=== PATIENT | male | born 1985 | race Caucasian/White ===

== ENCOUNTER 2019-07-01 20:00 | Outpatient (CLI) | payer OTHER, SELFPAY | END 2019-07-01 20:01 | disposition home or self-care (01) | LOC: SLEEP 07-02 09:23 | PROVIDERS: Visit Provider Family Medicine | DX: G47.33 Obstructive sleep apnea (adult) (pediatric) (principal) | CPT/HCPCS: 95810 ==

== ENCOUNTER 2019-08-06 20:00 | Outpatient (CLI) | payer OTHER, SELFPAY | END 2019-08-06 20:01 | disposition home or self-care (01) | LOC: SLEEP 08-07 08:42 | PROVIDERS: Visit Provider Family Medicine | DX: G47.33 Obstructive sleep apnea (adult) (pediatric) (principal) | CPT/HCPCS: 95810; 95811 ==

== ENCOUNTER 2021-12-26 21:08 | Emergency (ER) | payer OTHER, SELFPAY ==
[2021-12-26 21:42] VITALS: BP 132/87; PULSE 84; RESP 18; TEMP 37.1; O2SAT 95; BMI 29.8
[2021-12-26 22:19] LABS: Basophils % 0.5 %; Eosinophils # 0.1 10^3/uL (0.0-0.8); Eosinophils % 2.3 %; Hematocrit 43.9 % (42.0-52.0); Hemoglobin 15.6 g/dL (11.7-16.6); Lymphocytes % 49.1 %; Mean Corpuscular HGB Conc 35.5 g/dL (30.0-36.0); Mean Corpuscular Hemoglobin 30.1 pg (28.0-34.0); Mean Corpuscular Volume 84.6 fl (80-94); Mean Platelet Volume 11.3 fL (7.4-10.4); Monocytes # 0.5 10^3/uL (0.2-0.9); Monocytes % 7.9 %; Neutrophils # 2.45 10^3/uL (1.8-7.7); Nucleated Red Blood Cells % 0 %; Platelet Count 143 10^3/cmm (130-400); Red Blood Count 5.19 10^6/uL (4.1-5.3); Red Cell Distribution Width 11.7 % (12.1-15.1); White Blood Count 6.1 10^3/uL (4.0-10.0)
[2021-12-26 22:21] LABS: Add Urine Microscopic? NO; Charge for UA Resulting for Rev
[2021-12-26 22:28] LABS: Bilirubin Urine Neg (Negative); Blood Urine Neg (Negative); Glucose Urine UA Norm (Normal); Ketones Urine Negative (Negative); Leukocyte Esterase Urine Negative (Negative); Nitrate Urine Negative (Negative); Protein Urine Neg (Negative); Urine Appearance Clear (CLEAR); Urine Color Colorless (Yellow); Urobilinogen Urine Norm (Negative); pH Urine 5 (5-7)
[2021-12-26 22:41] LABS: Alanine Aminotransferase 31 U/L (0-41); Albumin Level 4.6 g/dL (3.5-5.2); Alkaline Phosphatase 72 IU/L (40-130); Anion Gap 16.4 (5-19); Aspartate Amino Transferase 27 U/L (0-40); Blood Urea Nitrogen 13 mg/dL (6-20); Calcium 8.8 mg/dL (8.5-10.5); Carbon Dioxide 24 mmol/L (22-29); Chloride 98 mmol/L (98-107); Globulin 2.4 g/dL (1.3-4.6); Glomerular Filtration Rate 67.8 mL/min (90-130); Glucose 94 mg/dL (65-115); Lipase 43 U/L (13-60); Osmolality Calculated 280 mOsm/kg (285-295); Potassium 3.4 mmol/L (3.5-5.1); Sodium 135 mmol/L (136-145); Total Bilirubin 0.4 mg/dL (0.15-1.2)
--- NOTE | 2021-12-27 00:30 | ED_ITS ---
HPI - Abdominal Pain General: Chief Complaint: Abdominal Pain Stated Complaint: Sever ABD Pain Time Seen by Provider: 12/27/21 00:30 History of Present Illness: Mr. Gonzalez is a 36-year-old gentleman without significant past medical history presents to the emergency department due to abdominal pain. He reports onset of symptoms 1 to 2 months ago without known specific provoking factor. Since that time he has had intermittent episodes though increasing in frequency and intensity of left lower quadrant pinpoint pain with some radiation to the right lower quadrant. This does not seem to be provoked by any certain activity including eating. He does have nausea. He also reports a longstanding history of having to have bowel movements quickly after eating. No history of abdominal trauma or surgeries. Overall course has worsened. Intensity this evening with severe however has since improved to moderate. No other specific changes in health, exacerbating, or alleviating factors identified. Onset (ago): month(s) Pain Consistency: intermittent Location: LLQ Severity: moderate Quality: other Radiation: RLQ Exacerbating factors: nothing Relieving factors: nothing Associated Symptoms: Reports nausea Review of Systems General: Reports: 10 or more systems reviewed and unremarkable except in HPI and below GI: Reports: nausea PFSH ED PFSH: Medical History Actinic keratoses Chronic diarrhea Gout Hyperlipemia No significant past medical history Personal history of traumatic brain injury PTSD (post-traumatic stress disorder) Sleep apnea Surgical History History of left knee surgery No significant past surgical history Social History Smoking and tobacco status: never smoked Physical Exam Const: COMMON NORMALS: alert GENERAL APPEARANCE: cooperative and well developed HENMT: COMMON NORMALS: normocephalic and atraumatic HEAD & SCALP: normocephalic and atraumatic Eye: COMMON NORMALS: conjunctivae normal CONJUNCTIVA: Yes conjunctivae normal SCLERA: sclerae normal Neck/C-Spine: COMMON NORMALS: supple GENERAL: Yes trachea midline Resp: COMMON NORMALS: normal respiratory effort EFFORT & INSPECTION: Yes able to speak in complete sentences Cardio: COMMON NORMALS: regular rate and regular rhythm RATE: regular rate RHYTHM: regular rhythm GI: COMMON NORMALS: Soft to palpation PALPATION: Yes Soft to palpation, Yes Tenderness to palpation present (GI) Details: LLQ, No Guarding due to palpation present (GI), No Rigid due to palpation and No Rebound tenderness present PERCUSSION: normal to percussion Extremity: GENERAL: Yes normal exam except as noted and No edema Neuro: COMMON NORMALS: moves all extremities SENSORIUM/ORIENTATION: Yes alert and No Orientation impaired Psych: COMMON NORMALS: mental status grossly normal and Normal thought process present THOUGHT PROCESS: Normal thought process present Course ED course: - Patient was seen and evaluated by me at bedside - Patient placed on cardiac monitors, IV access obtained - Initial evaluation notable for exam as above - Labs personally interpreted by me -Analgesia given - Labs notable for no leukocytosis, normal hemoglobin. Metabolic panel with mild evidence of dehydration. Negative UA. - Given abdominal exam I feel that imaging is appropriate. Imaging notable for no acute pathology to explain symptoms. I did discuss the indeterminate 7 mm lesion in the lower left kidney requires further evaluation. - Upon serial reexamination after treatment the patient was improved - Based on patient history, evaluation, and testing as interpreted the most likely cause of the patient's condition is abdominal pain of uncertain etiology - The results of ED evaluation were discussed with the patient including prescriptions and/or symptomatic cares (if applicable) including appropriate and responsible use, followup plan, and return precautions. The patient verbalized understanding and felt safe for discharge. - Patient discharged in satisfactory condition. Note: Click bubbles or prepopulated shields in note writing are used for assistance with data collection and billing and are inherently more limited than narrative and other text portions of this note. Please use narrative for additional clinical history and defer to narrative/free test for any case of contradictory information. If information appears in only free text or click bubble it should be considered present or absent as reported. Please contact note commercial loan underwriter for clarifications of clinical information or contradictory information. MDM is a brief summary, contradictory or erroneous seeming information should be clarified and full note should be reviewed. Vital Signs: Vital signs: Vital Signs Temperature 98.7 F 12/26/21 21:42 Pulse Rate 84 12/27/21 03:26 Respiratory Rate 16 12/27/21 03:26 Blood Pressure 139/91 12/27/21 03:26 Pulse Oximetry 97 12/27/21 03:26 Oxygen Delivery Hi thod 12/26/21 21:42 MDM - Abdominal Pain Medical Decision Making 36-year-old gentleman presenting with abdominal pain. Labs without significant abnormality with exception mild dehydration. CT without acute pathology to explain symptoms. Patient does have indeterminant 7 mm renal lesion requiring further evaluation. He was improved after treatment and satisfactory for outpatient management. Medical Records I reviewed the patient's medical records. Lab Data I reviewed the patient's lab results. : 12/26/21 22:04 12/26/21 22:04 Labs/Radiology: Radiology Impressions Abdomen/Pelvis CT 12/27/21 00:41 IMPRESSION: 1. Normal appendix. 2. Indeterminate 7 mm lesion in the lateral lower left kidney. This could represent a complex cyst or solid mass/neoplasm. Further evaluation recommended, see above discussion. 3. Additional probable left renal cysts, details above. 4. No hydronephrosis of either kidney. No visible ureteral calculus. 5. No findings to strongly suggest diverticulitis. 6. No free air or bowel distention. 7. Other findings discussed above. COMMENTS: Consistent with the [employer]'s Incidental Findings Committee white paper (J Am Franny Radiol 2018): Any incidental renal lesion less than 1 cm or classified as too small to characterize, or any incidental cystic renal lesion characterized as simple-appearing, is likely benign. No follow-up imaging is recommended for these lesions per consensus recommendations based on imaging criteria. Laboratory Results WBC 6.1 10^3/uL (4.0-10.0) 12/26/21 22:04 RBC 5.19 10^6/uL (4.1-5.3) 12/26/21 22:04 Hgb 15.6 g/dL (11.7-16.6) 12/26/21 22:04 Hct 43.9 % (42.0-52.0) 12/26/21 22:04 MCV 84.6 fl (80-94) 12/26/21 22:04 MCH 30.1 pg (28.0-34.0) 12/26/21 22:04 MCHC 35.5 g/dL (30.0-36.0) 12/26/21 22:04 RDW 11.7 % (12.1-15.1) L 12/26/21 22:04 Plt Count 143 10^3/cmm (130-400) 12/26/21 22:04 MPV 11.3 fL (7.4-10.4) H 12/26/21 22:04 Neut % (Auto) 40.0 % 12/26/21 22:04 Lymph % (Auto) 49.1 % 12/26/21 22:04 [place] % (Auto) 7.9 % 12/26/21 22:04 Eos % (Auto) 2.3 % 12/26/21 22:04 Baso % (Auto) 0.5 % 12/26/21 22:04 Neut # (Auto) 2.45 10^3/uL (1.8-7.7) 12/26/21 22:04 Lymph # (Auto) 3.0 10^3/uL (0.8-4.8) 12/26/21 22:04 [place] # (Auto) 0.5 10^3/uL (0.2-0.9) 12/26/21 22:04 Eos # (Auto) 0.1 10^3/uL (0.0-0.8) 12/26/21 22:04 Baso # (Auto) 0.0 10^3/uL (0.0-0.1) 12/26/21 22:04 Nucleated RBC % (auto) 0 % 12/26/21 22:04 Nucleated RBCs # 0.0 /100WBC 12/26/21 22:04 Sodium 135 mmol/L (136-145) L 12/26/21 22:04 Potassium 3.4 mmol/L (3.5-5.1) L 12/26/21 22:04 Chloride 98 mmol/L (98-107) 12/26/21 22:04 Carbon Dioxide 24 mmol/L (22-29) 12/26/21 22:04 Anion Gap 16.4 (5-19) 12/26/21 22:04 BUN 13 mg/dL (6-20) 12/26/21 22:04 Creatinine 1.2 mg/dL (0.7-1.2) 12/26/21 22:04 GFR Calculation 67.8 mL/min (90-130) L 12/26/21 22:04 Glucose 94 mg/dL (65-115) 12/26/21 22:04 Calculated Osmolality 280 mOsm/kg (285-295) L 12/26/21 22:04 Calcium 8.8 mg/dL (8.5-10.5) 12/26/21 22:04 Total Bilirubin 0.4 mg/dL (0.15-1.2) 12/26/21 22:04 AST 27 U/L (0-40) 12/26/21 22:04 ALT 31 U/L (0-41) 12/26/21 22:04 Alkaline Phosphatase 72 IU/L (40-130) 12/26/21 22:04 Total Protein 7.0 g/dL (6.6-8.7) 12/26/21 22:04 Albumin 4.6 g/dL (3.5-5.2) 12/26/21 22:04 Globulin 2.4 g/dL (1.3-4.6) 12/26/21 22:04 Lipase 43 U/L (13-60) 12/26/21 22:04 Urine Color Colorless (Yellow) 12/26/21 22:00 Urine Appearance Clear (CLEAR) 12/26/21 22:00 Urine pH 5 (5-7) 12/26/21 22:00 Ur Specific [place] 1.010 (1.005-1.030) 12/26/21 22:00 Urine Protein Neg (Negative) 12/26/21 22:00 Urine Glucose (UA) Norm (Normal) 12/26/21 22:00 Urine Ketones Negative (Negative) 12/26/21 22:00 Urine Blood Neg (Negative) 12/26/21 22:00 Urine Nitrate Negative (Negative) 12/26/21 22:00 Urine Bilirubin Neg (Negative) 12/26/21 22:00 Urine Urobilinogen Norm mg/dL (Negative) 12/26/21 22:00 Ur Leukocyte Esterase Negative (Negative) 12/26/21 22:00 Discharge Plan Discharge Patient Disposition: Home Clinical Impression: Abdominal pain, Complex renal cyst, Renal cyst, Mild dehydration Condition: Stable Prescriptions: New ondansetron 4 mg tablet,disintegrating 4 mg PO Q8H PRN (Reason: nausea and vomiting) Qty: 15 0RF oxycodone 5 mg tablet 5 mg PO Q4H PRN (Reason: pain) Qty: 6 0RF Discharge Orders: Discharge ED (Routine); Ordered 12/27/21 Ordered By: Abel Pinzon Discharge Diet: Usual diet Discharge Activity: Resume usual activity Patient Instructions: Abdominal Pain (ED), Opioid Safety Activity Restrictions/Additional Instructions: Thank you for visiting the emergency department. You were seen and evaluated for abdominal pain. The exact cause of your symptoms is unclear. You are found to have mild dehydration. Additionally, as discussed, you do have renal cysts which require follow-up. Given duration of symptoms I will refer you to GI or general surgery for consideration of endoscopy. Please follow-up with your primary care provider for outpatient ultrasound or MRI. Please return to the emergency department for worsening symptoms or anything else that you are concerned about a feel needs emergency department evaluation. Coding Level of Care Code ED Clubhouse Attendant for [facility] F[facility] Exam Comprehensive
--- NOTE | 2021-12-27 00:41 | CTR_ITS ---
PROCEDURE INFORMATION: Exam: CT Abdomen And Pelvis With Contrast Exam date and time: 12/27/2021 1:56 AM Age: 36 years old Clinical indication: Abdominal pain; Localized; Patient HX: C/O worsening lower abd pain. ; Additional info: Llq pain with radiation to rlq TECHNIQUE: Imaging protocol: Computed tomography of the abdomen and pelvis with contrast. Radiation optimization: All CT scans at this facility use at least one of these dose optimization techniques: automated exposure control; mA and/or kV adjustment per patient size (includes targeted exams where dose is matched to clinical indication); or iterative reconstruction. Contrast material: OMNI 350; Contrast volume: 95 ml; Contrast route: INTRAVENOUS (IV); COMPARISON: No relevant prior studies available. RADIATION DOSE METRICS: Total DLP (mGy-cm): 1180.93 FINDINGS: Lungs: The lung bases are clear. Liver: Unremarkable. Gallbladder and bile ducts: The gallbladder is partially contracted. No visible gallstones by CT. No biliary tree dilation. Pancreas: Unremarkable. Spleen: Unremarkable. Adrenal glands: Unremarkable. Kidneys and ureters: No hydronephrosis of either kidney. No visible ureteral calculus. Several relatively simple appearing left renal cysts, largest measuring up 2.5 cm. Some of these lesions are too small to accurately characterize by CT. Subtle 7 mm lesion complex cyst or lesion involving the lateral lower left kidney, (axial image # 33, series 3). This lesion measures greater than water attenuation, and may show some enhancement. A small solid mass/neoplasm, such as renal cell carcinoma is not excluded. Further evaluation and possible of cystic nature with ultrasound or MRI recommended to exclude a solid mass/neoplasm, if not already performed. The kidneys otherwise enhance homogeneously. No perinephric fluid. Stomach and bowel: No significant bowel distention. There are no CT findings to strongly suggest diverticulitis. Appendix: The appendix is visualized and appears normal. Intraperitoneal space: No free intraperitoneal air, or ascites. Vasculature: No evidence for abdominal aortic aneurysm. Lymph nodes: No retroperitoneal adenopathy. Urinary bladder: No visible calculus in the urinary bladder. The bladder is almost empty, limiting evaluation. Reproductive: Essentially unremarkable for age. Bones/joints: No significant acute finding. Soft tissues: Small left inguinal hernia, containing only fat. CT/CT abdomen pelvis w con* [id number] IMPRESSION: 1. Normal appendix. 2. Indeterminate 7 mm lesion in the lateral lower left kidney. This could represent a complex cyst or solid mass/neoplasm. Further evaluation recommended, see above discussion. 3. Additional probable left renal cysts, details above. 4. No hydronephrosis of either kidney. No visible ureteral calculus. 5. No findings to strongly suggest diverticulitis. 6. No free air or bowel distention. 7. Other findings discussed above. COMMENTS: Consistent with the [employer]'s Incidental Findings Committee white paper (J Am Franny Radiol 2018): Any incidental renal lesion less than 1 cm or classified as too small to characterize, or any incidental cystic renal lesion characterized as simple-appearing, is likely benign. No follow-up imaging is recommended for these lesions per consensus recommendations based on imaging criteria.
[2021-12-27 00:46] VITALS: BP 126/78; PULSE 87; RESP 16; O2SAT 95
[2021-12-27] MEDS: ketorolac 30 mg/mL INJ 15 MG IVP (01:10)
[2021-12-27] MEDS: iohexol 350 mg/mL 100 mL Btl IV (02:05)
[2021-12-27 02:54] VITALS: BP 138/87
[2021-12-27 03:15] VITALS: RESP 16
[2021-12-27] MEDS: oxyCODONE 5 mg IR Tab/Cap PO (03:15)
[2021-12-27 03:26] VITALS: BP 139/91; PULSE 84; RESP 16; O2SAT 97
--- NOTE | 2021-12-27 14:35 | DCPLANNER ---
Addendum entered by Jacklyn Bustillos 01/11/22 10:27: Patient had a follow up appointment scheduled with general surgery - patient did attend appointment. Addendum entered by Jacklyn Bustillos 01/02/22 15:37: Patient has a follow up appointment scheduled for Wednesday, January 05, 2022 at 11:[address] Madrigal. Clinic will call patient with appointment information. Original Note: armored transport service manager had message to schedule a follow up appointment for patient with general surgery. armored transport service manager sent patients information to the front office staff at general surgery. Patients information will be printed and reviewed. Clinic will call patient with appointment information.
== END 2021-12-27 03:18 | disposition home or self-care (01) ==
PROVIDERS: Emergency Provider Emergency Medicine
DX: R10.9 Unspecified abdominal pain (principal); N28.1 Cyst of kidney, acquired; E86.0 Dehydration; E78.5 Hyperlipidemia, unspecified
CPT/HCPCS: 74177; 80053; 81003; 83690; 85025; 96374; 99285; J1885; Q9967

== ENCOUNTER → 2022-01-05 11:23 | Outpatient (BNVA) | payer OTHER, SELFPAY | PROVIDERS: PCP Nurse Practitioner; Visit Provider Surgery | DX: K40.90 Unilateral inguinal hernia, without obstruction or gangrene, not specified as recurrent (principal); N28.89 Other specified disorders of kidney and ureter | CPT/HCPCS: 99203 ==

== ENCOUNTER 2022-01-30 14:46 | Outpatient (CLI) | payer OTHER, SELFPAY ==
--- NOTE | 2022-01-30 15:00 | US_ITS ---
WS: [id number] RENAL ULTRASOUND HISTORY: Possible LEFT renal mass seen on CT. COMPARISON: 12/27/2021 TECHNIQUE: 2-D and color Doppler imaging of the kidney submitted. Right kidney: 10.8 cm x 4.4 cm x 5.2 cm. Normal echogenicity with no hydronephrosis or mass. Left kidney: 9.9 cm x 4.9 cm x 5.4 cm. Normal size kidney. Patient has several cysts and indeterminate lesion within the LEFT kidney. Only t he largest cyst is identified from the mid kidney measuring 1.9 x 2.4 x 2.3 cm. Indeterminate lesion from the inferior pole extending laterally is not evident. This is due to the small size. Aorta: Normal. Urinary Bladder: Normal distention. US/US renal BI* [id number] IMPRESSION: 1. No renal obstruction or solid mass identified. 2. LEFT renal cyst. 3. Solid nodule seen on the recent CT in the lower pole is too small to be vis ualized by ultrasound. Recommend follow-up renal CT mass protocol in 6 months o r MRI kidneys with contrast.
== END 2022-01-30 14:47 | disposition home or self-care (01) ==
LOC: RAD 14:46
PROVIDERS: PCP Nurse Practitioner; Visit Provider Family Medicine
DX: Z01.89 Encounter for other specified special examinations (principal); N28.1 Cyst of kidney, acquired
CPT/HCPCS: 76770

== ENCOUNTER 2022-03-29 05:58 | Day surgery (SDC) | payer OTHER, SELFPAY ==
[2022-03-28 12:04] VITALS: BMI 29.2
[2022-03-29] VITALS (12 sets, daily range): BP systolic 123–163; BP diastolic 80–110; PULSE 78–92; RESP 14–18; TEMP 36.1–36.6; O2SAT 97–99
[2022-03-29] MEDS: sodium chloride 0.9% 1,000 ML 30 ML IV (06:29)
--- NOTE | 2022-03-29 06:58 | P.HP_ITS ---
Providers/Chief Complaint Primary Care Provider: THEE Draper Chief Complaint: unilateral inguinal hernia, w/o obstruction History of Present Illness Peter Gonzalez is a 37 year old male HERE FOR Laparoscopic repair of left inguinal hernia with mesh, possible bilateral Medications/Allergies Home Medications Medication Instructions Recorded Confirmed Last Taken Type No Known Home Medications 03/29/22 03/29/22 Unknown History Allergies Allergy/AdvReac Type Severity Reaction Status Date / Time No Known Allergies Allergy Verified 03/29/22 06:08 PFSH Acute PFSH: Medical History (Updated 02/06/22 @ 07:22 by Prosper Rowan MD) Actinic keratoses Chronic diarrhea Gout Hyperlipemia No significant past medical history Personal history of traumatic brain injury PTSD (post-traumatic stress disorder) Sleep apnea Surgical History History of left knee surgery No significant past surgical history Social History Smoking and tobacco status: never smoked Vitals/I&O/Wt Last Vital Signs Temp 97.8 F 03/29/22 06:13 Pulse 80 03/29/22 06:13 Resp 16 03/29/22 06:13 BP 130/90 03/29/22 06:13 Pulse Ox 97 03/29/22 06:13 O2 Del Method 03/29/22 06:13 Weight last 48 hrs Weight 216 lb A&P Assessment and plan (1) Left inguinal hernia: Plan Laparoscopic repair of left inguinal hernia with mesh, possible bilateral Attestations Medical Necessity Statement*: Home Coding Level of Care Code Acute Burnishing Machine Operator for [facility] Fwd Diagnoses Left inguinal hernia K40.90
[2022-03-29] MEDS: ceFAZolin 2,000 MG in sodium chloride 0.9% (plus) 50 ML 100 MG IV (07:04)
--- NOTE | 2022-03-29 07:57 | PM.OP ---
Operative Report Date of procedure: March 29, 2022 Pre-op diagnosis: Preop Diagnosis Left inguinal hernia Post-op diagnosis: same Procedure done: Laparoscopic repair of left inguinal hernia with mesh Implants: Extra-large left 3D max Bard mesh Specimens removed/disposition: None Surgeon: Dr. Ladarius Madrigal DO Anesthesia: General Estimated blood loss (mL): 5 Complications: None apparent Brief History: This is a very pleasant 37-year-old gentleman with a left inguinal hernia. Repair was indicated. Risks and benefits were explained and documented. Procedure: Patient was wheeled into the operative room and placed on the OR table in a supine position. Abdomen was inspected prepped and draped in usual sterile fashion. Time-out was performed and all present were in agreement. A 15 blade scalpel was used to make 1.2 centimeter incision infraumbilically. Combination of sharp and blunt dissection was performed down to the anterior rectus sheath which was opened sharply. The dissecting balloon was then inserted into the space of Retzius and blown up. We put the camera into the port and identified that we were in the correct space. I then placed 2 5 millimeter trocars suprapubically in the midline. I then used endokitners to bluntly dissect in the space of Retzius out laterally. An indirect inguinal hernia was identified on the left. Blunt dissection was performed to dissect down the hernia sac until the vas deferens dove medially. There was a very large lipoma going into the hernia, which I removed from the space. An extra-large left inguinal mesh was then placed into the space of Retzius. The mesh was unrolled and tacked once medially at the pubic bone. The mesh laid out nicely over the spermatic cord. Minimal dissection was done on the right and no inguinal hernia was identified. I watched the hernia sac remained in place as insufflation was removed. Incisions were closed with 4 O Vicryl in a subcuticular interrupted fashion. Skin glue was applied. Patient tolerated the procedure well.
[2022-03-29] MEDS: ketorolac 30 mg/mL INJ 15 MG IVP (08:24)
[2022-03-29] MEDS: fentaNYL 50 mcg/mL INJ 2mL IVP (08:24)
--- NOTE | 2022-03-29 16:46 | P.ANESASSM_ITS ---
Pre-Anesthetic Assessment Height/Weight: Height 1.83 m Weight 97.976 kg Temp Pulse Resp BP Pulse Ox O2 Del Method O2 Flow Rate 97.8 F 80 16 150/99 97 6 03/29/22 09:10 03/29/22 09:10 03/29/22 09:10 03/29/22 09:10 03/29/22 09:10 03/29/22 09:10 03/29/22 08:29 Preop Diagnosis: Left inguinal hernia Operation Date: 03/29/22 07:00 Proposed Procedures p lap left inguinal hernia repair possible bilateral 19578,K40.90(Left) - Ladarius Madrigal DO Familial anesthetic complications: none Was Beta Debra taken within 24 hours: N/A Was Clonidine taken within 24 hours: N/A Last intake: Intake Last Liquid Date 03/28/22 Last Liquid Time 21:00 Last Solid Date 03/28/22 Last Solid Time 21:00 Social No alcohol and No tobacco Exam alert, oriented x 3, clear to auscultation bilaterally and regular rate & rhythm Airway Submandibular: within normal limits Cervical ROM: within normal limits Mallampati: Class II Dentition: full History/ROS No significant history except as noted Neuropsych PTSD Anesthetic Plan ASA status: 2 Anesthesia: General Medications/Allergies Home Medications Medication Instructions Recorded Confirmed Last Taken Type hydrocodone 7.5 mg-acetaminophen 1 tab PO Q6H PRN pain #20 tabs 03/29/22 Unknown Rx 325 mg tablet Allergies Allergy/AdvReac Type Severity Reaction Status Date / Time No Known Allergies Allergy Verified 03/29/22 06:08 [facility] Anesthesia Medical History (Updated 02/06/22 @ 07:22 by Prosper Rowan MD) Actinic keratoses Chronic diarrhea Gout Hyperlipemia No significant past medical history Personal history of traumatic brain injury PTSD (post-traumatic stress disorder) Sleep apnea Surgical History History of left knee surgery No significant past surgical history Social History Smoking and tobacco status: never smoked Data Anesthesia Cardiac Studies: No Data to Display
--- NOTE | 2022-03-29 16:47 | ANE.PACU2 ---
Inpatient post-anesthesia follow up: Airway intact: Yes Vital signs: Temperature 97.8 F Pulse Rate 80 Respiratory Rate 16 Blood Pressure 150/99 Pulse Oximetry 97 Oxygen Delivery Me thod Room Air Oxygen Flow Rate 6 Fraction of Inspir ed Oxygen Hydration adequate: Yes Nausea and vomiting: No Pain level: 3 Mental status: Baseline
== END 2022-03-29 09:30 | disposition home or self-care (01) ==
PROVIDERS: PCP Nurse Practitioner; Visit Provider Surgery
PROC: (CPT 49650; principal; 2022-03-29 07:00)
DX: K40.90 Unilateral inguinal hernia, without obstruction or gangrene, not specified as recurrent (principal); E78.5 Hyperlipidemia, unspecified; G47.30 Sleep apnea, unspecified
CPT/HCPCS: 49650; 51702; J1100; J1885; J2405; J2704; J2710; J3010; J3490; J7030

== ENCOUNTER → 2022-04-13 12:56 | Outpatient (BNVA) | payer OTHER, SELFPAY | PROVIDERS: PCP Nurse Practitioner; Visit Provider Surgery | DX: Z98.890 Other specified postprocedural states (principal); Z87.19 Personal history of other diseases of the digestive system | CPT/HCPCS: 99024 ==

== ENCOUNTER 2022-07-24 11:33 | Emergency (ER) | payer OTHER, SELFPAY ==
[2022-07-24 11:36] VITALS: BP 147/94; PULSE 96; RESP 20; TEMP 36.4; O2SAT 96; BMI 30.7
--- NOTE | 2022-07-24 11:46 | XRR_ITS ---
PROCEDURE INFORMATION: Exam: XR Left Ankle Exam date and time: 07/24/2022 12:36 PM Age: 37 years old Clinical indication: Pain; Ankle; Left; Additional info: Ankle pain TECHNIQUE: Imaging protocol: Radiologic exam of the Left ankle. Views: 1 or 2 views. COMPARISON: No relevant prior studies available. FINDINGS: Bones/joints: Negative for acute bony abnormality Soft tissues: Normal. XR/XR ankle LT 2V [id number] IMPRESSION: No acute findings.
[2022-07-24 12:55] LABS: Basophils % 0.4 %; Eosinophils % 0.5 %; Hematocrit 40.5 % (42.0-52.0); Hemoglobin 13.9 g/dL (11.7-16.6); Lymphocytes # 1.8 10^3/uL (0.8-4.8); Lymphocytes % 22.4 %; Mean Corpuscular HGB Conc 34.3 g/dL (30.0-36.0); Mean Corpuscular Hemoglobin 30.2 pg (28.0-34.0); Mean Corpuscular Volume 87.9 fl (80-94); Mean Platelet Volume 10.4 fL (7.4-10.4); Monocytes # 0.5 10^3/uL (0.2-0.9); Monocytes % 6.6 %; Neutrophils # 5.55 10^3/uL (1.8-7.7); Neutrophils % 69.2 %; Nucleated Red Blood Cells % 0 %; Platelet Count 169 10^3/cmm (130-400); Red Blood Count 4.61 10^6/uL (4.1-5.3); Red Cell Distribution Width 12.7 % (12.1-15.1)
[2022-07-24] MEDS: HYDROcodone-acetaminophen 5-325 mg Tablet 1 TAB PO (13:05)
--- NOTE | 2022-07-24 13:16 | W.ED.EXTPRO ---
Documented by User: DANIEL Yang 07/24/22 14:11 HPI - Extremity Problem General: Chief complaint: Extremity Injury, Lower Stated complaint: left foot pain Time Seen by Provider: 07/24/22 11:44 History of Present Illness: Patient is in for left ankle pain. He reports that he has been having ankle pain for the past year. He reports that he had an initial period of time when the ankle was swollen and inflamed and painful. He reports it lasted a few days and then went away and then he did not have another episode for approximately 6 months. He reports that he has been to the [place] several times in the past couple of months for this ankle pain. He reports that he has not had any known injury to the ankle. He reports that they told him that it was likely gout. He reports that he has not had any blood work to evaluate for uric acid level. He states that he has taken the medication as prescribed including colchicine and nonsteroidal anti-inflammatories with no benefit. He reports that the ankle is 8 out of 10 pain scale. He reports that it hurts all of the time especially with dorsiflexion and plantarflexion. He does have a history of knee pain and injury from service. He does offer that when he was diagnosed with gout he had been eating a diet high in red meat and beer but since that time he has cut all of those foods out. He offers that he had hernia surgery recently and they discovered a mass on his kidney that he is awaiting for another follow-up CT over. Associated symptoms: Deny chest pain or fever(s) Review of Systems Const: Denies: fever(s), chills or body aches Eyes: Denies: change in vision or blurry vision ENMT: Denies: throat pain Card: Denies: chest pain, palpitations, irregular heart rhythm, lightheadedness or syncope Resp: Denies: dyspnea, productive cough or non-productive cough GI: Denies: abdominal pain, nausea or vomiting : Denies: flank pain, dysuria, urinary frequency, urinary urgency or urinary hesitancy Musc: Reports: joint pain and joint swelling Neuro: Denies: headache(s), numbness in extremities or weakness in extremities PFS ED PFSH: Medical History Actinic keratoses Chronic diarrhea Gout Hyperlipemia No significant past medical history Personal history of traumatic brain injury PTSD (post-traumatic stress disorder) Sleep apnea Surgical History History of left inguinal hernia repair 03/29/22 History of left knee surgery No significant past surgical history Social History Smoking and tobacco status: never smoked Physical Exam Const: COMMON NORMALS: no acute distress, patient oriented x3, healthy appearing, alert and well nourished Resp: COMMON NORMALS: normal respiratory effort and No use of accessory muscles Extremity: NARRATIVE EXTREMITY EXAM: Tenderness to palpation medial and lateral left ankle surrounding the malleolus. It is not point tenderness over the malleolus. Patient with increased pain with dorsiflexion and plantarflexion. There is mild swelling about the lateral malleolus. Pedal pulses intact. Foot is warm. Patient is unable to bear weight. Neuro: COMMON NORMALS: patient oriented x3 SENSORIUM/ORIENTATION: Yes alert Course Vital Signs: Vital signs: Vital Signs Temperature 97.6 F 07/24/22 11:36 Pulse Rate 84 07/24/22 14:16 Respiratory Rate 20 H 07/24/22 14:16 Blood Pressure 147/94 07/24/22 11:36 Pulse Oximetry 97 07/24/22 14:16 Oxygen Delivery Me thod 07/24/22 11:36 MDM - Extremity (Nontraumatic) Medical Decision Making Differentials include gout, arthritis, sprain, neuropathy from previous left knee injury Labs are checked given patient's vague report of a possible kidney mass. Make sure that kidney function is within normal limits and check uric acid. Uric acid within normal limits, creatinine upper limits of normal at 1.0, anion gap is 19. Discussed lab results with patient. X-ray ankle 3 view wet read: No acute osseous deformity X-ray ankle radiologist read: No acute finding Discussed radiology report with patient. Advised patient that at this time he does not have an elevated uric acid level, he does not show any acute osseous deformities on his x-ray. I will treat him conservatively with Ryan wrap, limited weightbearing x3 to 5 days (patient states he has his own crutches), nonsteroidal anti-inflammatory Toradol injection today. Consult to case management to help with referral to orthopedics for further evaluation. advised him to follow-up with primary care provider and orthopedics. Return to the ER as needed for new or worsening symptoms. Patient request hydrocodone, as that is the only thing that has helped him, and I advised him that hydrocodone is not indicated at this time for chronic pain condition. Follow-up with primary care provider for address of pain control for ongoing pain with the ankle Lab Data 07/24/22 12:45 07/24/22 12:45 Radiology Impressions Ankle X-Ray 07/24/22 11:46 IMPRESSION: No acute findings. Laboratory Results WBC 8.0 10^3/uL (4.0-10.0) 07/24/22 12:45 RBC 4.61 10^6/uL (4.1-5.3) 07/24/22 12:45 Hgb 13.9 g/dL (11.7-16.6) 07/24/22 12:45 Hct 40.5 % (42.0-52.0) L 07/24/22 12:45 MCV 87.9 fl (80-94) 07/24/22 12:45 MCH 30.2 pg (28.0-34.0) 07/24/22 12:45 MCHC 34.3 g/dL (30.0-36.0) 07/24/22 12:45 RDW 12.7 % (12.1-15.1) 07/24/22 12:45 Plt Count 169 10^3/cmm (130-400) 07/24/22 12:45 MPV 10.4 fL (7.4-10.4) 07/24/22 12:45 Neut % (Auto) 69.2 % 07/24/22 12:45 Lymph % (Auto) 22.4 % 07/24/22 12:45 [place] % (Auto) 6.6 % 07/24/22 12:45 Eos % (Auto) 0.5 % 07/24/22 12:45 Baso % (Auto) 0.4 % 07/24/22 12:45 Neut # (Auto) 5.55 10^3/uL (1.8-7.7) 07/24/22 12:45 Lymph # (Auto) 1.8 10^3/uL (0.8-4.8) 07/24/22 12:45 [place] # (Auto) 0.5 10^3/uL (0.2-0.9) 07/24/22 12:45 Eos # (Auto) 0.0 10^3/uL (0.0-0.8) 07/24/22 12:45 Baso # (Auto) 0.0 10^3/uL (0.0-0.1) 07/24/22 12:45 Nucleated RBC % (auto) 0 % 07/24/22 12:45 Nucleated RBCs # 0.0 /100WBC 07/24/22 12:45 Sodium 140 mmol/L (136-145) 07/24/22 12:45 Potassium 3.6 mmol/L (3.5-5.1) 07/24/22 12:45 Chloride 100 mmol/L (98-107) 07/24/22 12:45 Carbon Dioxide 24 mmol/L (22-29) 07/24/22 12:45 Anion Gap 19.6 (5-19) H 07/24/22 12:45 BUN 12 mg/dL (6-20) 07/24/22 12:45 Creatinine 1.0 mg/dL (0.7-1.2) 07/24/22 12:45 GFR Calculation 83.2 mL/min (90-130) L 07/24/22 12:45 Glucose 102 mg/dL (65-115) 07/24/22 12:45 Calculated Osmolality 290 mOsm/kg (285-295) 07/24/22 12:45 Uric Acid 6.7 mg/dL (3.4-7.0) 07/24/22 12:45 Calcium 9.4 mg/dL (8.5-10.5) 07/24/22 12:45 Total Bilirubin 0.3 mg/dL (0.15-1.2) 07/24/22 12:45 AST 25 U/L (0-40) 07/24/22 12:45 ALT 39 U/L (0-41) 07/24/22 12:45 Alkaline Phosphatase 75 U/L (40-130) 07/24/22 12:45 Total Protein 7.7 g/dL (6.6-8.7) 07/24/22 12:45 Albumin 4.8 g/dL (3.5-5.2) 07/24/22 12:45 Globulin 2.9 g/dL (1.3-4.6) 07/24/22 12:45 Discharge Plan Discharge Patient Disposition: Home Clinical Impression: Ankle pain Qualifiers: Chronicity: unspecified Laterality: left Qualified Code(s): M25.572 - Pain in left ankle and joints of left foot Condition: Stable Prescriptions: New prednisone 20 mg tablet 40 mg PO DAILY 5 Days Qty: 10 0RF No Action hydrocodone-acetaminophen 7.5-325 mg tablet 1 tab PO Q6H PRN (Reason: pain) Qty: 20 0RF Discharge Orders: Discharge ED (Routine); Ordered 07/24/22 Ordered By: Kristan Pereyra Referrals: Shyann Corrales FNP [Primary Care Provider] - Patient Instructions: Swollen Joint (ED) Activity Restrictions/Additional Instructions: Take steroids as directed with food. Wait 6 to 8 hours before taking any more NSAIDs today as you received a Toradol injection in ER. Make sure that you are staying well-hydrated with water. I recommend conservative treatment including ice, rest, elevation. Ryan wrap the ankle. Use crutches for the next 5 to 7 days to allow the ankle to rest. follow-up with orthopedics (referral was sent today). Follow-up with primary care provider for continued evaluation and monitoring. Return to the ER as needed for new or worsening symptoms Coding Level of Care Code ED Supervisor [facility] System for Chg Fwd Documented by User: Al Morales DO 07/24/22 16:05 HPI - Extremity Problem General: Chief complaint: Extremity Injury, Lower Stated complaint: left foot pain Time Seen by Provider: 07/24/22 11:44 PFSH ED PFSH: Medical History Actinic keratoses Chronic diarrhea Gout Hyperlipemia No significant past medical history Personal history of traumatic brain injury PTSD (post-traumatic stress disorder) Sleep apnea Surgical History History of left inguinal hernia repair 03/29/22 History of left knee surgery No significant past surgical history Social History Smoking and tobacco status: never smoked Course Vital Signs: Vital signs: Vital Signs Temperature 97.6 F 07/24/22 11:36 Pulse Rate 84 07/24/22 14:16 Respiratory Rate 20 H 07/24/22 14:16 Blood Pressure 147/94 07/24/22 11:36 Pulse Oximetry 97 07/24/22 14:16 Oxygen Delivery Me thod 07/24/22 11:36 MDM - Extremity (Nontraumatic) Medical Decision Making Differentials include gout, arthritis, sprain, neuropathy from previous left knee injury Labs are checked given patient's vague report of a possible kidney mass. Make sure that kidney function is within normal limits and check uric acid. Uric acid within normal limits, creatinine upper limits of normal at 1.0, anion gap is 19. Discussed lab results with patient. X-ray ankle 3 view wet read: No acute osseous deformity X-ray ankle radiologist read: No acute finding Discussed radiology report with patient. Advised patient that at this time he does not have an elevated uric acid level, he does not show any acute osseous deformities on his x-ray. I will treat him conservatively with Ryan wrap, limited weightbearing x3 to 5 days (patient states he has his own crutches), nonsteroidal anti-inflammatory Toradol injection today. Consult to case management to help with referral to orthopedics for further evaluation. advised him to follow-up with primary care provider and orthopedics. Return to the ER as needed for new or worsening symptoms. Patient request hydrocodone, as that is the only thing that has helped him, and I advised him that hydrocodone is not indicated at this time for chronic pain condition. Follow-up with primary care provider for address of pain control for ongoing pain with the ankle Chart reviewed and patient discussed with midlevel. Agree with assessment and plan. Lab Data 07/24/22 12:45 07/24/22 12:45 Radiology Impressions Ankle X-Ray 07/24/22 11:46 IMPRESSION: No acute findings. Laboratory Results WBC 8.0 10^3/uL (4.0-10.0) 07/24/22 12:45 RBC 4.61 10^6/uL (4.1-5.3) 07/24/22 12:45 Hgb 13.9 g/dL (11.7-16.6) 07/24/22 12:45 Hct 40.5 % (42.0-52.0) L 07/24/22 12:45 MCV 87.9 fl (80-94) 07/24/22 12:45 MCH 30.2 pg (28.0-34.0) 07/24/22 12:45 MCHC 34.3 g/dL (30.0-36.0) 07/24/22 12:45 RDW 12.7 % (12.1-15.1) 07/24/22 12:45 Plt Count 169 10^3/cmm (130-400) 07/24/22 12:45 MPV 10.4 fL (7.4-10.4) 07/24/22 12:45 Neut % (Auto) 69.2 % 07/24/22 12:45 Lymph % (Auto) 22.4 % 07/24/22 12:45 [place] % (Auto) 6.6 % 07/24/22 12:45 Eos % (Auto) 0.5 % 07/24/22 12:45 Baso % (Auto) 0.4 % 07/24/22 12:45 Neut # (Auto) 5.55 10^3/uL (1.8-7.7) 07/24/22 12:45 Lymph # (Auto) 1.8 10^3/uL (0.8-4.8) 07/24/22 12:45 [place] # (Auto) 0.5 10^3/uL (0.2-0.9) 07/24/22 12:45 Eos # (Auto) 0.0 10^3/uL (0.0-0.8) 07/24/22 12:45 Baso # (Auto) 0.0 10^3/uL (0.0-0.1) 07/24/22 12:45 Nucleated RBC % (auto) 0 % 07/24/22 12:45 Nucleated RBCs # 0.0 /100WBC 07/24/22 12:45 Sodium 140 mmol/L (136-145) 07/24/22 12:45 Potassium 3.6 mmol/L (3.5-5.1) 07/24/22 12:45 Chloride 100 mmol/L (98-107) 07/24/22 12:45 Carbon Dioxide 24 mmol/L (22-29) 07/24/22 12:45 Anion Gap 19.6 (5-19) H 07/24/22 12:45 BUN 12 mg/dL (6-20) 07/24/22 12:45 Creatinine 1.0 mg/dL (0.7-1.2) 07/24/22 12:45 GFR Calculation 83.2 mL/min (90-130) L 07/24/22 12:45 Glucose 102 mg/dL (65-115) 07/24/22 12:45 Calculated Osmolality 290 mOsm/kg (285-295) 07/24/22 12:45 Uric Acid 6.7 mg/dL (3.4-7.0) 07/24/22 12:45 Calcium 9.4 mg/dL (8.5-10.5) 07/24/22 12:45 Total Bilirubin 0.3 mg/dL (0.15-1.2) 07/24/22 12:45 AST 25 U/L (0-40) 07/24/22 12:45 ALT 39 U/L (0-41) 07/24/22 12:45 Alkaline Phosphatase 75 U/L (40-130) 07/24/22 12:45 Total Protein 7.7 g/dL (6.6-8.7) 07/24/22 12:45 Albumin 4.8 g/dL (3.5-5.2) 07/24/22 12:45 Globulin 2.9 g/dL (1.3-4.6) 07/24/22 12:45 Discharge Plan Discharge Patient Disposition: Home Clinical Impression: Ankle pain Qualifiers: Chronicity: unspecified Laterality: left Qualified Code(s): M25.572 - Pain in left ankle and joints of left foot Condition: Stable Prescriptions: New prednisone 20 mg tablet 40 mg PO DAILY 5 Days Qty: 10 0RF No Action hydrocodone-acetaminophen 7.5-325 mg tablet 1 tab PO Q6H PRN (Reason: pain) Qty: 20 0RF Discharge Orders: Discharge ED (Routine); Ordered 07/24/22 Ordered By: Kristan Pereyra Referrals: Shyann Corrales FNP [Primary Care Provider] - Patient Instructions: Swollen Joint (ED) Activity Restrictions/Additional Instructions: Take steroids as directed with food. Wait 6 to 8 hours before taking any more NSAIDs today as you received a Toradol injection in ER. Make sure that you are staying well-hydrated with water. I recommend conservative treatment including ice, rest, elevation. Ryan wrap the ankle. Use crutches for the next 5 to 7 days to allow the ankle to rest. follow-up with orthopedics (referral was sent today). Follow-up with primary care provider for continued evaluation and monitoring. Return to the ER as needed for new or worsening symptoms Coding Level of Care Code ED Supervisor [facility] System for Nicholas Manriquez
[2022-07-24 13:22] LABS: Alanine Aminotransferase 39 U/L (0-41); Albumin Level 4.8 g/dL (3.5-5.2); Alkaline Phosphatase 75 U/L (40-130); Anion Gap 19.6 (5-19); Aspartate Amino Transferase 25 U/L (0-40); Blood Urea Nitrogen 12 mg/dL (6-20); Calcium 9.4 mg/dL (8.5-10.5); Carbon Dioxide 24 mmol/L (22-29); Chloride 100 mmol/L (98-107); Globulin 2.9 g/dL (1.3-4.6); Glomerular Filtration Rate 83.2 mL/min (90-130); Glucose 102 mg/dL (65-115); Osmolality Calculated 290 mOsm/kg (285-295); Potassium 3.6 mmol/L (3.5-5.1); Sodium 140 mmol/L (136-145); Total Bilirubin 0.3 mg/dL (0.15-1.2); Total Protein 7.7 g/dL (6.6-8.7); Uric Acid 6.7 mg/dL (3.4-7.0)
[2022-07-24] MEDS: ketorolac 30 mg/mL INJ IM (14:07)
[2022-07-24 14:16] VITALS: PULSE 84; RESP 20; O2SAT 97
--- NOTE | 2022-07-25 08:39 | DCPLANNER ---
Addendum entered by Jacklyn Bustillos 07/26/22 14:22: Patient had a follow up appointment scheduled with podiatry - patient did attend appointment. Original Note: manager case had message to schedule a follow up appointment for patient with ortho. manager case sent patients information to the front office staff at ortho. Patients information will be printed and reviewed. Clinic will call patient with appointment information.
== END 2022-07-24 14:17 | disposition home or self-care (01) ==
PROVIDERS: Emergency Provider Nurse Practitioner Family; PCP Nurse Practitioner
DX: M25.572 Pain in left ankle and joints of left foot (principal); E78.5 Hyperlipidemia, unspecified
CPT/HCPCS: 36415; 73600; 80053; 84550; 85025; 96372; 99284; J1885

== ENCOUNTER → 2022-07-25 12:19 | Outpatient (BNVA) | payer OTHER, SELFPAY | PROVIDERS: PCP Nurse Practitioner; Referring Provider Nurse Practitioner Family; Visit Provider Podiatrist Foot & Ankle Surgery | DX: M25.579 Pain in unspecified ankle and joints of unspecified foot (principal); M77.52 Other enthesopathy of left foot and ankle; M25.472 Effusion, left ankle; M10.9 Gout, unspecified; F43.10 Post-traumatic stress disorder, unspecified | CPT/HCPCS: 36415; 85651; 86140; 86200; 86225; 86235; 86431; 99204 ==

== ENCOUNTER 2022-09-03 14:07 | Outpatient (CLI) | payer OTHER, SELFPAY ==
--- NOTE | 2022-09-03 14:18 | CTR_ITS ---
PROCEDURE INFORMATION: Exam: CT Abdomen And Pelvis With Contrast Exam date and time: 09/03/2022 3:20 PM Age: 37 years old Clinical indication: Abnormal findings; Abnormal radiologic finding of the abdomen; Radiologic exam and body structure: US renal; Prior surgery; Surgery type: Hernia; Additional info: [address] TECHNIQUE: Imaging protocol: Computed tomography of the abdomen and pelvis with contrast. Axial, coronal and sagittal reformatted images were created and reviewed. Radiation optimization: All CT scans at this facility use at least one of these dose optimization techniques: automated exposure control; mA and/or kV adjustment per patient size (includes targeted exams where dose is matched to clinical indication); or iterative reconstruction. Contrast material: OMNI 350; Contrast volume: 95 ml; Contrast route: INTRAVENOUS (IV); REPORTING DATA: Count of CT and Cardiac NM exams in prior 12 months: This patient has received [address] and 0 known cardiac nuclear medicine studies in the 12 months prior to the current study. COMPARISON: CT abdomen pelvis w con* [id number] 12/27/2021 1:56 AM RADIATION DOSE METRICS: Total DLP (mGy-cm): 617.27 FINDINGS: Liver: Mild hepatomegaly. Mild, diffuse hepatic steatosis. Gallbladder and bile ducts: No radiodense gallstones. No biliary ductal dilatation. Pancreas: Unremarkable. Spleen: Unremarkable. Adrenal glands: Normal. No mass. Kidneys and ureters: Bilateral renal cysts, measuring up to 2.9 cm on the left, similar to prior (no follow-up is indicated based on the imaging appearance). 1 cm partially exophytic isodense left renal lesion, similar to prior. No radiodense calculi. No hydronephrosis. Stomach and bowel: No bowel wall thickening. No obstruction. No pneumatosis. Appendix: Normal. Intraperitoneal space: No free fluid. No organized fluid collection. No free air. Vasculature: Unremarkable. No aneurysm. Lymph nodes: No pathologically enlarged lymph nodes. Urinary bladder: Unremarkable as visualized. Reproductive: Unremarkable. Bones/joints: No acute osseous abnormality. Mild degenerative changes. Soft tissues: Evidence of prior left inguinal herniorrhaphy. CT/CT abdomen pelvis w con* [id number] IMPRESSION: 1. 1 cm partially exophytic isodense left renal lesion, similar to prior. While this may represent a complex cyst, follow-up MRI is recommended to exclude a solid mass. 2. Additional findings, as above.
[2022-09-03] MEDS: iohexol 350 mg/mL 500 mL Btl (per mL) IV (15:26)
== END 2022-09-03 14:08 | disposition home or self-care (01) ==
PROVIDERS: PCP Nurse Practitioner; Visit Provider Family Medicine
DX: N28.9 Disorder of kidney and ureter, unspecified (principal)
CPT/HCPCS: 74177; Q9967

== ENCOUNTER 2022-09-04 06:00 | Outpatient (CLI) | payer OTHER, SELFPAY | END 2022-09-04 06:01 | disposition home or self-care (01) | LOC: SPT 09-05 10:22 | PROVIDERS: PCP Nurse Practitioner; Visit Provider Podiatrist Foot & Ankle Surgery | DX: Z46.89 Encounter for fitting and adjustment of other specified devices (principal); M25.572 Pain in left ankle and joints of left foot; M77.52 Other enthesopathy of left foot and ankle; M10.9 Gout, unspecified; F43.10 Post-traumatic stress disorder, unspecified | CPT/HCPCS: 97760; 99214; L1902 ==

== ENCOUNTER → 2022-09-17 13:01 | Outpatient (BNVA) | payer OTHER, SELFPAY | PROVIDERS: PCP Nurse Practitioner; Visit Provider Podiatrist Foot & Ankle Surgery | DX: M77.52 Other enthesopathy of left foot and ankle (principal); M10.9 Gout, unspecified | CPT/HCPCS: 20550; 36415; 84550; J1100; J3301 ==

== ENCOUNTER → 2022-10-09 13:24 | Outpatient (BNVA) | payer OTHER, SELFPAY | PROVIDERS: PCP Nurse Practitioner; Visit Provider Podiatrist Foot & Ankle Surgery | DX: M25.572 Pain in left ankle and joints of left foot (principal); M77.52 Other enthesopathy of left foot and ankle | CPT/HCPCS: 36415; 86003; 86008; 99213 ==

== ENCOUNTER 2022-10-18 08:15 | Day surgery (SDC) | payer OTHER, SELFPAY ==
[2022-10-17 13:51] VITALS: BMI 29.1
[2022-10-18 08:14] VITALS: BP 141/99; PULSE 78; RESP 16; TEMP 36.5; O2SAT 97
[2022-10-18] MEDS: gabapentin 300 mg Capsule PO (08:39)
[2022-10-18] MEDS: sodium chloride 0.9% 1,000 ML 30 ML IV (08:39)
[2022-10-18] MEDS: acetaminophen 1,000 MG/100 ML PIGGYBACK 400 MG IV (08:39)
--- NOTE | 2022-10-18 09:19 | W.PM.OPSUD ---
Surgery/Procedure H&P Update DATE OF PROCEDURE: October 18, 2022 DATE H&P PERFORMED: 10/09/22 CHANGES TO PREVIOUS DOCUMENTATION: No changes PLANNED PROCEDURE: Operation Date: 10/18/22 09:25 Proposed Procedures p ?Left ankle joint arthroscopy CPT 87852 and Left ankle joint arthrocentesis CPT 18034,M10.072, M89.8X7(Left) - Bakari Mireles DPM s Arthrocentesis(Left) - Bakari Mireles DPM
--- NOTE | 2022-10-18 10:20 | ANES.PREANE2 ---
Pre-Anesthetic Assessment Height/Weight: Height 1.83 m Weight 97.522 kg Temp Pulse Resp BP Pulse Ox O2 Del Method 97.7 F 78 16 141/99 97 Room Air 10/18/22 08:14 10/18/22 08:14 10/18/22 08:14 10/18/22 08:14 10/18/22 08:14 10/18/22 08:14 Operation Date: 10/18/22 09:25 Proposed Procedures p ?Left ankle joint arthroscopy CPT 70930 and Left ankle joint arthrocentesis CPT 66242,M10.072, M89.8X7(Left) - Bakari Mireles DPM s Arthrocentesis(Left) - Bakari Mireles DPM Familial anesthetic complications: none Was Beta Debra taken within 24 hours: N/A Was Clonidine taken within 24 hours: N/A Last intake: Intake Last Liquid Date 10/17/22 Last Liquid Time 23:59 Last Solid Date 10/17/22 Last Solid Time 20:00 Social No alcohol and No tobacco Exam alert, oriented x 3, clear to auscultation bilaterally and regular rate & rhythm Airway Submandibular: within normal limits Cervical ROM: within normal limits Mallampati: Class II Dentition: full Musc/skel Gout Neuropsych PTSD Anesthetic Plan ASA status: 2 Anesthesia: General and Regional (specify below) (left pop blk) Medications/Allergies Home Medications Medication Instructions Recorded Confirmed Last Taken Type ASO brace #1 ea 09/04/22 10/17/22 Unknown Rx allopurinol 200 mg tablet 200 mg PO DAILY 10/17/22 10/17/22 10/17/22 History hydrocodone 5 mg-acetaminophen 325 1 tab PO Q6H PRN pain #24 tabs 10/18/22 Unknown Rx mg tablet Allergies Allergy/AdvReac Type Severity Reaction Status Date / Time No Known Allergies Allergy Verified 10/17/22 13:48 Current Medications Generic Name Dose Route Start Last Admin Trade Name Freq PRN Reason Stop Dose Admin Sodium Chloride 1,000 mls @ 30 mls/hr 10/18/22 08:15 10/18/22 08:39 Sodium Chloride 0.9% IV 10/19/22 08:14 30 mls/hr .Q24H MAILE Administration PFSH Anesthesia Medical History Actinic keratoses Chronic diarrhea Gout Hyperlipemia No significant past medical history Personal history of traumatic brain injury PTSD (post-traumatic stress disorder) Sleep apnea Surgical History History of left inguinal hernia repair 03/29/22 History of left knee surgery No significant past surgical history Social History Smoking and tobacco status: never smoked Data Anesthesia Cardiac Studies: No Data to Display
--- NOTE | 2022-10-18 11:17 | SUR.PREOP ---
10:30 DOCTOR CLIFF AT BEDSIDE TO EXPLAIN TO PATIENT THE NEED TO CANCEL SURGERY DUE TO EQUIPMENT PROBLEMS. SURGERY TO BE SCHEDULED FOR TOMORROW.
== END 2022-10-18 10:15 | disposition home or self-care (01) ==
PROVIDERS: PCP Nurse Practitioner; Visit Provider Podiatrist Foot & Ankle Surgery
DX: M10.072 Idiopathic gout, left ankle and foot (principal); M77.52 Other enthesopathy of left foot and ankle; Z53.8 Procedure and treatment not carried out for other reasons
CPT/HCPCS: J0131; J2704; J2795; J7030

== ENCOUNTER 2022-10-19 11:57 | Day surgery (SDC) | payer OTHER, SELFPAY ==
[2022-10-19] VITALS (11 sets, daily range): BP systolic 123–166; BP diastolic 84–104; PULSE 83–95; RESP 16–18; TEMP 36.1–36.4; O2SAT 90–97
[2022-10-19] MEDS: acetaminophen 1,000 MG/100 ML PIGGYBACK 400 MG IV (12:38)
[2022-10-19] MEDS: gabapentin 300 mg Capsule PO (12:38)
--- NOTE | 2022-10-19 12:40 | W.PM.OPSUD ---
Surgery/Procedure H&P Update DATE OF PROCEDURE: October 19, 2022 DATE H&P PERFORMED: 10/09/22 CHANGES TO PREVIOUS DOCUMENTATION: No changes PLANNED PROCEDURE: Operation Date: 10/19/22 13:35 Proposed Procedures p Left ankle joint arthroscopy CPT 26798 and Left ankle joint arthrocentesis CPT 70226,M10.072, M89.8X7(Left) - Bakari Mireles DPM s Arthrocentesis(Left) - Bakari Mireles DPM
[2022-10-19] MEDS: sodium chloride 0.9% 1,000 ML 30 ML IV (12:41)
[2022-10-19] MEDS: ceFAZolin 2,000 MG in sodium chloride 0.9% (plus) 50 ML 100 MG IV (13:07)
--- NOTE | 2022-10-19 14:28 | ANES.PAUD2 ---
Pre-Anesthetic Update Pre-Anesthetic Assessment: Date of Surgery/Procedure: 10/19/22 Proposed Procedure: Operation Date: 10/19/22 13:35 Proposed Procedures p Left ankle joint arthroscopy CPT 85718 and Left ankle joint arthrocentesis CPT 15681,M10.072, M89.8X7(Left) - Bakari Mireles DPM s Arthrocentesis(Left) - Bakari Mireles DPM Any changes to Pre-Anesthetic Assessment?: No Last Intake: Intake Last Liquid Date 10/18/22 Last Liquid Time 23:55 Last Solid Date 10/18/22 Last Solid Time 23:55 Vitals: Temperature 97 F L 10/19/22 12:08 Temperature Source Temporal Artery S can 10/19/22 12:08 Pulse Rate 95 10/19/22 12:08 Respiratory Rate 16 10/19/22 12:08 Blood Pressure 150/100 10/19/22 12:08 Blood Pressure Jesica n 116 10/19/22 12:08 Pulse Oximetry 95 10/19/22 12:08 Oxygen Delivery Me thod Room Air 10/19/22 12:45 Exam: Pre-Anes Outpt Exam: alert, oriented x 3, clear to auscultation bilaterally and regular rate & rhythm Cardiac Studies: No Data to Display Anesthesia Procedures Nerve Block: Nerve Block 1: Main Anesthesia: general anesthesia Time Out Performed: Yes Consent: requested by attending/covering physician, from patient, risks and benefits reviewed and patient agrees to proceed Nerve block location: popliteal (left) Anesthesia monitors applied: pulse oximetry, EKG, BP cuff and oxygen Nerve block position: supine Anesthetic Used: ropivicaine 0.5% Amount of anesthesia used (mL): 30 Ultrasound used to: recognize landmarks Nerve Stimulator Used?: No Interscalene/Femoral BLK: 4 stimuplex 21 g needle used for position and inplane approach Injection: neg aspiration of heme Patient Tolerated Procedure: well Complications: none
--- NOTE | 2022-10-19 14:57 | ANE.PACU2 ---
Inpatient post-anesthesia follow up: Airway intact: Yes Vital signs: Temperature 97.6 F Pulse Rate 91 Respiratory Rate 17 Blood Pressure 150/102 Pulse Oximetry 92 Oxygen Delivery Me thod Nasal Cannula Oxygen Flow Rate 3 Fraction of Inspir ed Oxygen Hydration adequate: Yes Nausea and vomiting: No Pain level: 1 Mental status: Baseline
[2022-10-19 16:06] LABS: Crystals, Fluid See Path Consult
[2022-10-19 16:38] LABS: RBC Synovial Fluid 155 10^3/uL (0-0); Synovial Fluid Mononuclear # 0.416 10^3/uL; WBC Synovial Fluid 2826 /uL (0-150)
[2022-10-19 17:21] LABS: Color Synovial Fluid RED (PALE YELLOW)
[2022-10-19 17:22] LABS: Appearance Synovial Fluid CLOUDY (CLEAR); PATH Referal YES
--- NOTE | 2022-10-19 17:30 | P.OP_ITS ---
Operative Report Date of procedure: October 19, 2022 Pre-op diagnosis: 1. Left ankle capsulitis 2. Idiopathic gout left ankle Post-op diagnosis: Same Post-op findings: Extensive hemorrhagic synovitis left ankle with capsulitis. No intra-articular bodies or evidence of cartilage defect Procedure done: 1. Left ankle arthroscopy CPT 89891 2. Left ankle arthrocentesis CPT 93197 Specimens removed/disposition: 1. Arthrocentesis fluid sent to pathology for crystal analysis 2. Ankle joint capsule biopsy sent to pathology for surgical specimen Surgeon: Dr. Bakari Mireles, D.P.M. Estimated blood loss: Less than 10 cc Complications: None Findings: See above Procedure: Patient is a 37-year-old male that has a history of chronic left ankle pain that waxes and wanes. The patient has had the aforementioned chief complaint for some time. Conservative treatment measures have been attempted and the patient has opted for surgical intervention at this time. A lengthy discussion regarding the procedure, including risks and complications has been had with the patient and is noted in the recent clinic note. Written and verbal consent have been obtained. All patient questions have been answered to the patient?s satisfaction. No written or verbal guarantees have been given or implied. The patient has been NPO since midnight. The history has been reviewed and the history and physical is current. The signed consent was confirmed and placed in the patient chart. Patient imaging has been reviewed and is consistent with the diagnosis. Under mild sedation, the patient was brought into the operating room and placed on the table in the supine position. IV antibiotics were given by the anesthesia team as preoperative surgical prophylaxis. General sedation was then performed by the anesthesiateam. A pneumatic tourniquet was then placed about the left thigh. A popliteal block was performed by the anesthesia department. The operative extremity was then prepped and draped in the usual fashion. The extremity was then elevated and exsanguinated before the tourniquet was inflated to 325 mmHg. After inflation, the following procedure was then performed. Attention was directed to the anterior ankle where an 18-gauge needle was inserted into the anteromedial portal just medial to the tibialis anterior tendon. Arthrocentesis was performed. 4 cc of fluid was taken off of the ankle and sent to pathology for fluid analysis and crystal analysis. The synovial fluid was noted to be hemorrhagic with debris. A #11 blade was then used to make an anteromedial portal at this area. Mosquito hemostat was used to bluntly dissect down to the level of the ankle joint capsule which was pierced. Trocar cannula was then inserted into the ankle joint. The anterolateral portal was then established using a #11 blade in standard fashion. There was noted to be a significant amount of hemorrhagic synovitis within the left ankle joint. No cartilage defects were appreciated. Ankle joint capsule showed diffuse inflammation. Using an arthroscopic shaver. The hemorrhagic synovitis and inflammation was debrided. After clearing the left ankle joint of synovitis, a grasper was used to biopsy the ankle joint capsule. 3 specimens were taken from the ankle joint capsule and sent to pathology for evaluation. After biopsies were taken the ankle joint was further inspected. Again, no cartilage defects were visualized. The arthroscope and cannula were removed from the foot as well as the shaver. The incision sites were then closed with 4-0 nylon in horizontal mattress fashion before being dressed with Xeroform, 4 x 4 gauze, Kerlix. The t ourniquet was let down and good hyperemic response was noted to all digits of the left foot. The patient was then placed in a cam boot. The patient tolerated the procedure and anesthesia well and without complication. The patient was transported from the operating room to the recovery room with vital signs stable and vascular status intact to all digits of the left foot. The patient was given both written and verbal instructions to remain nonweightbearing to the operative extremity, to keep dressings/splint clean, dry and intact and to take pain medication as directed. The patient will follow-up in the outpatient setting at their scheduled appointment. The patient was discharged with my personal number and was instructed to call if any questions or issues should arise. They were discharged home once anesthesia criteria was met.
[2022-10-19 17:32] LABS: Cyto Order Verification Order Verified
== END 2022-10-19 15:55 | disposition home or self-care (01) ==
PROVIDERS: PCP Nurse Practitioner; Visit Provider Podiatrist Foot & Ankle Surgery
PROC: (CPT 20605; principal; 2022-10-19 13:15)
PROC: (CPT 20605; 2022-10-19 13:15)
DX: M10.072 Idiopathic gout, left ankle and foot (principal); M77.52 Other enthesopathy of left foot and ankle
CPT/HCPCS: 20605; 29898; 80503; 88112; 88305; 89050; J0131; J0690; J1100; J2405; J2704; J3010; J3490; J7030

== ENCOUNTER → 2022-11-01 13:43 | Outpatient (BNVA) | payer OTHER, SELFPAY | PROVIDERS: PCP Nurse Practitioner; Visit Provider Podiatrist Foot & Ankle Surgery | DX: Z98.890 Other specified postprocedural states (principal) | CPT/HCPCS: 99024 ==

== ENCOUNTER → 2023-01-30 10:27 | Outpatient (BNVA) | payer OTHER, SELFPAY | PROVIDERS: PCP Nurse Practitioner; Visit Provider Internal Medicine Rheumatology | DX: Z79.899 Other long term (current) drug therapy (principal); Z11.1 Encounter for screening for respiratory tuberculosis; Z11.59 Encounter for screening for other viral diseases; M45.6 Ankylosing spondylitis lumbar region; M13.10 Monoarthritis, not elsewhere classified, unspecified site; M77.52 Other enthesopathy of left foot and ankle; Z71.85 Encounter for immunization safety counseling | CPT/HCPCS: 36415; 80076; 82565; 83520; 85025; 86480; 86704; 86803; 86812; 87340; 99204 ==

== ENCOUNTER 2023-04-12 15:01 | Outpatient (CLI) | payer OTHER, SELFPAY ==
[2023-04-12 15:34] LABS: Basophils % 0.7 %; Eosinophils # 0.1 10^3/uL (0.0-0.8); Hematocrit 40.8 % (37-53); Lymphocytes # 2.3 10^3/uL (0.8-4.8); Mean Corpuscular HGB Conc 35.5 g/dL (30-55); Mean Corpuscular Hemoglobin 31.9 pg (27-33); Mean Corpuscular Volume 89.7 fl (82-101); Mean Platelet Volume 10.6 fL (7.4-10.4); Monocytes # 0.5 10^3/uL (0.2-0.9); Monocytes % 8.7 %; Neutrophils # 2.71 10^3/uL (1.8-7.7); Neutrophils % 48.2 %; Nucleated Red Blood Cells % 0 %; Platelet Count 174 10^3/cmm (157-399); Red Blood Count 4.55 10^6/uL (3.85-5.65); Red Cell Distribution Width 12.9 % (12.1-15.1); White Blood Count 5.62 10^3/uL (3.29-11.43)
[2023-04-12 15:55] LABS: Alanine Aminotransferase 38 U/L (0-41); Albumin Level 4.8 g/dL (3.5-5.2); Alkaline Phosphatase 60 U/L (40-130); Aspartate Amino Transferase 27 U/L (0-40); Globulin 2.3 g/dL (1.3-4.6); Glomerular Filtration Rate 74.1 mL/min (90-130); Total Bilirubin 0.6 mg/dL (0.15-1.2); Total Protein 7.1 g/dL (6.6-8.7)
== END 2023-04-12 15:02 | disposition home or self-care (01) ==
PROVIDERS: PCP Nurse Practitioner; Visit Provider Internal Medicine Rheumatology
DX: M19.90 Unspecified osteoarthritis, unspecified site (principal); Z79.899 Other long term (current) drug therapy
CPT/HCPCS: 36415; 80076; 82565; 85025; 86140

== ENCOUNTER → 2023-04-18 09:16 | Outpatient (BNVA) | payer OTHER, SELFPAY | PROVIDERS: PCP Nurse Practitioner; Visit Provider Internal Medicine Rheumatology | DX: Z79.899 Other long term (current) drug therapy (principal); M13.10 Monoarthritis, not elsewhere classified, unspecified site; M77.52 Other enthesopathy of left foot and ankle; Z71.85 Encounter for immunization safety counseling | CPT/HCPCS: 99214 ==

== ENCOUNTER 2023-07-27 11:33 | Emergency (ER) | payer OTHER, SELFPAY ==
[2023-07-27 11:59] VITALS: BP 148/87; PULSE 88; RESP 18; TEMP 36.8; O2SAT 97
--- NOTE | 2023-07-27 12:10 | XRR_ITS ---
PROCEDURE INFORMATION: Exam: XR Right Ankle Exam date and time: 07/27/2023 12:23 PM Age: 38 years old Clinical indication: Pain; Ankle; Right TECHNIQUE: Imaging protocol: Radiologic exam of the right ankle. Views: 3 or more views. COMPARISON: No relevant prior studies available. FINDINGS: Bones/joints: Normal. Soft tissues: Normal. XR/XR ankle RT min 3V* [id number] IMPRESSION: No acute findings.
--- NOTE | 2023-07-27 12:41 | PC.PHAR ---
PT IS [facility] BUT ABLE TO VERIFY HOME MEDICATIONS. 07/27/23
--- NOTE | 2023-07-27 13:42 | ED_ITS ---
HPI - Extremity Problem General: Chief complaint: Extremity Problem,Nontraumatic Stated complaint: Right Ankle pain Time Seen by Provider: 07/27/23 11:41 Source: patient Mode of arrival: ambulatory History of Present Illness: 38-year-old male patient complaining of right ankle pain no trauma he has had issues before with significant swelling most of his pain localizes to the lateral portion of the right ankle moderate swelling several years ago it is similar episode had arthroscope done of the left ankle he did not really find anything he had a cortisone shot and it seemed to get better. He is taken several [id number] medications and prednisone with no significant relief Complaint: joint pain Onset (ago): day(s) (3-4) Pain Consistency: constant Location: right (Ankle) Relieving factors: nothing Exacerbating factors: nothing Associated symptoms: Reports arthralgias; Deny chest pain, fever(s), myalgias, rash or short of breath Review of Systems Const: Denies: fever(s) or chills Card: Denies: chest pain Resp: Denies: dyspnea Musc: Denies: neck pain or back pain Skin/Breast: Denies: rash PFSH ED PFSH: Medical History (Updated 07/27/23 @ 13:58 by Al Morales DO) Immunization counseling High risk medication use 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 Actinic keratoses Gout Hyperlipemia Personal history of traumatic brain injury Sleep apnea PTSD (post-traumatic stress disorder) Chronic diarrhea No significant past medical history Surgical History (Updated 01/30/23 @ 13:08 by Chaim Parish MD) History of foot surgery History of left inguinal hernia repair 03/29/22 History of left knee surgery No significant past surgical history Family History (Updated 01/30/23 @ 11:43 by Camila Lucero LPN) Denies family history of Rheumatoid arthritis Diabetes Lupus CAD (coronary artery disease) Chronic kidney disease (CKD) Lung disease Cancer Hypertension Stroke Social History (Updated 01/30/23 @ 11:25 by Camila Lucero LPN) Smoking and tobacco/nicotine status: never used tobacco/nicotine Alcohol intake: current Alcohol intake frequency: holidays/special occasions only Physical Exam Const: GENERAL APPEARANCE: cooperative and comfortable ORIENTATION/CONSCIOUSNESS: Yes awake, Yes oriented to person, Yes oriented to place and Yes oriented to time HENMT: COMMON NORMALS: normocephalic, atraumatic and hearing grossly normal bilaterally HEAD & SCALP: normocephalic and atraumatic Extremity: COMMON NORMALS: normal to inspection, capillary refill normal, no clubbing, cyanosis or edema, no calf tenderness and no pedal edema OTHER: No obvious deformity swelling erythema of the right ankle Neuro: SENSORIUM/ORIENTATION: Yes oriented to person, Yes oriented to place and Yes oriented to time Skin: COMMON NORMALS: no rashes or lesions noted GENERAL SKIN EXAM: no rashes or lesions noted Course Vital Signs: Vital signs: Vital Signs Temperature 98.3 F 07/27/23 14:08 Pulse Rate 88 07/27/23 14:08 Respiratory Rate 18 07/27/23 14:08 Blood Pressure 148/87 07/27/23 14:08 Pulse Oximetry 97 07/27/23 14:08 Oxygen Delivery Me thod Room Air 07/27/23 11:59 MDM - Extremity (Nontraumatic) Medical Decision Making Labs were ordered patient wished to leave he had an appointment and to get to evidently his had to drive him drive to [place] for a specified appointment. Encouraged him to follow-up with podiatry for further evaluation of chronic recurrent ankle pain no acute or emergent findings at this time on the x-ray or history. Patient declined lab work Medical Records I reviewed the patient's medical records. Lab Data I reviewed the patient's lab results. Radiology Impressions Ankle X-Ray 07/27/23 12:10 IMPRESSION: No acute findings. All radiology interpretation(s) finalized by discharge Discharge Plan Discharge Patient Disposition: Home Clinical Impression: Right ankle pain Condition: Stable Prescriptions: New prednisone 20 mg tablet 20 mg PO TID Qty: 15 0RF Rx Instructions: 1 p.o. 3 times daily x3 days, 1 p.o. twice daily x2 days, 1 p.o. daily x2 days No Action (DME) ASO brace See Rx Instructions .Route .MEDSUPPLY Qty: 1 0RF Rx Instructions: As directed methotrexate sodium 2.5 mg tablet See Rx Instructions PO .week Qty: 150 0RF Rx Instructions: Split dose.. take 10 tabs on the same day once a week, take 5 tabs in the AM and 5 tabs in the PM prednisone 20 mg tablet See Rx Instructions PO .COMPLEX PRN (Reason: joint pain flare) Qty: 30 1RF Rx Instructions: take 1 or 2 tab daily for 3-7 days as needed for arthritis flare PO PRN; folic acid 1 mg tablet 1 mg PO DAILY Qty: 90 3RF ibuprofen 800 mg tablet 800 mg PO TID PRN (Reason: Pain, Mild) hydrocodone-acetaminophen 5-325 mg tablet 1 tab PO Q6H PRN (Reason: Pain) Benadryl 25 mg Capsule 50 mg PO TID PRN (Reason: UNKNOWN) Discharge Orders: Discharge ED (Routine); Ordered 07/27/23 Ordered By: Al Morales Referrals: Shyann Corrales FNP [Primary Care Provider] - Discharge Diet: Usual diet Discharge Activity: Increase activity as tolerated Patient Instructions: Opioid Safety, Pain Management Activity Restrictions/Additional Instructions: Thank you for choosing [facility] for your healthcare needs today. Please realize this is an emergency room and that we are providing you with a medical screening exam and this may not be complete and all inclusive of all the testing and or work up that you may need to determine your ailment or severity of your illness. It is very important that you follow up as instructed or that you return to the Emergency Department should you have concerns or if your condition changes or worsens in any way. You are seen today for right ankle pain your x-ray did not show any acute fractures. Given your history a course of prednisone can be helpful and you are given a prescription for that you can take ibuprofen with it as well. I would recommend that you follow-up with podiatry as soon as you are able for further evaluation Coding Level of Care Code ED Bed Manager for Nicholas Manriquez
[2023-07-27 14:08] VITALS: BP 148/87; PULSE 88; RESP 18; TEMP 36.8; O2SAT 97
== END 2023-07-27 14:09 | disposition home or self-care (01) ==
PROVIDERS: Emergency Provider Family Medicine; PCP Nurse Practitioner
DX: M25.571 Pain in right ankle and joints of right foot (principal); E78.5 Hyperlipidemia, unspecified
CPT/HCPCS: 73610; 99283

== ENCOUNTER → 2023-07-29 14:55 | Outpatient (BNVA) | payer OTHER, SELFPAY | PROVIDERS: PCP Nurse Practitioner; Visit Provider Internal Medicine Rheumatology | DX: M25.571 Pain in right ankle and joints of right foot (principal); Z79.899 Other long term (current) drug therapy; M13.10 Monoarthritis, not elsewhere classified, unspecified site; M10.9 Gout, unspecified | CPT/HCPCS: 20605; 36415; 80076; 82565; 85025; 86140; 99214; J1030 ==

== ENCOUNTER 2023-10-30 15:09 | Outpatient (CLI) | payer OTHER, SELFPAY ==
--- NOTE | 2023-10-30 15:15 | USR_ITS ---
PROCEDURE INFORMATION: Exam: US Soft Tissue Head and Neck, Thyroid Exam date and time: 10/30/2023 3:20 PM Age: 38 years old Clinical indication: Other: Enlarged thyroid TECHNIQUE: Imaging protocol: Real-time ultrasound scan of the neck with image documentation. Exam focused on the thyroid. COMPARISON: No relevant prior studies available. FINDINGS: Right thyroid lobe: Right thyroid lobe measures 1.2 cm x 1.3 cm x 3.8 cm. Normal and homogeneous parenchyma to the right thyroid lobe without focal lesions. Left thyroid lobe: Left thyroid lobe measures 1.4 cm x 1.1 cm x 3 cm. Normal and homogeneous parenchyma to the left thyroid lobe without focal lesions. Isthmus: Thyroid isthmus measures 0.2 cm. No nodules. US/US thyroid [id number] IMPRESSION: Normal thyroid by ultrasound without nodules.
== END 2023-10-30 15:10 | disposition home or self-care (01) ==
LOC: RAD 15:09
PROVIDERS: PCP Nurse Practitioner; Visit Provider Nurse Practitioner
DX: E04.9 Nontoxic goiter, unspecified (principal)
CPT/HCPCS: 76536

== ENCOUNTER 2023-11-29 13:16 | Outpatient (CLI) | payer OTHER, SELFPAY ==
[2023-11-29 13:40] LABS: Erythrocyte Sedimentation Rate < 1 mm/hr (0-10)
[2023-11-29 13:42] LABS: Basophils % 0.5 %; Eosinophils # 0.1 10^3/uL (0.0-0.8); Eosinophils % 1.1 %; Hematocrit 44.5 % (37-53); Lymphocytes # 1.6 10^3/uL (0.8-4.8); Lymphocytes % 29.2 %; Mean Corpuscular HGB Conc 35.1 g/dL (30-55); Mean Corpuscular Hemoglobin 32.5 pg (27-33); Mean Corpuscular Volume 92.7 fl (82-101); Mean Platelet Volume 10.4 fL (7.4-10.4); Monocytes # 0.4 10^3/uL (0.2-0.9); Monocytes % 7.5 %; Neutrophils # 3.45 10^3/uL (1.8-7.7); Neutrophils % 61.5 %; Nucleated Red Blood Cells % 0 %; Platelet Count 142 10^3/cmm (157-399); Red Cell Distribution Width 12.8 % (12.1-15.1); White Blood Count 5.61 10^3/uL (3.29-11.43)
[2023-11-29 14:04] LABS: Alanine Aminotransferase 28 U/L (0-41); Albumin Level 4.7 g/dL (3.5-5.2); Alkaline Phosphatase 85 U/L (40-130); Aspartate Amino Transferase 25 U/L (0-40); Globulin 2.7 g/dL (1.3-4.6); Glomerular Filtration Rate 67.1 mL/min (90-130); Total Bilirubin 0.6 mg/dL (0.15-1.2); Total Protein 7.4 g/dL (6.6-8.7)
== END 2023-11-29 13:17 | disposition home or self-care (01) ==
LOC: LAB 13:17
PROVIDERS: PCP Nurse Practitioner; Visit Provider Internal Medicine Rheumatology
DX: Z79.899 Other long term (current) drug therapy (principal); M13.10 Monoarthritis, not elsewhere classified, unspecified site
CPT/HCPCS: 36415; 80076; 82565; 85025; 85651; 86140

== ENCOUNTER → 2023-12-09 12:46 | Outpatient (BNVA) | payer OTHER, SELFPAY | PROVIDERS: PCP Nurse Practitioner; Visit Provider Internal Medicine Rheumatology | DX: M13.10 Monoarthritis, not elsewhere classified, unspecified site (principal); M77.52 Other enthesopathy of left foot and ankle; Z79.899 Other long term (current) drug therapy; Z71.85 Encounter for immunization safety counseling; Z11.1 Encounter for screening for respiratory tuberculosis; Z11.59 Encounter for screening for other viral diseases | CPT/HCPCS: 99214 ==

== ENCOUNTER 2024-03-19 12:45 | Outpatient (CLI) | payer OTHER, SELFPAY ==
[2024-03-19 13:16] LABS: Basophils % 0.6 %; Eosinophils # 0.1 10^3/uL (0.0-0.8); Eosinophils % 1.5 %; Hematocrit 43.1 % (37-53); Lymphocytes # 1.8 10^3/uL (0.8-4.8); Lymphocytes % 34.4 %; Mean Corpuscular HGB Conc 34.6 g/dL (30-55); Mean Corpuscular Hemoglobin 31.9 pg (27-33); Mean Corpuscular Volume 92.3 fl (82-101); Mean Platelet Volume 11.2 fL (7.4-10.4); Monocytes # 0.5 10^3/uL (0.2-0.9); Monocytes % 9.9 %; Neutrophils # 2.78 10^3/uL (1.8-7.7); Neutrophils % 53.2 %; Nucleated Red Blood Cells % 0 %; Platelet Count 150 10^3/cmm (157-399); Red Blood Count 4.67 10^6/uL (3.85-5.65); Red Cell Distribution Width 12.5 % (12.1-15.1); White Blood Count 5.23 10^3/uL (3.29-11.43)
[2024-03-19 13:17] LABS: Erythrocyte Sedimentation Rate < 1 mm/hr (0-10)
[2024-03-19 13:36] LABS: Alanine Aminotransferase 24 U/L (0-41); Albumin Level 4.7 g/dL (3.5-5.2); Alkaline Phosphatase 62 U/L (40-130); Aspartate Amino Transferase 23 U/L (0-40); Globulin 2.6 g/dL (1.3-4.6); Glomerular Filtration Rate 73.8 mL/min (90-130); Total Bilirubin 0.5 mg/dL (0.15-1.2); Total Protein 7.3 g/dL (6.6-8.7)
== END 2024-03-19 12:46 | disposition home or self-care (01) ==
LOC: LAB 12:46
PROVIDERS: PCP Nurse Practitioner; Visit Provider Internal Medicine Rheumatology
DX: Z79.899 Other long term (current) drug therapy (principal)
CPT/HCPCS: 36415; 80076; 82565; 85025; 85651; 86140

== ENCOUNTER 2024-03-27 09:18 | Emergency (ER) | payer OTHER, SELFPAY ==
[2024-03-27 09:34] VITALS: BP 144/93; PULSE 64; RESP 17; TEMP 36.4; O2SAT 100; BMI 28.5
--- NOTE | 2024-03-27 09:44 | ED_ITS ---
HPI - Abdominal Pain 2 General: Chief Complaint: Abdominal Pain Stated Complaint: lower abd pain - [facility] Time Seen by Provider: 03/27/24 09:20 Source: patient Mode of arrival: ambulatory Limitations: no limitations History of Present Illness: Patient is a 39-year-old male presents to ED today with a complaint of lower abdominal pain. He states pain has been present for approximately 2 weeks and has been constant and progressively worsening over that time period. He denies any exacerbating or alleviating factors to his discomfort. It does not seem to be affected by movement, eating, or lifting/straining. He has not noticed any changes to his bowel habits. He is not complaining of dysuria, frequency, urgency, or hematuria. No fevers. He was reportedly seen at the OR and referred to the emergency department for further evaluation. Previous abdominal surgeries include an inguinal hernia repair a few years ago by Dr. Madrigal. He has not had any issues with this. He is not having any groin, scrotal, or testicular discomforts. MD elicited complaint: abdominal pain Pertinent past history: none Onset (ago): week(s) Pain Consistency: constant Location: RLQ and LLQ Radiation: none Migration to: no migration Exacerbating factors: nothing Relieving factors: nothing Associated Symptoms: Reports no associated symptoms; Denies change in bowel habits, chills, constipation, diarrhea, dysuria, fever(s), hematochezia, melena, nausea and vomiting Related Data Home Medications Medication Instructions Recorded Confirmed ibuprofen 800 mg tablet 800 mg PO TID PRN Pain, Mild 07/27/23 03/27/24 Previous Rx's Medication Instructions Recorded ASO brace #1 ea 09/04/22 folic acid 1 mg tablet 1 mg PO DAILY #90 tabs 12/09/23 methotrexate sodium 2.5 mg tablet 12.5 mg (5 x 2.5 mg) PO .week 12/09/23 Rheumatoid Arthritis #75 tabs prednisone 20 mg tablet See Rx Instructions PO .COMPLEX 12/09/23 PRN joint pain flare #30 tabs sulfasalazine 500 mg tablet 1 g (2 x 500 mg) PO BID #360 tabs 12/09/23 Allergies Allergy/AdvReac Type Severity Reaction Status Date / Time No Known Allergies Allergy Verified 03/27/24 09:42 Review of Systems 2 Const: Denies: fever(s), chills, body aches, fatigue or malaise Card: Denies: chest pain Resp: Denies: dyspnea GI: Reports: abdominal pain; Denies: nausea, vomiting, diarrhea, constipation, change in bowel habits, hematochezia or melena : Denies: flank pain, difficulty urinating, dysuria, urinary frequency, urinary urgency or urinary hesitancy Musc: Denies: neck pain, back pain, extremity pain, extremity swelling, joint pain or joint swelling Skin/Breast: Denies: rash Neuro: Denies: headache(s) or dizziness PFSH ED 2 PFSH: Medical History Immunization counseling High risk medication use 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 Actinic keratoses Gout Hyperlipemia Personal history of traumatic brain injury Sleep apnea PTSD (post-traumatic stress disorder) Chronic diarrhea No significant past medical history Surgical History History of foot surgery History of left inguinal hernia repair 03/29/22 History of left knee surgery No significant past surgical history Family History Denies family history of Rheumatoid arthritis Diabetes Lupus CAD (coronary artery disease) Chronic kidney disease (CKD) Lung disease Cancer Hypertension Stroke Social History Smoking and tobacco/nicotine status: never used tobacco/nicotine Alcohol intake: current Alcohol intake frequency: holidays/special occasions only Physical Exam 2 Const: COMMON NORMALS: no acute distress, average body habitus, patient oriented x3, no limitations, healthy appearing, alert and well nourished Resp: COMMON NORMALS: normal respiratory effort Cardio: COMMON NORMALS: regular rate RATE: regular rate GI: COMMON NORMALS: Soft to palpation INSPECTION: Yes normal to inspection AUSCULTATION: Yes normoactive bowel sounds PALPATION: Yes Soft to palpation, Yes Tenderness to palpation present (GI) Details: LLQ and RLQ, No Guarding due to palpation present (GI) and No Rigid due to palpation : COMMON NORMALS: Yes no CVA tenderness BLADDER/KIDNEY EXAM: Yes no CVA tenderness Back/Pelvis: COMMON NORMALS: no CVA tenderness Neuro: COMMON NORMALS: patient oriented x3 and gait normal S ENSORIUM/ORIENTATION: Yes alert Skin: COMMON NORMALS: no rashes or lesions noted GENERAL SKIN EXAM: no rashes or lesions noted Course 2 Vital Signs: Vital signs: Vital Signs Temperature 97.5 F L 03/27/24 09:34 Pulse Rate 64 03/27/24 09:34 Respiratory Rate 17 03/27/24 09:34 Blood Pressure 144/93 03/27/24 09:34 Pulse Oximetry 100 03/27/24 09:34 Oxygen Delivery Me thod Room Air 03/27/24 09:34 MDM - Abdominal Pain Medical Decision Making Patient clinically appears in no acute distress. His vital signs are stable. His blood work here overall is unremarkable. UA is clear. CT showing no emergent or surgical pathology. Patient will be allowed discharge with [facility]. Return to ED precautions given. Medical Records I reviewed the patient's medical records. Lab Data I reviewed the patient's lab results. 03/27/24 09:53 03/27/24 09:53 Labs/Radiology: Radiology Impressions Abdomen/Pelvis CT 03/27/24 09:52 IMPRESSION: 1. Normal appendix. 2. No renal obstruction. 3. Bilateral renal cysts. There are additional too small to characterize renal hypodensities. 4. Negative gallbladder. 5. No GI tract obstruction. Laboratory Results WBC 5.21 10^3/uL (3.29-11.43) 03/27/24 09:53 RBC 4.87 10^6/uL (3.85-5.65) 03/27/24 09:53 Hgb 15.30 g/dL (11.27-16.99) 03/27/24 09:53 Hct 45.7 % (37-53) 03/27/24 09:53 MCV 93.8 fl (82-101) 03/27/24 09:53 MCH 31.4 pg (27-33) 03/27/24 09:53 MCHC 33.5 g/dL (30-55) 03/27/24 09:53 RDW 12.5 % (12.1-15.1) 03/27/24 09:53 Plt Count 154 10^3/cmm (157-399) L 03/27/24 09:53 MPV 10.9 fL (7.4-10.4) H 03/27/24 09:53 Neut % (Auto) 54.5 % 03/27/24 09:53 Lymph % (Auto) 32.8 % 03/27/24 09:53 [place] % (Auto) 10.0 % 03/27/24 09:53 Eos % (Auto) 1.5 % 03/27/24 09:53 Baso % (Auto) 0.6 % 03/27/24 09:53 Neut # (Auto) 2.84 10^3/uL (1.8-7.7) 03/27/24 09:53 Lymph # (Auto) 1.7 10^3/uL (0.8-4.8) 03/27/24 09:53 [place] # (Auto) 0.5 10^3/uL (0.2-0.9) 03/27/24 09:53 Eos # (Auto) 0.1 10^3/uL (0.0-0.8) 03/27/24 09:53 Baso # (Auto) 0.0 10^3/uL (0.0-0.1) 03/27/24 09:53 Nucleated RBC % (auto) 0 % 03/27/24 09:53 Nucleated RBCs # 0.0 /100WBC 03/27/24 09:53 Sodium 136 mmol/L (136-145) 03/27/24 09:53 Potassium 4.1 mmol/L (3.5-5.1) 03/27/24 09:53 Chloride 99 mmol/L (98-107) 03/27/24 09:53 Carbon Dioxide 28 mmol/L (22-29) 03/27/24 09:53 Anion Gap 13.1 (5-19) 03/27/24 09:53 BUN 17 mg/dL (6-20) 03/27/24 09:53 Creatinine 1.2 mg/dL (0.7-1.2) 03/27/24 09:53 GFR Calculation 66.7 mL/min (90-130) L 03/27/24 09:53 Glucose 96 mg/dL (65-115) 03/27/24 09:53 Calculated Osmolality 283 mOsm/kg (285-295) L 03/27/24 09:53 Calcium 9.1 mg/dL (8.5-10.5) 03/27/24 09:53 Total Bilirubin 0.7 mg/dL (0.15-1.2) 03/27/24 09:53 AST 23 U/L (0-40) 03/27/24 09:53 ALT 26 U/L (0-41) 03/27/24 09:53 Alkaline Phosphatase 59 U/L (40-130) 03/27/24 09:53 Total Protein 7.3 g/dL (6.6-8.7) 03/27/24 09:53 Albumin 4.7 g/dL (3.5-5.2) 03/27/24 09:53 Globulin 2.6 g/dL (1.3-4.6) 03/27/24 09:53 Lipase 41 U/L (13-60) 03/27/24 09:53 Urine Color Yellow (Yellow) 03/27/24 10:37 Urine Appearance Clear (CLEAR) 03/27/24 10:37 Urine pH 5.0 (5-7) 03/27/24 10:37 Ur Specific [place] 1.023 (1.005-1.030) 03/27/24 10:37 Urine Protein Negative (Negative) 03/27/24 10:37 Urine Glucose (UA) Negative (Normal) 03/27/24 10:37 Urine Ketones Negative (Negative) 03/27/24 10:37 Urine Blood Negative (Negative) 03/27/24 10:37 Urine Nitrate Negative (Negative) 03/27/24 10:37 Urine Bilirubin Negative (Negative) 03/27/24 10:37 Urine Urobilinogen 0.2 mg/dL (Negative) 03/27/24 10:37 Ur Leukocyte Esterase Negative (Negative) 03/27/24 10:37 Urine RBC 0-2 /hpf (0-2) 03/27/24 10:37 Urine WBC 0-5 /hpf (0-5) 03/27/24 10:37 Ur Squamous Epith Cells 0-5 /hpf (0-5) 03/27/24 10:37 Amorphous Sediment Not Reportable 03/27/24 10:37 Urine Bacteria None seen /hpf (NONE) 03/27/24 10:37 Hyaline Casts 1.21 /lpf 03/27/24 10:37 All radiology interpretation(s) finalized by discharge Discharge Plan Discharge Patient Disposition: Home Clinical Impression: Abdominal pain, lower Condition: Stable Prescriptions: No Action (DME) ASO brace See Rx Instructions .Route .MEDSUPPLY Qty: 1 0RF Rx Instructions: As directed folic acid 1 mg tablet 1 mg PO DAILY Qty: 90 3RF methotrexate sodium 2.5 mg tablet 12.5 mg PO .week Qty: 75 1RF Rx Instructions: take 5 tabs once a week prednisone 20 mg tablet See Rx Instructions PO .COMPLEX PRN (Reason: joint pain flare) Qty: 30 1RF Rx Instructions: take 1 or 2 tab daily for 3-7 days as needed for arthritis flare PO PRN; sulfasalazine 500 mg tablet 1 g PO BID Qty: 360 1RF Rx Instructions: give with food ibuprofen 800 mg tablet 800 mg PO TID PRN (Reason: Pain, Mild) Discharge Orders: Discharge ED (Routine); Ordered 03/27/24 Ordered By: Marya Lopez Referrals: Shyann Corrales FNP [Primary Care Provider] - Patient Instructions: Abdominal Pain (ED) Activity Restrictions/Additional Instructions: As we discussed, your blood work here in the emergency department as well as your CT imaging was unremarkable and did not yield an etiology to your lower abdominal pain. From the emergency department, it is our goal to effectively rule out any life-threatening or emergent condition. This does not rule out all etiologies that could be present to explain your discomforts. I would like you to follow-up with your primary care provider through the OR next week for further evaluation. As we discussed, please return to the emergency department for worsening or severe abdominal pain, bloody bowel movements, repetitive episodes of vomiting or diarrhea, fevers, generally feeling worse or unwell, or any other concerns you may have. I hope you begin to feel better soon. Coding Level of Care Code ED Clinical Documentation Spec for Nicholas Manriquez
--- NOTE | 2024-03-27 09:52 | CT_ITS ---
WS: [id number] CT ABDOMEN AND PELVIS WITH CONTRAST HISTORY: lower abdominal pain TECHNIQUE: Imaging performed of the abdomen and pelvis with IV contrast. Single phase imaging of the abdomen. Coronal and sagittal reformats are submitted. All CT scans at [facility] use at dipti st one of these dose optimization techniques: automated exposure control; mA and/or kV adjustment per patient size (includes targeted exams where dose is matched to clinical indication); or iterative re construction. IV CONTRAST: Omnipaque 350; 100 mL IV. Oral contrast: No DLP: 699.38 mGy.cm COMPARISON: 09/03/2022 Lower thorax: Lung bases are clear. Heart is normal size. No hiatal hernia. Liver/biliary system: Normal size with no intrahepatic dilatation. Gallbladder: Normal. No gallstones or wall thickening. No pericholecystic fluid. Pancreas: Normal size pancreas and pancreatic duct. No adjacent inflammation. Spleen: Normal size spleen. No mass or infarct. Adrenal glands: Normal. Right kidney: Too small to characterize cortical hypodensities. No change since the prior study. No o bstruction. Left kidney: Normal size kidney with numerous low-attenuation masses. The largest from the mid kidney measures 2.8 x 2.3 cm. Additional cortical hypodensities were present on the prior study. Some of th dwayne are too small to characterize.. Aorta: Normal. Lymphadenopathy: None. Free fluid: None. GI tract: Normal stomach. No small bowel obstruction. Normal appendix. Diffuse moderate constipation. No diverticulitis. Abdominal wall: Fat containing umbilical hernia. Pelvis: No free fluid or adenopathy within the pelvis. Bones: Unremarkable. CT/CT abdomen pelvis w con* [id number] IMPRESSION: 1. Normal appendix. 2. No renal obstruction. 3. Bilateral renal cysts. There are additional too small to characterize renal hypodensities. 4. Negative gallbladder. 5. No GI tract obstruction.
[2024-03-27 10:03] LABS: Basophils % 0.6 %; Eosinophils # 0.1 10^3/uL (0.0-0.8); Eosinophils % 1.5 %; Hematocrit 45.7 % (37-53); Lymphocytes # 1.7 10^3/uL (0.8-4.8); Lymphocytes % 32.8 %; Mean Corpuscular HGB Conc 33.5 g/dL (30-55); Mean Corpuscular Hemoglobin 31.4 pg (27-33); Mean Corpuscular Volume 93.8 fl (82-101); Mean Platelet Volume 10.9 fL (7.4-10.4); Monocytes # 0.5 10^3/uL (0.2-0.9); Neutrophils # 2.84 10^3/uL (1.8-7.7); Neutrophils % 54.5 %; Nucleated Red Blood Cells % 0 %; Platelet Count 154 10^3/cmm (157-399); Red Blood Count 4.87 10^6/uL (3.85-5.65); Red Cell Distribution Width 12.5 % (12.1-15.1); White Blood Count 5.21 10^3/uL (3.29-11.43)
[2024-03-27] MEDS: iohexol 350 mg/mL 500 mL Btl (per mL) IV (10:09)
[2024-03-27 10:25] LABS: Alanine Aminotransferase 26 U/L (0-41); Albumin Level 4.7 g/dL (3.5-5.2); Alkaline Phosphatase 59 U/L (40-130); Anion Gap 13.1 (5-19); Aspartate Amino Transferase 23 U/L (0-40); Blood Urea Nitrogen 17 mg/dL (6-20); Calcium 9.1 mg/dL (8.5-10.5); Carbon Dioxide 28 mmol/L (22-29); Chloride 99 mmol/L (98-107); Creatinine Clr Calc Pharmacy 97.0081; Globulin 2.6 g/dL (1.3-4.6); Glomerular Filtration Rate 66.7 mL/min (90-130); Glucose 96 mg/dL (65-115); Lipase 41 U/L (13-60); Osmolality Calculated 283 mOsm/kg (285-295); Potassium 4.1 mmol/L (3.5-5.1); Sodium 136 mmol/L (136-145); Total Bilirubin 0.7 mg/dL (0.15-1.2); Total Protein 7.3 g/dL (6.6-8.7)
[2024-03-27 10:50] LABS: Bilirubin Urine Negative (Negative); Blood Urine Negative (Negative); Glucose Urine UA Negative (Normal); Ketones Urine Negative (Negative); Leukocyte Esterase Urine Negative (Negative); Nitrate Urine Negative (Negative); Protein Urine Negative (Negative); Specific Gravity, Urine 1.023 (1.005-1.030); Urine Appearance Clear (CLEAR); Urine Color Yellow (Yellow); Urobilinogen Urine 0.2 mg/dL (Negative)
[2024-03-27 10:54] LABS: Add Urine Microscopic? YES; Bacteria Urine None Seen /hpf; Hyaline Casts Urine 1.21 /lpf; RBC Urine 0-2 /hpf (0-2); Squamous Epithelial Cell Urine 0-5 /hpf (0-5); WBC Urine 0-5 /hpf (0-5)
[2024-03-27 11:24] VITALS: BP 139/89; PULSE 65; O2SAT 100
== END 2024-03-27 11:26 | disposition home or self-care (01) ==
PROVIDERS: Emergency Provider Physician Assistant; PCP Nurse Practitioner
DX: R10.30 Lower abdominal pain, unspecified (principal); E78.5 Hyperlipidemia, unspecified
CPT/HCPCS: 36415; 74177; 80053; 81001; 83690; 85025; 99285

== ENCOUNTER → 2024-04-13 14:02 | Outpatient (BNVA) | payer OTHER, SELFPAY | PROVIDERS: PCP Nurse Practitioner; Visit Provider Internal Medicine Rheumatology | DX: Z79.899 Other long term (current) drug therapy (principal); M13.10 Monoarthritis, not elsewhere classified, unspecified site; M77.52 Other enthesopathy of left foot and ankle; Z71.85 Encounter for immunization safety counseling; M13.171 Monoarthritis, not elsewhere classified, right ankle and foot; M13.172 Monoarthritis, not elsewhere classified, left ankle and foot | CPT/HCPCS: 99214 ==

== ENCOUNTER → 2024-04-14 10:34 | Outpatient (BNVA) | payer OTHER, SELFPAY | PROVIDERS: PCP Nurse Practitioner; Visit Provider Surgery | DX: R10.30 Lower abdominal pain, unspecified (principal) | CPT/HCPCS: 99203; 99214 ==

== ENCOUNTER 2024-04-23 07:54 | Day surgery (SDC) | payer OTHER, SELFPAY ==
[2024-04-23 08:03] VITALS: BP 152/91; PULSE 87; RESP 18; TEMP 36.1; O2SAT 95
[2024-04-23 08:10] VITALS: BMI 28.5
--- NOTE | 2024-04-23 08:13 | W.PM.OPSUD ---
Surgery/Procedure H&P Update DATE OF PROCEDURE: April 23, 2024 DATE H&P PERFORMED: 04/14/24 H&P UPDATE INFORMATION: I have reviewed H&P completed within last 30 days, I have examined patient prior to procedure, No changes to prior documentation and H&P is in [facility] EMR on date indicated PLANNED PROCEDURE: Operation Date: 04/23/24 09:00 Proposed Procedures p Colonoscopy - 05998,R10.9 G0105(Not Applicable) - Bakari Mcdonald MD
[2024-04-23] MEDS: sodium chloride 0.9% 1,000 ML 30 ML IV (08:20)
--- NOTE | 2024-04-23 08:22 | ANES.PREANE2 ---
Pre-Anesthetic Assessment Height/Weight: Height 6 ft Weight 210 lb Temp Pulse Resp BP Pulse Ox O2 Del Method 97.0 F L 87 18 152/91 95 Room Air 04/23/24 08:03 04/23/24 08:03 04/23/24 08:03 04/23/24 08:03 04/23/24 08:03 04/23/24 08:03 Preop Diagnosis: Screening colonoscopy Operation Date: 04/23/24 09:00 Proposed Procedures p Colonoscopy - 90322,R10.9 [id number](Not Applicable) - Bakari Mcdonald MD Was Beta Debra taken within 24 hours: N/A Was Clonidine taken within 24 hours: N/A Last intake: Intake Last Liquid Date 04/22/24 Last Liquid Time 20:00 Last Solid Date 04/21/24 Last Solid Time 21:30 Social No alcohol and No tobacco Exam alert, oriented x 3, clear to auscultation bilaterally and regular rate & rhythm Airway Submandibular: within normal limits Cervical ROM: within normal limits Mallampati: Class II Dentition: full Anesthetic Plan ASA status: 2 Anesthesia: MAC Other: No prior issues with anesthesia Completed bowel prep Denies any cardiac or pulmonary issues Patient has 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, on methotrexate and sulfasalazine METs greater than 4 Plan for MAC anesthetic Medications/Allergies Home Medications Medication Instructions Recorded Confirmed Last Taken Type ASO brace #1 ea 09/04/22 04/23/24 Unknown Rx ibuprofen 800 mg tablet 800 mg PO TID PRN Pain, Mild 07/27/23 04/23/24 07/27/23 History folic acid 1 mg tablet 1 mg PO DAILY #90 tabs 04/14/24 04/23/24 04/21/24 Rx prednisone 20 mg tablet See Rx Instructions PO .COMPLEX 04/14/24 04/23/24 Unknown Rx PRN joint pain flare #30 tabs sulfasalazine 500 mg tablet 1 g (2 x 500 mg) PO BID #360 tabs 04/14/24 04/23/24 04/20/24 Rx methotrexate sodium 2.5 mg tablet 5 mg (2 x 2.5 mg) PO .Q7days #75 04/15/24 04/23/24 04/16/24 Rx tabs Allergies Allergy/AdvReac Type Severity Reaction Status Date / Time No Known Allergies Allergy Verified 04/23/24 08:08 Current Medications Generic Name Dose Route Start Last Admin Trade Name Elvia PRN Reason Stop Dose Admin Sodium Chloride 1,000 mls @ 30 mls/hr 04/23/24 08:15 04/23/24 08:20 Sodium Chloride 0.9% IV 30 mls/hr .Q24H MAILE Administration PFSH Anesthesia Medical History Immunization counseling High risk medication use 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 Actinic keratoses Gout Hyperlipemia Personal history of traumatic brain injury Sleep apnea PTSD (post-traumatic stress disorder) Chronic diarrhea No significant past medical history Surgical History History of foot surgery History of left inguinal hernia repair 03/29/22 History of left knee surgery No significant past surgical history Family History Denies family history of Rheumatoid arthritis Diabetes Lupus CAD (coronary artery disease) Chronic kidney disease (CKD) Lung disease Cancer Hypertension Stroke Social History Smoking and tobacco/nicotine status: never used tobacco/nicotine Alcohol intake: current Alcohol intake frequency: few times a month Data Anesthesia Cardiac Studies: No Data to Display
[2024-04-23 09:09] VITALS: BP 118/74; PULSE 85; RESP 12; TEMP 36.2; O2SAT 96
[2024-04-23 09:25] VITALS: BP 118/78; PULSE 72; RESP 18; O2SAT 98
--- NOTE | 2024-04-23 09:35 | ANE.PACU2 ---
Inpatient post-anesthesia follow up: Airway intact: Yes Vital signs: Temperature 97.1 F Pulse Rate 72 Respiratory Rate 18 Blood Pressure 118/78 Pulse Oximetry 98 Oxygen Delivery Me thod Room Air Oxygen Flow Rate Fraction of Inspir ed Oxygen Hydration adequate: Yes Nausea and vomiting: No Pain level: 1 Mental status: Baseline
== END 2024-04-23 09:35 | disposition home or self-care (01) ==
PROVIDERS: PCP Nurse Practitioner; Visit Provider Surgery
PROC: 0DJD8ZZ Inspection of Lower Intestinal Tract, Via Natural or Artificial Opening Endoscopic (ICD-10-PCS; CPT 45378; principal; 2024-04-23 09:00)
DX: R10.9 Unspecified abdominal pain (principal); G89.29 Other chronic pain; K63.89 Other specified diseases of intestine; E78.5 Hyperlipidemia, unspecified; G47.30 Sleep apnea, unspecified
CPT/HCPCS: 45380; 88305; J2704; J7030

== ENCOUNTER 2024-08-14 12:14 | Outpatient (CLI) | payer OTHER, SELFPAY ==
[2024-08-14 12:42] LABS: Basophils % 0.9 %; Eosinophils # 0.1 10^3/uL (0.0-0.8); Eosinophils % 1.5 %; Hematocrit 41.9 % (37-53); Lymphocytes # 1.9 10^3/uL (0.8-4.8); Lymphocytes % 41.1 %; Mean Corpuscular HGB Conc 34.6 g/dL (30-55); Mean Corpuscular Hemoglobin 31.5 pg (27-33); Mean Corpuscular Volume 91.1 fl (82-101); Mean Platelet Volume 10.8 fL (7.4-10.4); Monocytes # 0.5 10^3/uL (0.2-0.9); Monocytes % 10.5 %; Neutrophils # 2.13 10^3/uL (1.8-7.7); Neutrophils % 45.6 %; Nucleated Red Blood Cells % 0 %; Platelet Count 148 10^3/cmm (157-399); Red Cell Distribution Width 12.7 % (12.1-15.1); White Blood Count 4.67 10^3/uL (3.29-11.43)
[2024-08-14 12:45] LABS: Erythrocyte Sedimentation Rate < 1 mm/hr (0-10)
[2024-08-14 12:58] LABS: Alanine Aminotransferase 38 U/L (0-41); Albumin Level 4.7 g/dL (3.5-5.2); Alkaline Phosphatase 59 U/L (40-130); Aspartate Amino Transferase 31 U/L (0-40); Globulin 2.4 g/dL (1.3-4.6); Glomerular Filtration Rate 73.8 mL/min (90-130); Total Bilirubin 0.6 mg/dL (0.15-1.2); Total Protein 7.1 g/dL (6.6-8.7)
== END 2024-08-14 12:15 | disposition home or self-care (01) ==
LOC: LAB 12:15
PROVIDERS: PCP Nurse Practitioner; Visit Provider Internal Medicine Rheumatology
DX: Z79.899 Other long term (current) drug therapy (principal)
CPT/HCPCS: 36415; 80076; 82565; 85025; 85651; 86140

== ENCOUNTER → 2024-08-17 13:28 | Outpatient (BNVA) | payer OTHER, SELFPAY | PROVIDERS: PCP Nurse Practitioner; Visit Provider Internal Medicine Rheumatology | DX: M77.52 Other enthesopathy of left foot and ankle (principal); Z79.899 Other long term (current) drug therapy; Z71.85 Encounter for immunization safety counseling; M06.041 Rheumatoid arthritis without rheumatoid factor, right hand; M06.042 Rheumatoid arthritis without rheumatoid factor, left hand | CPT/HCPCS: 99214 ==

== ENCOUNTER 2024-12-06 16:36 | Emergency (ER) | payer OTHER, SELFPAY ==
--- OUTSIDE RECORDS SUMMARY | 2024-03-27 03:00 | XMS_ITS | Encounter Summary ---
Author Name [facility] Address [address] [place] [address] Care Team Providers Care Care Program Director Name Role Phone RAJWINDER OLIVER Primary Care Provider Unavail able Selected Encounter This section includes the information on record at [place] for the Encounter. Date/Time Encounter Type Encounter Description Reason Provider Source Mar 27, 2024 08:00 AM OFF/OP EST OCTOBER X REQ PHY/QHP PRIMARY CARE/MEDICINE ICD-10-CM R10.30 Lower abdominal pain, unspecified CUSTRED,GOPI J IHE Encounter Template Text not used by [place] Assessments - Encounter Diagnoses This section includes the primary and secondary diagnoses documented for the Encounter. Date/Time Primary/Secondary Diagnosis Diagnosis Name Provider Source Mar 27, 2024 03:51 PM PRIMARY Lower abdominal pain, unspecified CUSTRED,GOPI J [facility] Plan of Treatment: Future Appointments (+ 6 months) and Future Tests (+/- 45 days) The Plan of Treatment section includes future care activities for the patient from all [facility] treatment[facility]ilities. This section includes future appointments and future orders which are active, pending or scheduled. Future Appointments This section includes appointments that were scheduled to occur 6 months from the date of the Encounter, up to a maximum of 20 appointments. The data comes from all [place] treatment facilities. Appointment Date/Time Appointment Type Appointme nt Facility Name Apr 02, 2024 10:00 AM [facility]ICINE [facility] Apr 09, 2024 01:30 PM [facility] [facility] Apr 14, 2024 10:40 AM [facility] [place] [facility] Aug 17, 2024 01:30 PM [facility] [place] [facility] Aug 25, 2024 02:30 PM AMBULATORY - MEDICINE [facility] Vital Signs: All taken on the encounter date This section contains inpatient and outpatient Vital Signs collected on the date of the Encounter. Date/Time Temperature Pulse Blood Pressure Respiratory Rate SP02 Pain Height Weight Body Mass Index Source Mar 27, 2024 03:43 PM 97.6 72 143/98 [facility] Social History: Smoking Status (Most current) and Tobacco Use (All prior to encounter date) This section includes the most current, and the historical, smoking and tobacco- related health factors from the [place] facility where the Encounter took place. Current Smoking Status This section includes the most current smoking, or tobacco-related health factor, from the [place] facility where the Encounter took place. Date/Time Current Smoking Status Comment Facil ity October 16, 2023 08:30 AM VA-TOBACCO NEVER USED [facility] Tobacco Use History This section includes a history of the smoking, or tobacco-related health factors, that were collected on or before the date of the Encounter. The data comes from the [place] facility where the Encounter took place. Date/Time Smoking Status/Tobacco Use Comment F acility Aug 02, 2022 09:00 AM VA-TOBACCO NEVER USED [facility] [place] [facility] Aug 14, 2021 11:00 AM VA-TOBACCO NEVER USED [facility] Jul 05, 2020 09:00 AM VA-TOBACCO FORMER USER [facility] Jul 05, 2020 09:00 AM VA-TOBACCO QUIT < 1 YEAR [facility] Dec 16, 2018 02:50 PM VA-TOBACCO FORMER USER [facility] Dec 16, 2018 02:50 PM VA-TOBACCO QUIT 5 TO < 15 YRS [facility] Feb 03, 2018 01:52 PM VA-TOBACCO FORMER USER [facility] Feb 03, 2018 01:52 PM VA-TOBACCO QUIT < 1 YEAR [facility] Apr 24, 2013 08:38 AM TOBACCO MEDS OFFERED BUT DECLINE D [facility] Apr 24, 2013 08:38 AM TOBACCO OFFERED PT MEDS (PROVIDE R) [facility] Apr 24, 2013 08:38 AM TOBACCO OFFERED STOP SMOKING CLI SAGAR [facility] Jul 05, 2010 02:05 PM LIFETIME NON-USER OF TOBACCO [facility] Jul 06, 2009 11:32 AM CURRENT TOBACCO USER [facility] Jul 06, 2009 11:32 AM TOBACCO OFFERED STOP SMOKING CLI [facility]AGAR [facility] Encounter Notes: All associated encounter notes This section contains the clinical notes associated to the Encounter. Date/Time Encounter Note(s) Provider Source Mar 27, 2024 03:42 PM NURSING PROGRESS N OTE: LOCAL TITLE: NURSING NOTE PB STANDARD TITLE: NURSING PROGRESS NOTE DATE OF NOTE: MAR 27, 2024@15:42 ENTRY DATE: MAR 27, 2024@15:43 AUTHOR: GOPI GONZALEZ EXP COSIGNER: URGENCY: STATUS: COMPLETED Blood Pressure: 143/98 Pulse: 72 Temperature: 97.6 F (36.4 C) Pulse Oximetry: 96% Active Outpatient Medications: Active Outpatient Medications (including Supplies): Active Outpatient Medications Status 1) FOLIC ACID 1MG TAB TAKE ONE TABLET BY MOUTH ONCE A ACTIVE DAY 2) IBUPROFEN 800MG TAB TAKE ONE TABLET BY MOUTH THREE ACTIVE TIMES A DAY NEEDED FOR PAIN TAKE WITH FOOD. 3) MELATONIN 5MG CAP/TAB TAKE TWO CAP/TAB BY MOUTH AT ACTIVE BEDTIME FOR SLEEP 4) METHOTREXATE NA 2.5MG TAB TAKE FIVE TABLETS BY MOUTH ACTIVE EVERY WEEK FOR RHEUMATOID ARTHRITIS. 5) PRAZOSIN HCL 5MG CAP TAKE ONE CAPSULE BY MOUTH AT ACTIVE BEDTIME FOR NIGHTMARES MAY CAUSE DIZZINESS OR DROWSINESS. 6) PREDNISONE 20MG TAB TAKE 1-2 TABLETS BY MOUTH ONCE A ACTIVE DAY NEEDED FOR ARTHRITIS/JOINT PAIN FLARE FOR 3-7 DAYS. TAKE WITH FOOD OR MILK. 7) SULFASALAZINE 500MG TAB TAKE TWO TABLETS BY MOUTH ACTIVE TWICE A DAY . TAKE WITH FOOD. CC: Dacula presents to clinic for lower abdominal pain. Subjective: [place] reports pain to lower abdomen on and off for last week. States the pain seems to be getting worse. No diarrhea, black or tarry stools, and no reports of hard constipated stools. Denies excessive flatus. O/A: ambulates into clinic gait steady with no guarding noted. Abdomen assessed and soft with no distention. Tenderness lower abdomen with palpation. Bowel sounds audible throughout and normal. Plan/ Intervention: Due to nonspecific lower abdominal pain which increases with palpation, advised to report to ER for evaluation of lower abdominal pain. 72 hour self reporting form provided with instructions. Dacula prefers to report to ER via private vehicle. Report called to ER charge nurse with understanding. RTC: As scheduled and as needed. /stephanie/ GOPI CHRISTIANSON, ALYSSIA [place] CBROLAND Signed: 03/27/2024 15:50 Receipt Acknowledged By: 03/27/2024 18:06 /stephanie/ THEE Draper-STEFANIE Fenwick, GOPI BLAKELY [place] TONY LOMBARDO
--- OUTSIDE RECORDS SUMMARY | 2024-04-02 05:00 | XMS_ITS | Encounter Summary ---
Author Name [facility] [place] [facility] [place] Address [address] [place] [address] Care Team Providers Care Cut Off Operator Scorer Name Role Phone RAJWINDER OLIVER Primary Care Provider Unavail able Selected Encounter This section includes the information on record at [place] for the Encounter. Date/Time Encounter Type Encounter Description Reason Provider Source Apr 02, 2024 10:00 AM OFFICE O/P EST LOW 20 MIN PRIMARY CARE/MEDICINE ICD-10-CM R10.30 Lower abdominal pain, unspecified OLIVER,CATHER INE R IHE Encounter Template Text not used by [place] Assessments - Encounter Diagnoses This section includes the primary and secondary diagnoses documented for the Encounter. Date/Time Primary/Secondary Diagnosis Diagnosis Name Provider Source Apr 02, 2024 11:22 AM PRIMARY Lower abdominal pain, unspecified GUERO OLIVER NE R [facility] Apr 02, 2024 11:22 AM SECONDARY Irritable bowel syndrome, unspecified ELVA OLIVERERI NE R [facility] Plan of Treatment: Future Appointments (+ 6 months) and Future Tests (+/- 45 days) The Plan of Treatment section includes future care activities for the patient from all [place] treatmentfacilities. This section includes future appointments and future orders which are active, pending or scheduled. Future Appointments This section includes appointments that were scheduled to occur 6 months from the date of the Encounter, up to a maximum of 20 appointments. The data comes from all [place] treatment facilities. Appointment Date/Time Appointment Type Appointme nt Facility Name Apr 09, 2024 01:30 PM [facility] [place] [facility] [place] [facility] Apr 14, 2024 10:40 AM [facility] [place] [facility] Aug 17, 2024 01:30 PM [facility] [place] [facility] Aug 25, 2024 02:30 PM AMBULATORY - MEDICINE [facility] [place] [facility] Vital Signs: All taken on the encounter date This section contains inpatient and outpatient Vital Signs collected on the date of the Encounter. Date/Time Temperature Pulse Blood Pressure Respiratory Rate SP02 Pain Height Weight Body Mass Index Source Apr 02, 2024 10:54 AM 97.8 84 134/88 18 97 212 29 [facility] [place] [facility] Social History: Smoking Status (Most current) and Tobacco Use (All prior to encounter date) This section includes the most current, and the historical, smoking and tobacco- related health factors from the [place] facility where the Encounter took place. Current Smoking Status This section includes the most current smoking, or tobacco-related health factor, from the [place] facility where the Encounter took place. Date/Time Current Smoking Status Comment Facil ity October 16, 2023 08:30 AM VA-TOBACCO NEVER USED [facility] Tobacco Use History This section includes a history of the smoking, or tobacco-related health factors, that were collected on or before the date of the Encounter. The data comes from the [place] facility where the Encounter took place. Date/Time Smoking Status/Tobacco Use Comment F acility Aug 02, 2022 09:00 AM VA-TOBACCO NEVER USED [facility] Aug 14, 2021 11:00 AM VA-TOBACCO NEVER USED [facility] Jul 05, 2020 09:00 AM VA-TOBACCO FORMER USER [facility] Jul 05, 2020 09:00 AM VA-TOBACCO QUIT < 1 YEAR [facility] Dec 16, 2018 02:50 PM VA-TOBACCO FORMER USER [facility] Dec 16, 2018 02:50 PM VA-TOBACCO QUIT 5 TO < 15 YRS [facility] Feb 03, 2018 01:52 PM VA-TOBACCO FORMER USER [facility] Feb 03, 2018 01:52 PM VA-TOBACCO QUIT < 1 YEAR [facility] Apr 24, 2013 08:38 AM TOBACCO MEDS OFFERED BUT [facility]CLINE [facility] Apr 24, 2013 08:38 AM TOBACCO OFFERED PT MEDS (PROVIDE R) [facility] Apr 24, 2013 08:38 AM TOBACCO OFFERED STOP SMOKING CLI [facility] Jul 05, 2010 02:05 PM LIFETIME NON-USER OF TOBACCO [facility] Jul 06, 2009 11:32 AM CURRENT TOBACCO USER [facility] Jul 06, 2009 11:32 AM TOBACCO OFFERED STOP SMOKING CLI SAGAR [facility] Encounter Notes: All associated encounter notes This section contains the clinical notes associated to the Encounter. Date/Time Encounter Note(s) Provider Source Aug 19, 2024 01:21 PM TELEPHONE ENCOUNTE R NOTE: LOCAL TITLE: TELEPHONE NOTE STANDARD TITLE: TELEPHONE ENCOUNTER NOTE DATE OF NOTE: AUG 19, 2024@13:21 ENTRY DATE: AUG 19, 2024@13:21:51 AUTHOR: JAIDA MARQUEZ COSIGNER: URGENCY: STATUS: COMPLETED [place] contacted clinic requesting to have annual appt moved to a sooner date. I advised that I will alert a outpatient clerk to contact him with an appt date and time. /stephanie/ Jaida Marquez RN [facility], [facility] Signed: 08/19/2024 13:23 Receipt Acknowledged By: 08/20/2024 14:49 /stephanie/ ALVARO FULLER [facility] JAIDA MARQUEZ [facility] Apr 02, 2024 11:08 AM PRIMARY CARE PROGR ESS NOTE: LOCAL TITLE: PRIMARY CARE CLINIC PROGRESS NOTE PB STANDARD TITLE: PRIMARY CARE PROGRESS NOTE DATE OF NOTE: APR 02, 2024@11:08 ENTRY DATE: APR 02, 2024@11:08:16 AUTHOR: RAJWINDER OLIVERIGNER: URGENCY: STATUS: COMPLETED PROVIDER ASSESSMENT DATE & TIME:Mar@11:08 CHIEF COMPLAINT: ER follow up for abdominal pain. HISTORY OF PRESENT ILLNESS: is being seen for ER follow up after he was seen for abdominal pain. [place] states that he continues to have some lower abdominal pain off and on. He states that the CT scan did not show any acute findings but that it was advised he have a colonoscopy. 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 denies any other concerns. Active problems/med list side puller: 1) Arthritis of knee 2) Chronic back pain 3) Traumatic brain injury with loss of consciousness 4) HLD - Hyperlipidemia 5) Chronic post-traumatic stress disorder following combat 6) Legal problem 7) Insomnia 8) Nightmares associated with chronic post-traumatic stress disorder 9) Sleep Apnea ([facility] [id number]) 10) Actinic keratosis 11) Migraine without aura 12) Gout ([facility] [id number]) 13) Capsulitis 14) Simple renal cyst 15) Inflammatory arthritis Active Outpatient Medications (including Supplies): Active Outpatient [...] TWICE A DAY . TAKE WITH FOOD. REVIEW OF SYSTEMS: GI: No nausea, vomiting, diarrhea, constipation, melena, or hematochezia. abdominal pain and ibs symptoms. : No dysuria, hematuria, urinary frequency, weak stream, or post-void dribbling. MUSCULOSKELETAL:No muscle or joint pain. SKIN: No rash, lesions, or infection PSYCH: No Depression or Anxiety. Not suicidal. PHYSICAL ASSESSMENT: VITAL SIGNS Pulse: 84 (04/02/2024 10:54) Blood Pressure: 134/88 (04/02/2024 10:54) Respiratory Rate: 18 (04/02/2024 10:54) Temperature: 97.8 F [36.6 C] (04/02/2024 10:54) Weight: 212 lb [96.16 kg] (04/02/2024 10:54) Height: 72 in [182.9 cm] (10/16/2023 08:47) Pain: 0 (10/16/2023 08:47) CARDIAC: Regular rate and rhythm without murmur. No edema. RESPIRATORY: CTA, BEBS GI: Abdomen soft,with ABS, no HSM, no guarding or rebound. MUSCULOSKELETAL:No muscle or joint tenderness. FROM. SKIN: Norene without rash or lesions. NEUROLOGICAL: The is alert and oriented without distress. Affect appropriate. IMPRESSION: Irritable Bowel Syndrome-current Abdominal Pain-current PLAN: Will order colonoscopy. Increase water intake. RTC or ER if abdominal pain increases or returns. \ Patient is advised this primary care clinic has open access and he can make a same day appointment anytime a problem/concern arises. Patient further advised he can be seen on a walk-in basis as needed. Patient is provided clinic contact information. Medications reviewed and reconciled. Discussed diet and exercise as relevant to patient conditions. Treatment plan as noted above and the After Visit Summary was reviewed with [place]; opportunity provided to report concerns and ask question regarding aspects of care or treatment or services; concurrence reached and verbalized understanding. Please refer to addendum or follow up lab letter for plan of care/changes related to lab/test results not available at conclusion of appointment, if any. Discussed with patient that in the event of community imaging / testing being ordered in the future, once the imaging / testing has been completed, please notify PACT of within 1 week by a VA PACT member; this is due to intermittent lapses in notification of imaging completion within CPRS. All questions answered; agrees to plan of care. Follow up as listed above, annually, and as needed. Keep all completion at outside facility if not called with results appointments. Medications Reconciled. Time spent 30 minutes. /stpehanie/ THEE [facility], [facility] Signed: 04/02/2024 11:21 RAJWINDER OLIVER [facility] Apr 02, 2024 10:43 AM PRIMARY CARE ALEXANDER KAMARA NOTE: LOCAL TITLE: PRIMARY CARE NURSING PROGRESS NOTE (TEXT) NURSING P STANDARD TITLE: PRIMARY CARE NURSING NOTE DATE OF NOTE: APR 02, 2024@10:43 ENTRY DATE: APR 02, 2024@10:44:04 AUTHOR: JAIDA MARQUEZ COSIGNER: URGENCY: STATUS: COMPLETED Established Patient RICARDA LEGGETT IS A 39 YEAR OLD MALE BEING SEEN IN CLINIC APR 02, 2024. == == REASON FOR VISIT: ER follow up abdomen pain x2 weeks Are you receiving care any where other than the [facility]? No HEALTH AND SURGICAL HISTORY: Does patient report using home oxygen? No CURRENT ACTIVE MEDICATIONS FOR REVIEW: Allergies/ADRs (Tool #5) FACILITY ALLERGY/ADR -------- No Remote Allergy/ADR Data available for this patient [facility] No Known Allergies Med. Reconciliation (Tool #1) INCLUDED IN THIS LIST: Alphabetical list of active outpatient prescriptions dispensed from this VA (local) and dispensed from another VA or DoD facility (remote) as well as inpatient orders (local pending and active), local clinic medications, locally documented non-VA medications, and local prescriptions that have or been discontinued in the past 90 days. Non-VA Meds Last Documented On: Data not found NOTE The display of VA prescriptions dispensed from another VA or DoD facility (remote) is limited to active outpatient prescription entries matched to National Drug File at the originating site and may not include some items such as investigational drugs, compounds, etc. NOT INCLUDED IN THIS LIST: Medications self-entered by the patient into personal health records (i.e. [employer]) are NOT included in this list. Non-VA medications documented outside this [place], remote inpatient orders (regardless of status) and remote clinic medications are NOT included in this list. The patient and provider must always discuss medications the patient is taking, regardless of where the medication was dispensed or obtained. OUTPT FOLIC ACID 1MG TAB (Status = Active) TAKE ONE TABLET BY MOUTH ONCE A DAY Rx# [id number] Last Released: 01/04/24 Qty/Days Supply: 100/90 Rx Expiration Date: 12/09/24 Refills Remainin OUTPT IBUPROFEN 800MG TAB (Status = Active) TAKE ONE TABLET BY MOUTH THREE TIMES A DAY NEEDED FOR PAIN TAKE WITH FOOD. Rx# [id number] Last Released: 10/22/23 Qty/Days Supply: 270/90 Rx Expiration Date: 10/16/24 Refills Remainin Indication: FOR PAIN OUTPT MELATONIN 5MG CAP/TAB (Status = Active) TAKE TWO CAP/TAB BY MOUTH AT BEDTIME FOR SLEEP Rx# [id number] Last Released: 10/22/23 Qty/Days Supply: 180/90 Rx Expiration Date: 10/16/24 Refills Remainin Indication: FOR SLEEP OUTPT METHOTREXATE NA 2.5MG TAB (Status = Active) TAKE FIVE TABLETS BY MOUTH EVERY WEEK FOR RHEUMATOID ARTHRITIS. Rx# [id number] Last Released: 12/11/23 Qty/Days Supply: 75/90 Rx Expiration Date: 12/09/24 Refills Remainin OUTPT PRAZOSIN HCL 5MG CAP (Status = Active) TAKE ONE CAPSULE BY MOUTH AT BEDTIME FOR NIGHTMARES MAY CAUSE DIZZINESS OR DROWSINESS. Rx# [id number] Last Released: 10/22/23 Qty/Days Supply: 90/90 Rx Expiration Date: 10/16/24 Refills Remainin Indication: FOR NIGHTMARES OUTPT PREDNISONE 20MG TAB (Status = Active) TAKE 1-2 TABLETS BY MOUTH ONCE A DAY NEEDED FOR ARTHRITIS/JOINT PAIN FLARE FOR 3-7 DAYS. TAKE WITH FOOD OR MILK. Rx# [id number] Last Released: 12/11/23 Qty/Days Supply: 30 Rx Expiration Date: 12/09/24 Refills Remainin OUTPT SULFASALAZINE 500MG TAB (Status = Active) TAKE TWO TABLETS BY MOUTH TWICE A DAY . TAKE WITH FOOD. Rx# [id number] Last Released: 12/11/23 Qty/Days Supply: / Rx Expiration Date: 12/09/24 Refills Remainin SUPPLIES PHARMACY TERMS AND POSSIBLE PATIENT ACTIONS INPT = [place] inpatient order IV = [place] intravenous medication OUTPT = [place] outpatient prescription PHARMACY POSSIBLE PATIENT TERMS EXPLANATION ACTIONS -------- ----- ACTIVE A prescription that can be If you have refills, filled at the local [place] pharmacy. you may request a refill of this prescription from your [place] pharmacy. CLINIC A medication you received during If you have questions a visit to a [place] clinic or about this medication emergency department. contact your [place] healthcare team. DISCONTINUED A prescription your provider has Contact your VA stopped. It is no longer healthcare team if you available to be sent to you or need more of this picked up at the VA pharmacy medication. window. A prescription which is too old Contact your VA to fill. This does not refer to healthcare team if you the expiration date of the need more of this medication in the container. medication. NON-VA A medication that came from If this medication someplace other than a VA information is pharmacy. This may be a incorrect or out of prescription from either the VA date, please tell your or non VA providers that was VA healthcare team. filled outside the VA. Or, it may be an pcxa-uwi-efvidxr (OTC), herbal, dietary supplements or sample medication. ON HOLD An active prescription that will Contact your VA not be filled until pharmacy pharmacy when you need resolves the issue. more of this medication. PARKED An active prescription that will Contact your VA not be filled until the patient pharmacy when you need requests it. this medication. PENDING This prescription order has been If you have been sent to the pharmacy for review instructed to start and is not ready yet. this medication now, contact your VA pharmacy. SUSPENDED An active prescription that is Contact your VA not scheduled to be filled yet. pharmacy if you need You should receive it before this medication now. you run out. Patient reports taking medications as ordered. IS PATIENT TAKING ANY OVER THE COUNTER MEDICATIONS, SUCH VITAMINS OR HERBAL SUPPLEMENTS, INCLUDING ANY MEDICATIONS PRESCRIBED BY ANOTHER PHYSICIAN? No ALLERGIES/ADVERSE REACTIONS: Patient has answered NKA Does patient have any new allergies to report since last visit? NO VITALS: TEMPERATURE: 97.6 F [36.4 C] (03/27/2024 15:43) BP: 143/98 (03/27/2024 15:43) RESP: 18 (10/16/2023 08:47) PULSE: 72 (03/27/2024 15:43) HT: 72 in [182.9 cm] (10/16/2023 08:47) WT: 222.6 lb [100.97 kg] (10/16/2023 08:47) BMI: 30.3 PAIN ASSESSMENT: (Most Recent Pain Score in Vitals Package: 0 (10/16/2023 08:47) ) The patient indicated that they and their close contacts have not traveled outside of the [place] in the past 21 days. The patient reports the following symptoms: No symptoms present The patient is not immunocompromised. The patient does not report having a history of Multi Drug Resistant Organism (MDRO) within the last five years. The patient does not report having been exposed to measles, chickenpox, or zoster in last 30 days. Patient reports no pain at this visit. Pain Score = 0. STRESS: Thank you for your service. Now let us serve you. At the [facility], we strive to provide you with exceptional health care that improves your health and well-being. Are you feeling sad, empty, or depressed? No Do you need to talk about things in your life that worry you or cause you stress? No Do you need to talk about personal problems, family problems, alcohol use, drug use, or mental or emotional illness? No SUICIDE SCREENING: The patient was asked, Over the past two weeks, how often have you been bothered by thoughts that you would be better off or of hurting yourself in some way? Not At All SPIRITUAL ASSESSMENT: Are there gnosticist practices or spiritual concerns you want the eligibility supervisor, your physician, and other health care team members to immediately know about? No Patient advised to call the clinic for any concerns, questions, or symptoms. Patient and/or caregiver verbalized understanding of plan of care. /stephanie/ ALYSSIA Champion, JGageP [facility] Signed: 04/02/2024 10:49 JAIDA MARQUEZ
--- OUTSIDE RECORDS SUMMARY | 2024-04-09 08:30 | XMS_ITS | Encounter Summary ---
Author Name [facility] [place] Address [address] [place] [address] Care Team Providers Care Lofter Name Role Phone RAJWINDER OLIVER Primary Care Provider Unavail able Selected Encounter This section includes the information on record at [place] for the Encounter. Date/Time Encounter Type Encounter Description Reason Provider Source Apr 09, 2024 01:30 PM OFF/OP EST OCTOBER X REQ PHY/QHP PRIMARY CARE/MEDICINE ICD-10-CM M25.572 Pain in left ankle and joints of left foot EDEN LYNN Elia Encounter Template Text not used by [place] Assessments - Encounter Diagnoses This section includes the primary and secondary diagnoses documented for the Encounter. Date/Time Primary/Secondary Diagnosis Diagnosis Name Provider Source Apr 09, 2024 03:50 PM PRIMARY Pain in left ankle and joints of left foot KURT LYNNI J [facility] Plan of Treatment: Future Appointments (+ [...] 20 appointments. The data comes from all [place] treatment facilities. Appointment Date/Time Appointment Type Appointme nt Facility Name Apr 14, 2024 10:40 AM AMBULATORY - [place] [facility] Aug 17, 2024 01:30 PM AMBUL[facility]ORY - [place] [facility] Aug 25, 2024 02:30 PM [facility]ORY [place]ICINE [facility] [place] [facility] Vital Signs: All taken on the encounter date This section contains inpatient and outpatient Vital Signs collected on the date of the Encounter. Date/Time Temperature Pulse Blood Pressure Respiratory Rate SP02 Pain Height Weight Body Mass Index Source Apr 09, 2024 03:01 PM 97.6 80 132/78 [facility] [place] [facility] Social History: Smoking Status (Most current) and Tobacco Use (All prior to encounter date) This section includes the most current, and the historical, smoking and tobacco- related health factors from the [place] facility where the Encounter took place. Current Smoking Status This section includes the most current smoking, or tobacco-related health factor, from the [place] facility where the Encounter took place. Date/Time Current Smoking Status Comment Facil ity October 16, 2023 08:30 AM VA-TOBACCO NEVER USED [facility] Tobacco Use History This section includes a history of the smoking, or tobacco-related health factors, that were collected on or before the date of the Encounter. The data comes from the [place] facility where the Encounter took place. Date/Time [...] 01:52 PM VA-TOBACCO QUIT < 1 YEAR [facility] [place] [facility] Apr 24, 2013 08:38 AM TOBACCO MEDS OFFERED BUT DECLINE D [facility] [place] [facility] Apr 24, 2013 08:38 AM TOBACCO OFFERED PT MEDS (PROVIDE R) [facility] Apr 24, 2013 08:38 AM TOBACCO OFFERED STOP SMOKING CLI S[facility]AR [facility] Jul 05, 2010 02:05 PM LIFETIME NON-USER OF TOBACCO [facility] Jul 06, 2009 11:32 AM CURRENT TOBACCO USER [facility] Jul 06, 2009 11:32 AM TOBACCO OFFERED STOP SMOKING CLI [facility] Encounter Notes: All associated encounter notes This section contains the clinical notes associated to the Encounter. Date/Time Encounter Note(s) Provider Source Jun 12, 2024 02:15 PM NURSING PROGRESS N OTE: LOCAL TITLE: NURSING NOTE PB STANDARD TITLE: NURSING PROGRESS NOTE DATE OF NOTE: JUN 12, 2024@14:15 ENTRY DATE: JUN 12, 2024@14:15:35 AUTHOR: JAIDA MARQUEZ EXP COSIGNER: URGENCY: STATUS: COMPLETED Colonoscopy GAP Reminder - L,N,P,PH: Recommendations are needed in the clinical reminder system following the patient's most recent colorectal cancer screening/surveillance test (Colonoscopy, Sigmoidoscopy or CT Colonography) Prior/outside colonoscopy results: O[facility] advised no abnormalites found. Follow up in 10 years Date: April 23, 2024 Colonoscopy reminder set 10 years from JUN 12, 2024. /stephanie/ Jaida Marquez RN [facility], [facility] Signed: 06/12/2024 14:21 JAIDA MARQUEZ [facility] Apr 09, 2024 03:00 PM NURSING PROGRESS N OTE: LOCAL TITLE: NURSING NOTE PB STANDARD TITLE: NURSING PROGRESS NOTE DATE OF NOTE: APR 09, 2024@15:00 ENTRY DATE: APR 09, 2024@15:00:42 AUTHOR: EDEN LYNN EXP COSIGNER: URGENCY: STATUS: COMPLETED Blood Pressure: 132/78 Pulse: 80 Temperature: 97.6 F (36.4 C) Pulse Oximetry: 98% Active Outpatient Medications: Active Outpatient Medications (including [...] A DAY . TAKE WITH FOOD. CC: [place] reports to clinic for complaints of left ankle pain. Subjective: [place] states he is having significant pain to left ankle. Reports history of arthritis in ankle states last time he had pain like this Dr. Garcia his wine steward/stewardess did a cortisone injection that improved pain. O/A: Left ankle tenderness and pain reported. No redness, swelling, or heat noted over joint. Limited range of motion due to pain with difficulty walking noted. Plan/ Intervention: Discussed with CHICHI Oliver. New prescription for medrol dose pack. Take as instructed. Immediate need form and prescription hand delivered to . Other conservative measures discussed such as elevation, rest, topical pain medications, ice/heat and support with wrap. RTC: As scheduled and as needed. Per A Directive 1605.06, wristband documentation: Patient wristband was removed and destroyed by (staff name) Eden Lynn RN and placed in the designated A.P [employer] bin. /stephanie/ EDEN CHRISTIANSON RN [facility] Signed: 04/09/2024 15:49 Receipt Acknowledged By: 04/09/2024 18:37 /stephanie/ VERNA [facility], ROLAND LYNN,EDEN Almonte [facility] ALEKS
--- OUTSIDE RECORDS SUMMARY | 2024-08-25 09:30 | XMS_ITS | Encounter Summary ---
Author Name [facility] [place] [facility] [place] [facility] [place] [place] Address [address] [place] [address] Care Team Providers Care Decal Maker Name Role Phone RAJWINDER OLIVER Primary Care Provider Unavail able Selected Encounter This section includes the information on record at [place] for the Encounter. Date/Time Encounter Type Encounter Description Reason Provider Source Aug 25, 2024 02:30 PM Outpatient Encounter PRIMARY CARE/MEDICINE ICD-10-CM Z00.00 Encntr for general adult medical exam w/o abnormal findings CHRISTIANO OLIVER E Encounter Template Text not used by [place] Assessments - Encounter Diagnoses This section includes the primary and secondary diagnoses documented for the Encounter. Date/Time Primary/Secondary Diagnosis Diagnosis Name Provider Source Aug 25, 2024 06:05 PM PRIMARY Encntr for general adult medical exam w/o abnormal findings CHRISTIANO OLIVER R [facility] Aug 25, 2024 06:05 PM SECONDARY Hyperlipidemia, unspecified CHRISTIANO OLIVER R [facility] Aug 25, 2024 06:05 PM SECONDARY Other secondary thrombocytopenia CHRISTIANO OLIVER R [facility] Aug 25, 2024 06:05 PM SECONDARY Sleep apnea, unspecified CHRISTIANO OLIVER R [facility] Aug 25, 2024 06:05 PM SECONDARY Unspecified osteoarthritis, unspecified site CHRISTIANO OLIVER [facility] Plan of Treatment: Future Appointments (+ 6 months) and Future Tests (+/- 45 days) The Plan of Treatment section includes future care activities for the patient from [facility] [place] [facility] This section includes future appointments and future orders which are active, pending or scheduled. Future Appointments This section includes appointments that were scheduled to occur 6 months from the date of the Encounter, up to a maximum of 20 appointments. The data comes from all [place] treatment facilities. Appointment Date/Time Appointment Type Appointme nt Facility Name October 22, 2024 10:30 AM AMBULATORY - MEDICINE [facility] October 27, 2024 02:30 PM AMBULATORY MEDICINE [facility] October 28, 2024 02:30 PM AMBULATORY MEDICINE [facility] Nov 27, 2024 12:45 PM AMBULATORY MEDICINE [facility] Nov 27, 2024 01:00 PM AMBULATORY MEDICINE [facility] Active, Pending, and Scheduled Orders This section includes a listing of several types of active, pending, and scheduled orders, including clinic medications orders, diagnostic test orders, procedure orders and consult orders; where the start date of the order is 45 days before the date of the Encounter or 45 days after the date of theEncounter. The data comes from all [facility]. Test Date/Time Test Type Test Details Facility Name Oct 06, 2024 12:00 AM Laboratory - Chemistry Order CBC BLOOD SP [facility] Lab Results: +/- 30 days of the encounter This section includes the Chemistry and Hematology Lab Results on record with [place] for the patient. Radiology Reports and Pathology Reports are provided separately, in subsequent sections. Lab Results This section contains the Chemistry/Hematology Results that were resulted 30 days before or 30 daysafter the date of the Encounter. Date/Time Source Result Type Result - Unit Interpretation Reference Range Specimen Type Comment Aug 25, 2024 03:44 PM [facility] KAPPA/LAMBDA LIGHT CHAINS, TOTAL (PB) SERUM S pecimen Type: SERUM Comment: This assay provides a measurement of the total kappa and total lambda light chains, ie., the amount of free (unattached) light chain in circulation and the amount of light chain linked to heavy chain in intact immunoglobulin molecules. Assays for serum free light chain only, kappa and lambda with ratio, may be more useful in evaluating and managing light chain gammo- pathies including those associated with myeloma, lymphoproliferative disorders, and amyloidosis. Test Performed by [facility] [place], [address] [place], [place] Jay Golden M.D., Ph.D., Director of Laboratories , CLIA [id number] Ordering Provider: RAJWINDER OLIVER Report Released Date/Time: Aug 25, 2024 03:35 PM Reporting Lab: [place] [facility] [address] [facility] [address] Performing Lab: [facility] [place] [id number] [facility] KAPPA/LAMBDA RATIO 2.35 1.29-2.55 KAPPA CHAINS (PB) 237 mg/dL 176-443 LAMBDA CHAINS (PB) 101 mg/dL 91-240 Aug 25, 2024 03:44 PM [facility] PROTEIN ELECTROPHORESIS BLOOD SERUM Specimen Type: SERUM Comment: No M Philipp detected. Reference Range: None Detected Normal Serum Protein Electrophoresis Pattern. No abnormal protein bands (M-protein) detected. Test Performed by [employer], [address] [place] [address] Jay Golden M.D., Ph.D., Director of Laboratories , CLIA [id number] Ordering Provider: RAJWINDER OLIVER Report Released Date/Time: Aug 25, 2024 03:35 PM Reporting Lab: [place] [facility] [address] [facility] [address] Performing Lab: [facility] [address] [facility] ALPHA-1 GLOBULIN(SO-PB-STL) 0.3 g/dL 0.2 -0.3 ALPHA-2 GLOBULIN(SO-PB-STL) 0.6 g/dL 0.5 -0.9 BETA 1 GLOBULIN(SO-PB-STL) 0.5 g/dL 0.4- 0.6 GAMMA GLOBULIN (SO-PB-STL) 0.8 g/dL 0.8- 1.7 TOTAL PROTEIN (SO-PB-STL) 7.3 g/dL 6.1-8 .1 ALBUMIN(ELECTROPHORESIS 4.8 g/dL 3.8-4.8 BETA 2 GLOBULIN (SO-PB) 0.4 g/dL 0.2-0.5 INTERPRETATION (STL-PB) SEE NOTE ABNORMAL PROTEIN BAND 1 (SO-PB-STL) SEE NOTE Aug 25, 2024 03:44 PM [facility] IRON/TIBC PROFILE SERUM Specimen Type: SERUM No comment entered. Ordering Provider: RAJWINDER OLIVER Report Released Date/Time: Aug 25, 2024 03:35 PM Reporting Lab: [place] [facility] [address] [place] [address] Performing Lab: [place] [facility] [address] [place] [address] TIBC 303 ug/dL TRANSFERRIN 242 mg/dL 163-344 IRON SATURATION 35 20-50 IRON 107 ug/dL 65-175 Aug 25, 2024 03:44 PM [facility] FERRITIN SERUM Specimen Typ e: SERUM No comment entered. Ordering Provider: RAJWINDER OLIVER Report Released Date/Time: Aug 25, 2024 03:35 PM Reporting Lab: [place] [facility] [address] [place] [address] Performing Lab: [place] [facility] [address] [place] [address] FERRITIN 559 ng/mL H 22-275 Aug 24, 2024 08:24 AM [facility] TESTOSTERONE, TOTAL (PB-MA) SERUM Specimen Ty pe: SERUM No comment entered. Ordering Provider: RAJWINDER OLIVER Report Released Date/Time: Aug 19, 2024 01:18 PM Reporting Lab: [place] [facility] [address] [place] [address] Performing Lab: [place] [facility] [address] [place] [address] TESTOSTERONE, TOTAL (PB-MA) 347 ng/dL 22 1.0-871.0 Aug 24, 2024 08:24 AM [facility] TSH (MA-PB) SERUM Specimen Typ e: SERUM No comment entered. Ordering Provider: RAJWINDER OLIVER Report Released Date/Time: Aug 19, 2024 01:18 PM Reporting Lab: [place] [facility] [address] [place] [address] Performing Lab: [place] [facility] [address] [place] [phone] TSH 3.227 u[IU]/mL 0.47-5 Aug 24, 2024 08:24 AM [facility] VITAMIN D, 25-HYDROXY SERUM Specimen Type: SE RUM No comment entered. Ordering Provider: RAJWINDER OLIVER Report Released Date/Time: Aug 19, 2024 01:18 PM Reporting Lab: [place] [facility] [address] [place] [address] Performing Lab: [place] [facility] [address] [place] [address] VITAMIN D, 25-HYDROXY 34.3 ng/mL 30-96 Aug 24, 2024 08:24 AM [facility] PROST. SPECIFIC AG.(PB-STL) SERUM Specimen Ty pe: SERUM No comment entered. Ordering Provider: RAJWINDER OLIVER Report Released Date/Time: Aug 19, 2024 01:18 PM Reporting Lab: [place] [facility] [address] [place] [address] Performing Lab: [place] [facility] [address] [place] [address] PROST. SPECIFIC AG.(PB-STL) 0.51 ng/mL 0 -4 Aug 24, 2024 08:24 AM [facility] URINALYSIS (STL-PB) URINE Specimen Type: URIN E No comment entered. Ordering Provider: RAJWINDER OLIVER Report Released Date/Time: Aug 19, 2024 01:18 PM Reporting Lab: [place] [facility] [address] [place] [address] Performing Lab: [place] [facility] [address] [place] [phone] URINE COLOR Yellow Yellow U.BILIRUBIN NEGATIVE mg/dL Negative U.PH 5.5 5.0-8.0 APPEARANCE CLEAR Clear U.NITRITE NEGATIVE mg/dL Negative URN.GLUCOSE NORMAL mg/dL Negative URN.PROTEIN NEGATIVE mg/dL URN.UROBILINOGEN NORMAL mg/dL Normal URN.BLOOD NEGATIVE mg/dL Negative-Trace URN.KETONES NEGATIVE mg/dL Negative-Trac e URN.LEUK.EST. NEGATIVE Negative-Trace URN.SPECIFIC GRAVITY 1.022 1.005-1.029 Aug 24, 2024 08:24 AM [facility] CBC BLOOD Specimen Type: BLOOD No comment entered. Ordering Provider: RAJWINDER OLIVER Report Released Date/Time: Aug 19, 2024 01:18 PM Reporting Lab: [facility] [address] [facility] [address] Performing Lab: [facility] [address] [facility] [address] WBC 5.4 10*3/uL 3.6-11.2 RBC 4.58 10*6/uL 4.10-5.70 HGB 14.6 g/dL 13.1-16.8 HCT 42.0 38.2-48.4 MCV 91.7 fL 80.0-100.0 MCH 31.9 pg 27.0-34.0 MCHC 34.8 g/dL 33.0-36.0 PLT 133 10*3/uL L 150-400 MPV 11.5 fL H 7.5-11.2 RDW 13.0 11.8-15.1 LYMPHOCYTES, AUTO % 31.2 MONOCYTES, AUTO % 11.9 NEUTROPHILS, AUTO % 54.8 EOSINOPHILS, AUTO % 0.7 BASOPHILS, AUTO % 0.7 LYMPHOCYTES, ABSOLUTE 1.68 10*3/uL 0.77- 4.50 MONOCYTES, ABSOLUTE 0.64 10*3/uL 0.19-0. 8 NEUTROPHILS, ABSOLUTE 2.95 10*3/uL 2.10- 8.00 EOSINOPHILS, ABSOLUTE 0.04 10*3/uL 0.00- 0.60 BASOPHILS, ABSOLUTE 0.04 10*3/uL 0.00-0. 20 IMMATURE PLT FRACTION 7.9 H 1.0-7.0 IMMATURE GRANS, AUTO % 0.7 IMMATURE GRANS, AUTO ABS 0.04 10*3/uL 0. 00-0.05 Aug 24, 2024 08:24 AM [facility] COMPREHENSIVE METABOLIC PANEL PLASMA Specimen Type: PLASMA Comment: LDL calculation invalid when Triglyceride exceeds 250 mg/dl Ordering Provider: RAJWINDER OLIVER Report Released Date/Time: Aug 19, 2024 01:18 PM Reporting Lab: [place] [facility] [address] [place] [address] Performing Lab: [place] [facility] [address] [place] [address] CREATININE 1.23 mg/dL 0.7-1.3 UREA NITROGEN 14 mg/dL 9-25 GLUCOSE 93 mg/dL 72-99 SODIUM 140 meq/L 136-145 POTASSIUM 4.0 meq/L 3.5-5 CHLORIDE 107 meq/L 98-107 CARBON DIOXIDE 22 meq/L 22-31 CALCIUM 9.4 mg/dL 8.4-10.4 PROTEIN 7.5 g/dL 6-8.6 ALBUMIN 4.9 g/dL 3.4-5 TOTAL BILIRUBIN 0.8 mg/dL 0.2-1.2 ALKALINE PHOSPHATASE 56 U/L 40-150 AST/SGOT 31 U/L 5-34 ALT/SGPT 49 U/L H 8-40 EGFR (CKD-EPI 2020) 76 Aug 24, 2024 08:24 AM [facility] CHOLESTEROL PANEL (PB) PLASMA Specimen Type: P LASMA Comment: LDL calculation invalid when Triglyceride exceeds 250 mg/dl Ordering Provider: RAJWINDER OLIVER Report Released Date/Time: Aug 19, 2024 01:18 PM Reporting Lab: [place] [facility] [address] [place] [address] Performing Lab: [place] [facility] [address] [place] [address] CHOLESTEROL 226 mg/dL H 0-200 TRIGLYCERIDE 390 mg/dL H 0-150 CALCULATED LDL comment mg/dL HDL(New) 46.0 mg/dL H >40 HDL % OF TOTAL CHOLESTEROL (PB) 20.4 >25 DIRECT LDL(MA) 130.3 mg/dL H 0-99.9 Aug 24, 2024 08:24 AM [facility] HGA1C BLOOD Specimen Type: BLOOD No comment entered. Ordering Provider: RAJWINDER OLIVER Report Released Date/Time: Aug 19, 2024 01:18 PM Reporting Lab: [place] [facility] [address] [place] [address] Performing Lab: [place] [facility] [address] [place] [address] HGA1C 5.2 4.0-6.0 Vital Signs: All taken on the encounter date This section contains inpatient and outpatient Vital Signs collected on the date of the Encounter. Date/Time Temperature Pulse Blood Pressure Respiratory Rate SP02 Pain Height Weight Body Mass Index Source Aug 25, 2024 02:52 PM 92 134/87 97 [facility] Aug 25, 2024 02:47 PM 95 151/96 16 96 222.5 30 [facility] Social History: Smoking Status (Most current) and Tobacco Use (All prior to encounter date) This section includes the most current, and the historical, smoking and tobacco- related health factors from the [place] facility where the Encounter took place. Current Smoking Status This section includes the most current smoking, or tobacco-related health factor, from the [place] facility where the Encounter took place. Date/Time Current Smoking Status Comment Facil ity October 16, 2023 08:30 AM VA-TOBACCO NEVER USED [facility] Tobacco Use History This section includes a history of the smoking, or tobacco-related health factors, that were collected on or before the date of the Encounter. The data comes from the [place] facility where the Encounter took place. Date/Time Smoking Status/Tobacco Use Comment F acility Aug 02, 2022 09:00 AM VA-TOBACCO NEVER USED [facility] Aug 14, 2021 11:00 AM VA-TOBACCO NEVER USED [facility] Jul 05, 2020 09:00 AM VA-TOBACCO FORMER USER [facility] Jul 05, 2020 09:00 AM VA-TOBACCO QUIT < 1 YEAR [facility] Dec 16, 2018 02:50 PM VA-TOBACCO FORMER USER [facility] Dec 16, 2018 02:50 PM VA-TOBACCO QUIT 5 TO < 15 YRS [facility] Feb 03, 2018 01:52 PM VA-TOBACCO FORMER USER [facility] Feb 03, 2018 01:52 PM VA-TOBACCO QUIT < 1 YEAR [facility] Apr 24, 2013 08:38 AM TOBACCO MEDS OFFERED BUT DECLINE D [facility] Apr 24, 2013 08:38 AM TOBACCO OFFERED PT MEDS (PROVIDE R) [facility] Apr 24, 2013 08:38 AM TOBACCO OFFERED STOP SMOKING CLI [facility] Jul 05, 2010 02:05 PM LIFETIME NON-USER OF TOBACCO [facility] Jul 06, 2009 11:32 AM CURRENT TOBACCO USER [facility] Jul 06, 2009 11:32 AM TOBACCO OFFERED STOP SMOKING CLI [facility] Encounter Notes: All associated encounter notes This section contains the clinical notes associated to the Encounter. Date/Time Encounter Note(s) Provider Source October 19, 2024 11:00 AM NURSING PROGRESS N OTE: LOCAL TITLE: NURSING NOTE PB STANDARD TITLE: NURSING PROGRESS NOTE DATE OF NOTE: OCTOBER 19, 2024@11:00 ENTRY DATE: OCTOBER 19, 2024@11:00:35 AUTHOR: JAIDA MARQUEZIGNER: URGENCY: STATUS: COMPLETED contacted clinic and advised that he noticed that his elbow had swelling approx. 4-5 days ago. [place] stated no trauma, no pain, just round and swelled on at the back of elbow. [place] advised that he put siding on his house a couple weeks ago and has been doing yard work. I advised that he can come in for a nurse Walkin to verify that he is experiencing Bursitis and resting the joint will help reduce swelling. advised to monitor for signs of infection. [place] advised that the fluid should reabsorb with rest; if it does not or shows signs of infection to report to the clinic for further evaluation. [place] voiced understanding. /stephanie/ Jaida Marquez RN [facility] Signed: 10/19/2024 11:07 Receipt Acknowledged By: 10/19/2024 16:42 /stephanie/ Rajwinder Oliver [facility], JAIDA [facility] Aug 25, 2024 03:03 PM PRIMARY CARE PROGR ESS NOTE: LOCAL TITLE: PRIMARY CARE CLINIC PROGRESS NOTE PB STANDARD TITLE: PRIMARY CARE PROGRESS NOTE DATE OF NOTE: AUG 25, 2024@15:03 ENTRY DATE: AUG 25, 2024@15:04:02 AUTHOR: RAJWINDER OLIVERIGNER: URGENCY: STATUS: COMPLETED PROVIDER ASSESSMENT DATE & TIME:Aug@15:04 CHIEF COMPLAINT: Annual physical and lab review. HISTORY OF PRESENT ILLNESS: [place] is being seen for his annual physical and lab review. denies any hospitalizations in the last year. He is over all healthy other than his RA. Veterans labs are reviewed and he has one liver enzyme that is slightly elevated and some thrombocytopenia. He states he has some fatigue. 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 This is most likely secondary to his autoimmune disorder but we will check some additional labs. Other than his hands turning a purple color when checked for capillary refill in the palms, he has no symptoms other than that. His triglycerides are elevated and he is encouraged to take fish oil over the counter. 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: 1) Arthritis of knee 2) Chronic back pain 3) Traumatic brain injury with loss of consciousness 4) HLD - Hyperlipidemia 5) Chronic post-traumatic stress disorder following combat 6) Legal problem 7) Insomnia 8) Nightmares associated with chronic post-traumatic stress disorder 9) Sleep Apnea ([facility] [id number]) 10) Actinic keratosis 11) Migraine without aura 12) Gout ([facility] [id number]) 13) Capsulitis 14) Simple renal cyst 15) Inflammatory arthritis Active Outpatient Medications (including Supplies): Active Outpatient Medications Status 1) FOLIC ACID 1MG TAB TAKE ONE TABLET BY MOUTH ONCE A DAY ACTIVE 2) IBUPROFEN 800MG TAB TAKE ONE TABLET BY MOUTH TWICE DAILY ACTIVE NEEDED TAKE WITH FOOD. 3) MELATONIN 5MG CAP/TAB TAKE TWO CAP/TAB BY MOUTH AT BEDTIME ACTIVE Indication: FOR SLEEP 4) METHOTREXATE NA 2.5MG TAB TAKE FIVE TABLETS BY MOUTH EVERY ACTIVE WEEK 5) PRAZOSIN HCL 5MG CAP TAKE ONE CAPSULE BY MOUTH AT BEDTIME ACTIVE MAY CAUSE DIZZINESS OR DROWSINESS. Indication: FOR NIGHTMARES 6) PREDNISONE 20MG TAB TAKE 1 OR 2 TABS TABLET(S) BY MOUTH ACTIVE EVERY DAY NEEDED FOR UP TO 7 DAYS. TAKE WITH FOOD. Indication: FOR JOINT PAIN FLARE 7) SULFASALAZINE 500MG TAB TAKE TWO TABLETS BY MOUTH TWICE A ACTIVE DAY TAKE WITH FOOD. REVIEW OF SYSTEMS: HEENT: No Headache. No blurry vision, vision loss, eye pain, red eyes, or foreign body. No runnynose, congestion, or nose bleed. No hearing loss,ringing in the ears, or vertigo. No sore throat or dental pain. RESPIRATORY: No cough, SOA, wheezing, or sputum production. CARDIOVASCULAR: No chest pain, palpitations, tachycardia, PND, or orthopnea. GI: No abdominal pain, nausea, vomiting, diarrhea, constipation, melena, or hematochezia. : No dysuria, hematuria, urinary frequency, weak stream, or post-void dribbling. MUSCULOSKELETAL:chronic joint pain. SKIN: No rash, lesions, or infection PSYCH: No Depression or Anxiety. Not suicidal. positive fatigue. PHYSICAL ASSESSMENT: VITAL SIGNS Pulse: 92 (08/25/2024 14:52) Blood Pressure: 134/87 (08/25/2024 14:52) Respiratory Rate: 16 (08/25/2024 14:47) Temperature: 97.6 F [36.4 C] (04/09/2024 15:01) Weight: 222.5 lb [100.92 kg] (08/25/2024 14:47) Height: 72 in [182.9 cm] (10/16/2023 08:47) Pain: 0 (10/16/2023 08:47) HEENT:PERRL, EOMI, Fundi benign, TM's clear, Pharynx not red and without exudate, tonsils normal size. NECK: Supple, no lymhadenopathy, thyroid normal. CARDIAC: Regular rate and rhythm without murmur. No edema. RESPIRATORY: CTA, BEBS GI: Abdomen soft,with ABS, no HSM, no guarding or rebound. MUSCULOSKELETAL:Chronic joint pain with no acute change. FROM. SKIN: [place] without rash or lesions. NEUROLOGICAL: The is alert and oriented without distress. Affect appropriate. IMPRESSION: Encounter for General Adult Medical Exam Thrombocytopendia-current Hyperlipidemia-current Rheumatoid Arthritis-chronic Sleep Apnea-chronic Insomnia-chronic PLAN: Increase water intake. Continue current medications. Will draw additional labs today regarding thrombocytopenia. Discussed differential diagnosis. Discussed diet and exercise. Start fish oil over the counter. RTC in one year or sooner if needed. Recheck cbc in 6 weeks. Patient is advised this primary care clinic [...] the After Visit Summary was reviewed with [place]; opportunity provided to report concerns and ask [...] appointments. Medications Reconciled. Time spent 30 minutes. /stephanie/ [facility] Signed: 08/25/2024 18:04 RAJWINDER OLIVER [facility] Aug 25, 2024 02:34 PM PRIMARY CARE NURSI ASAD NOTE: LOCAL TITLE: PRIMARY CARE NURSING PROGRESS NOTE (TEXT) NURSING P STANDARD TITLE: PRIMARY CARE NURSING NOTE DATE OF NOTE: AUG 25, 2024@14:34 ENTRY DATE: AUG 25, 2024@14:34:48 AUTHOR: JANICE GARNICA EXP COSIGNER: URGENCY: STATUS: COMPLETED Established Patient RICARDA LEGGETT IS A 39 YEAR OLD MALE BEING SEEN IN CLINIC AUG 25, 2024. == == REASON FOR VISIT: Here today for annual appointment. Are you receiving care any [facility] other than [facility]? No HEALTH AND SURGICAL HISTORY: Does patient report using home oxygen? No CURRENT ACTIVE MEDICATIONS FOR REVIEW: Allergies/ADRs (Tool #5) FACILITY ALLERGY/ADR -------- No Remote Allergy/ADR Data available for this patient [facility] No Known Allergies Med. Reconciliation (Tool #1) INCLUDED IN THIS LIST: Alphabetical list of active outpatient prescriptions dispensed from this [place] (local) and dispensed from another [place] or [facility] facility (remote) as well as inpatient orders (local pending and active), local clinic medications, locally documented non-VA medications, and local prescriptions that have or been discontinued in the past 90 days. Non-VA Meds Last Documented On: Data not found NOTE The display of VA prescriptions dispensed from another [place] or [facility] facility (remote) is limited to active outpatient prescription entries matched to National Drug File at the originating site and may not include some items such as investigational drugs, compounds, etc. NOT INCLUDED IN THIS LIST: Medications self-entered by the patient into personal health records (i.e. [employer]) are NOT included in this list. Non-VA medications documented outside this [place], remote inpatient orders (regardless of status) and remote clinic medications are NOT included in this list. The patient and provider must always discuss medications the patient is taking, regardless of where the medication was dispensed or obtained. OUTPT FOLIC ACID 1MG TAB (Status = Discontinued) TAKE ONE TABLET BY MOUTH ONCE A DAY Rx# [id number] Last Released: 04/22/24 Qty/Days Supply: 100/90 Rx Expiration Date: 04/15/25 Refills Remainin OUTPT FOLIC ACID 1MG TAB (Status = Active) TAKE ONE TABLET BY MOUTH ONCE A DAY Rx# [id number] Last Released: 08/21/24 Qty/Days Supply: 100/90 Rx Expiration Date: 08/18/25 Refills Remainin OUTPT IBUPROFEN 800MG TAB (Status = Discontinued) TAKE ONE TABLET BY MOUTH THREE TIMES A DAY NEEDED FOR PAIN TAKE WITH FOOD. Rx# [id number] Last Released: 10/22/23 Qty/Days Supply: 270/90 Rx Expiration Date: 10/16/24 Refills Remainin Indication: FOR PAIN OUTPT IBUPROFEN 800MG TAB (Status = Active) TAKE ONE TABLET BY MOUTH TWICE DAILY NEEDED TAKE WITH FOOD. Rx# [id number] Last Released: 08/21/24 Qty/Days Supply: 60/30 Rx Expiration Date: 09/16/24 Refills Remainin OUTPT MELATONIN 5MG CAP/TAB (Status = Active) TAKE TWO CAP/TAB BY MOUTH AT BEDTIME FOR SLEEP Rx# [id number] Last Released: 10/22/23 Qty/Days Supply: 180/90 Rx Expiration Date: 10/16/24 Refills Remainin Indication: FOR SLEEP OUTPT METHOTREXATE NA 2.5MG TAB (Status = Discontinued) TAKE FIVE TABLETS BY MOUTH EVERY WEEK Rx# [id number] Last Released: 04/20/24 Qty/Days Supply: 65/90 Rx Expiration Date: 04/16/25 Refills Remainin OUTPT METHOTREXATE NA 2.5MG TAB (Status = Active) TAKE FIVE TABLETS BY MOUTH EVERY WEEK Rx# [id number] Last Released: 08/20/24 Qty/Days Supply: 60/84 Rx Expiration Date: 08/18/25 Refills Remainin OUTPT PRAZOSIN HCL 5MG CAP (Status = Active) TAKE ONE CAPSULE BY MOUTH AT BEDTIME FOR NIGHTMARES MAY CAUSE DIZZINESS OR DROWSINESS. Rx# [id number] Last Released: 10/22/23 Qty/Days Supply: 90/90 Rx Expiration Date: 10/16/24 Refills Remainin Indication: FOR NIGHTMARES OUTPT PREDNISONE 20MG TAB (Status = Active) TAKE 1 OR 2 TABS TABLET(S) BY MOUTH EVERY DAY NEEDED FOR JOINT PAIN FLARE FOR UP TO 7 DAYS. TAKE WITH FOOD. Rx# [id number] Last Released: 04/22/24 Qty/Days Supply: Rx Expiration Date: 04/15/25 Refills Remainin Indication: FOR JOINT PAIN FLARE OUTPT SULFASALAZINE 500MG TAB (Status = Discontinued) TAKE TWO TABLETS BY MOUTH TWICE A DAY FOR ARTHRITIS WITH FOOD Rx# [id number] Last Released: 04/21/24 Qty/Days Supply: Rx Expiration Date: 04/15/25 Refills Remainin Indication: FOR ARTHRITIS OUTPT SULFASALAZINE 500MG TAB (Status = Active) TAKE TWO TABLETS BY MOUTH TWICE A DAY TAKE WITH FOOD. Rx# [id number] Last Released: 08/19/24 Qty/Days Supply: Rx Expiration Date: 08/18/25 Refills Remainin SUPPLIES PHARMACY TERMS AND POSSIBLE PATIENT ACTIONS INPT = [place] inpatient order IV = [place] intravenous medication OUTPT = [place] outpatient prescription PHARMACY POSSIBLE PATIENT TERMS EXPLANATION ACTIONS -------- ----- ACTIVE A prescription that can be If you have refills, filled at the local [place] pharmacy. you may request a refill of this prescription from your [place] pharmacy. CLINIC A medication you received during If you have questions a visit to a [place] clinic or about this medication emergency department. contact your [place] healthcare team. DISCONTINUED A prescription your provider has Contact your [place] stopped. It is no longer healthcare team if you available to be sent to you or need more of this picked up at the [place] pharmacy medication. window. A prescription which is [...] the [facility]. Or, it may be an guhz-uqf-wywmgkj (OTC), herbal, dietary supplements or sample medication. [...] before this medication now. you run out. Medication list reviewed with Patient Patient/Caregiver reports taking medications as ordered. IS PATIENT TAKING ANY OVER THE COUNTER MEDICATIONS, SUCH VITAMINS OR HERBAL SUPPLEMENTS, INCLUDING ANY MEDICATIONS PRESCRIBED BY ANOTHER PHYSICIAN? No Does patient have any new allergies to report since last visit? NO VITALS: TEMPERATURE: 97.6 F [36.4 C] (04/09/2024 15:01) BP: 132/78 (04/09/2024 15:01) RESP: 18 (04/02/2024 10:54) PULSE: 80 (04/09/2024 15:01) HT: 72 in [182.9 cm] (10/16/2023 08:47) WT: 212 lb [96.16 kg] (04/02/2024 10:54) BMI: 28.8 PAIN ASSESSMENT: (Most Recent Pain Score in [...] Now let us serve you. At the [facility], we strive to provide you with exceptional [...] Not At All SPIRITUAL ASSESSMENT: Are there holiness practices or spiritual concerns you want the seeing eye dog trainer, your physician, and other health care team members to immediately know about? No Patient advised to call the clinic for any concerns, questions, or symptoms. Patient and/or caregiver verbalized understanding of plan of care. COVID-19 Immunization - L,N,P,PH,U: Refused Moderna Monovalent COVID-19 vaccine Immunization: COVID-19 (MODERNA), MRNA, LNP-S, PF, 50 MCG/0.5 ML (AGES 12+ YEARS) Refusal Reason: PATIENT DECISION Patient refuses all immunization(s) in the COVID-19 group Date Documented: 08/25/24 14:44 Advanced Directive Screen/Manager Diabetes: ADVANCE DIRECTIVE SCREENING: I asked if the patient has an advance directive, and determined that: Patient has an Advance Directive. Patient does not wish to make any changes to the Advance Directive at this time. ADVANCE DIRECTIVE NOTIFICATION I provided the patient with written notification about advance directives. Level of understanding: Influenza Immunization - L,N,P,PH,U: Deferral / Refusal The patient declines to receive the recommended dose of seasonal influenza vaccine. Immunization: INFLUENZA, UNSPECIFIED FORMULATION Refusal Reason: PATIENT DECISION Patient refuses all immunization(s) in the FLU group Date Documented: 08/25/24 14:45 Td/Tdap Immunization - L,N,P,PH,U: The patient declines to receive the recommended dose of Td/Tdap vaccine. Immunization: TD(ADULT) UNSPECIFIED FORMULATION Refusal Reason: PATIENT DECISION Patient refuses all immunization(s) in the Td group Date Documented: 08/25/24 14:45 Pneumococcal Conjugate Vaccine (PCV15/PCV20/PCV21) - L,N,P,PH,U: Refuses PCV vaccine Immunization: PNEUMOCOCCAL CONJUGATE, UNSPECIFIED FORMULATION Refusal Reason: PATIENT DECISION Patient refuses all immunization(s) in the PneumoPCV group Date Documented: 08/25/24 14:46 Pain Assessment: - PAIN ASSESSMENT: .. Patient reports no pain at this visit. Pain Score = 0. Patient's self identified pain goal: 0 Herpes Zoster (Shingles) Vaccine - L,N,P,PH,U: The patient declines to receive the recommended dose of zoster (shingles) vaccine. Immunization: ZOSTER RECOMBINANT Refusal Reason: PATIENT DECISION Patient refuses all immunization(s) in the ZOSTER group Date Documented: 08/25/24 14:46 [facility] MAP: PERSONAL HEALTH PLAN INVENTORY & MAP 's Response: family /es/ JANICE GARNICA LPN Signed: 08/25/2024 14:46 JANICE GARNICA [facility]
--- OUTSIDE RECORDS SUMMARY | 2024-10-27 09:30 | XMS_ITS | Encounter Summary ---
Author Name [facility] [place] [facility] [place] Address [address] [place] [address] Care Team Providers Care Beater Head Name Role Phone RAJWINDER OLIVER Primary Care Provider Unavail able Selected Encounter This section includes the information on record at [place] for the Encounter. Date/Time Encounter Type Encounter Description Reason Provider Source October 27, 2024 02:30 PM OFF/OP EST OCTOBER X REQ PHY/QHP PRIMARY CARE/MEDICINE ICD-10-CM M54.50 Low back pain, unspecified CUSTRED,EDEN J IHE Encounter Template Text not used by [place] Assessments - Encounter Diagnoses This section includes the primary and secondary diagnoses documented for the Encounter. Date/Time Primary/Secondary Diagnosis Diagnosis Name Provider Source October 27, 2024 03:28 PM PRIMARY Low back pain, unspecified CUSTRED,EDEN J [facility] Plan of Treatment: Future Appointments (+ 6 [...] 20 appointments. The data comes from all [place] treatment facilities. Appointment Date/Time Appointment Type Appointme nt Facility Name October 28, 2024 02:30 PM AMBULATORY - MEDICINE [facility] [place] [facility] Nov 27, 2024 12:45 PM AMBULATORY - MEDICINE [facility] Nov 27, 2024 01:00 PM [facility]IC[place] [facility] Active, Pending, and Scheduled Orders This section includes a listing of several types of active, pending, and scheduled orders, including clinic medications orders, diagnostic test orders, procedure orders and consult orders; where the start date of the order is 45 days before the date of the Encounter or 45 days after the date of theEncounter. The data comes from all [place] treatment facilities. Test Date/Time Test Type Test Details Facility Name Oct 06, 2024 12:00 AM Laboratory - Chemistry Order CBC BLOOD SP [facility] Vital Signs: All taken on the encounter date This section contains inpatient and outpatient Vital Signs collected on the date of the Encounter. Date/Time Temperature Pulse Blood Pressure Respiratory Rate SP02 Pain Height Weight Body Mass Index Source October 27, 2024 03:16 PM 98 90 138/81 [facility] Social History: Smoking Status (Most current) and Tobacco Use (All prior to encounter date) This section includes the most current, and the historical, smoking and tobacco- related health factors from the [place] facility where the Encounter took place. Current Smoking Status This section includes the most current smoking, or tobacco-related health factor, from the [place] facility where the Encounter took place. Date/Time Current Smoking Status Comment Facil ity October 16, 2023 08:30 AM VA-TOBACCO NEVER USED [facility] Tobacco Use History This section includes a history of the smoking, or tobacco-related health factors, that were collected on or before the date of the Encounter. The data comes from the [place] facility where the Encounter took place. Date/Time Smoking Status/Tobacco Use Comment F acility Aug 02, 2022 09:00 AM VA-TOBACCO NEVER USED [facility] [place] [facility] Aug 14, 2021 11:00 AM VA-TOBACCO NEVER USED [facility] [place] [facility] Jul 05, 2020 09:00 AM VA-TOBACCO FORMER USER [facility] [place] [facility] Jul 05, 2020 09:00 AM VA-TOBACCO QUIT < 1 YEAR [facility] Dec 16, 2018 02:50 PM VA-TOBACCO FORMER USER [facility] Dec 16, 2018 02:50 PM VA-TOBACCO QUIT 5 TO < 15 YRS [facility] Feb 03, 2018 01:52 PM VA-TOBACCO FORMER USER [facility] Feb 03, 2018 01:52 PM VA-TOBACCO QUIT < 1 YEAR [facility] Apr 24, 2013 08:38 AM TOBACCO MEDS OFFERED BUT DECLINE D [facility] Apr 24, 2013 08:38 AM TOBACCO OFFERED PT MEDS (PROVIDE R) [facility] Apr 24, 2013 08:38 AM TOBACCO OFFERED STOP SMOKING CLI [facility] Jul 05, 2010 02:05 PM LIFETIME NON-USER OF TOBACCO [facility] Jul 06, 2009 11:32 AM CURRENT TOBACCO USER [facility] Jul 06, 2009 11:32 AM TOBACCO OFFERED STOP SMOKING CLI [facility] Radiology Reports: +/- 30 days of the encounter Radiology Reports For cases when an order for radiology services may have been completed prior to the date of the Encounter, the report list includes the Radiology Reports that were completed up to 30 days before dateof the Encounter. For cases when an order for radiology services may have been completed after the date of the Encounter, the report list also includes the Radiology Reports that were completed up to30 days after date of the Encounter. The data comes from all [place] treatment facilities. Date/Time Radiology Report Provider Source October 27, 2024 02:56 PM SPINE THORACIC 2 V IEWS: RICARDA LEGGETT ROSELYN [id number] -1985 M Exm Date: OCTOBER 27, 2024@14:56 Req Phys: RAJWINDER OLIVER Pat Loc: [facility] (Req'g Img Loc: [facility] Service: [place] [address] (Case [id number] COMPLETE) SPINE THORACIC 2 VIEWS (RAD Detailed) CPT:92179 Reason for Study: mid back pain Clinical History: Report Status: Verified Date Reported: OCTOBER 28, 2024 Date Verified: OCTOBER 28, 2024 Web Producer E-Sig: Report: AP, lateral and swimmer's views of the thoracic spine reveal mild degenerative skeletal changes with minimal disc disease at multiple levels. There is no appreciable acute osseous or adjacent soft tissue abnormality. Impression: No acute process Primary Interpreting Staff: CONRAD BOYKIN, RADIOLOGIST (Web Producer, no e-sig) /CONRAD Chávez [facility] Encounter Notes: All associated encounter notes This section contains the clinical notes associated to the Encounter. Date/Time Encounter Note(s) Provider Source October 27, 2024 03:15 PM NURSING PROGRESS N OTE: LOCAL TITLE: NURSING NOTE PB STANDARD TITLE: NURSING PROGRESS NOTE DATE OF NOTE: OCTOBER 27, 2024@15:15 ENTRY DATE: OCTOBER 27, 2024@15:15:58 AUTHOR: EDEN LYNN EXP COSIGNER: URGENCY: STATUS: COMPLETED Blood Pressure: 138/81 Pulse: 90 Temperature: 98 F (36.7 C) Pulse Oximetry: 96% Active Outpatient Medications: Active Outpatient Medications (including Supplies): Active Outpatient Medications Status 1) FOLIC ACID 1MG TAB TAKE ONE TABLET BY MOUTH ONCE A DAY ACTIVE 2) METHOTREXATE NA 2.5MG TAB TAKE FIVE TABLETS BY MOUTH EVERY ACTIVE WEEK 3) PREDNISONE 20MG TAB TAKE 1 OR 2 TABS TABLET(S) BY MOUTH ACTIVE EVERY DAY NEEDED FOR UP TO 7 DAYS. TAKE WITH FOOD. Indication: FOR JOINT PAIN FLARE 4) SULFASALAZINE 500MG TAB TAKE TWO TABLETS BY MOUTH TWICE A ACTIVE DAY TAKE WITH FOOD. NKDA CC: Oriska presents to clinic with right sided mid back pain. Subjective: Oriska states he has been having pain and stiffness to back for last few days. Reports he had done a wood project but did not do any heavy lifting. Denies trauma or known cause of pain. O/A: is alert and oriented. Respirations easy and non-labored. Mid back pain reported with noted muscle tension to right of spine just below where ribs end. No redness, swelling, or palpated warmth to area. Range of motion decreased due to pain. Plan/ Intervention: Discussed with PACT CHICHI Oliver. X-ray to thoracic spine with results pending. New prescription for Medrol dose pack and immediate need form hand delivered to to present to pharmacy. Toradol injection left dorsogluteal in clinic. Educated to apply heat or ice PRN, rest, may use OTC topical pain relieving cream of choice, and may use Tylenol as needed. Reports understanding. RTC: As scheduled or as needed. Per [facility] Directive 1605.06, wristband documentation: Patient wristband was removed and destroyed by (staff name) Eden Lynn RN and placed in the designated [email or web address] bin. /stephanie/ EDEN CHRISTIANSON RN [facility] CBR[facility] Signed: 10/27/2024 15:27 Receipt Acknowledged By: 10/28/2024 21:00 /stephanie/ SHAORN Draper [place] [facility] TONY LOM[place]O
--- OUTSIDE RECORDS SUMMARY | 2024-10-28 09:30 | XMS_ITS | Encounter Summary ---
Author Name [facility] [place] [facility] [place] Address [address] [place] [address] Care Team Providers Care Supervisor Weaving Name Role Phone RAJWINDER OLIVER Primary Care Provider Unavail able Selected Encounter This section includes the information on record at [place] for the Encounter. Date/Time Encounter Type Encounter Description Reason Provider Source October 28, 2024 02:30 PM OFF/OP EST OCTOBER X REQ PHY/QHP PRIMARY CARE/MEDICINE ICD-10-CM M54.50 Low back pain, unspecified CUSTRED,GOPI J IHE Encounter Template Text not used by [place] Assessments - Encounter Diagnoses This section includes the primary and secondary diagnoses documented for the Encounter. Date/Time Primary/Secondary Diagnosis Diagnosis Name Provider Source October 28, 2024 03:56 PM PRIMARY Low back pain, unspecified CUSTRED,GOPI J [facility] Plan of Treatment: Future Appointments [...] 20 appointments. The data comes from all [place] treatment facilities. Appointment Date/Time Appointment Type Appointme nt Facility Name Nov 27, 2024 12:45 PM AMBULATORY - MEDICINE [facility] [place] [facility] Nov 27, 2024 01:00 PM AMBULATORY - MEDICINE [facility] [place] [facility] Active, Pending, and Scheduled Orders This section includes a listing of several types of active, pending, and scheduled orders, including clinic medications orders, diagnostic test orders, procedure orders and consult orders; where the start date of the order is 45 days before the date of the Encounter or 45 days after the date of theEncounter. The data comes from all [place] treatment facilities. Test Date/Time Test Type Test Details Facility Name Oct 06, 2024 12:00 AM Laboratory - Chemistry Order CBC BLOOD SP [facility] Vital Signs: All taken on the encounter date This section contains inpatient and outpatient Vital Signs collected on the date of the Encounter. Date/Time Temperature Pulse Blood Pressure Respiratory Rate SP02 Pain Height Weight Body Mass Index Source October 28, 2024 03:37 PM 97.7 78 137/88 [facility] Social History: Smoking Status (Most current) and Tobacco Use (All prior to encounter date) This section includes the most current, and the historical, smoking and tobacco- related health factors from the [facility] facility where the Encounter took place. Current Smoking Status This section includes the most current smoking, or tobacco-related health factor, from the [facility] facility where the Encounter took place. Date/Time Current Smoking Status Comment Facil ity October 16, 2023 08:30 AM VA-TOBACCO NEVER USED [facility] Tobacco Use History This section includes a history of the smoking, or tobacco-related health factors, that were collected on or before the date of the Encounter. The data comes from the [place] facility where the Encounter took place. Date/Time [...] VA-TOBACCO QUIT 5 TO < 15 YRS [facility] Feb 03, 2018 01:52 PM VA-TOBACCO FORMER USER [facility] Feb 03, 2018 01:52 PM VA-TOBACCO QUIT < 1 YEAR [facility] Apr 24, 2013 08:38 AM TOBACCO MEDS OFFERED BUT DECLINE D [facility] Apr 24, 2013 08:38 AM TOBACCO OFFERED PT MEDS (PROVIDE R) [facility] Apr 24, 2013 08:38 AM TOBACCO OFFERED STOP SMOKING CLI [facility] Jul 05, 2010 02:05 PM LIFETIME NON-USER OF TOBACCO [facility] Jul 06, 2009 11:32 AM CURRENT TOBACCO USER [facility] Jul 06, 2009 11:32 AM TOBACCO OFFERED STOP SMOKING CLI [facility] Radiology Reports: +/- 30 days of the [...] the Encounter. The data comes from all [place] treatment facilities. Date/Time Radiology Report Provider Source Nov 27, 2024 01:04 PM ELBOW,RIGHT,2 VIEW S: RICARDA LEGGETT [id number] -1985 M Exm Date: NOV 27, 2024@13:04 Req Phys: LISA REARDON E III Pat Loc: [facility] (Req'g Img Loc: [facility] Service: [place] [address] (Case [id number] COMPLETE) ELBOW,RIGHT,2 VIEWS (RAD Detailed) CPT:73814 Reason for Study: Pain x 2 months Clinical History: Report Status: Verified Date Reported: NOV 27, 2024 Date Verified: NOV 27, 2024 Security Investigator E-Sig: Report: 2 views of the right elbow reveal no acute osseous or adjacent soft tissue abnormality. Impression: No acute process Primary Interpreting Staff: CONRAD BOYKIN, RADIOLOGIST (Security Investigator, no e-sig) /rld LUCRETIA,CONRAD L [facility] October 27, 2024 02:56 PM SPINE THORACIC 2 V IEWS: RICARDA LEGGETT [id number] -1985 M Exm Date: OCTOBER 27, 2024@14:56 Req Phys: OLIVERRAJWINDER R Pat Loc: [facility] (Req'g Img Loc: [facility] Service: [place] [address] (Case [id number] COMPLETE) SPINE THORACIC 2 VIEWS (RAD Detailed) CPT:80430 Reason for Study: mid back pain Clinical History: Report Status: Verified Date Reported: OCTOBER 28, 2024 Date Verified: OCTOBER 28, 2024 Security Investigator E-Sig: Report: AP, lateral and swimmer's views of the thoracic spine reveal mild degenerative skeletal changes with minimal disc disease at multiple levels. There is no appreciable acute osseous or adjacent soft tissue abnormality. Impression: No acute process Primary Interpreting Staff: CONRAD BOYKIN, RADIOLOGIST (Security Investigator, no e-sig) /CONRAD Chávez [facility] Encounter Notes: All associated encounter notes This section contains the clinical notes associated to the Encounter. Date/Time Encounter Note(s) Provider Source October 28, 2024 03:36 PM NURSING PROGRESS N OTE: LOCAL TITLE: NURSING NOTE STANDARD TITLE: NURSING PROGRESS NOTE DATE OF NOTE: OCTOBER 28, 2024@15:36 ENTRY DATE: OCTOBER 28, 2024@15:36:44 AUTHOR: GOPI GONZALEZ EXP COSIGNER: URGENCY: STATUS: COMPLETED Blood Pressure: 137/88 Pulse: 78 Temperature: 97.7 F (36.5 C) Pulse Oximetry: 98% Active Outpatient Medications: [...] TWICE A ACTIVE DAY TAKE WITH FOOD. CC: returns to clinic with back pain. Subjective: Mcbee returns to clinic stating yesterdays intervention had improved his pain tremendously but over past few hours pain has returned at level it was before. Denies any new symptoms. Pain is thoracic area just below ribs. Right greater than left side pain. O/A: Mcbee alert and oriented. Back assessment done no redness, swelling, or warmth. Muscle tension not noted today. Range of motion continues to be decreased due to pain. No numbness or radiating pain. Plan/ Intervention: Discussed with CHICHI Oliver. has requested repeat torodol injection. Torodol ordered and given. Mcbee educated on conservative treatment ice/heat, topical pain relievers, and OTC tylenol. has started medrol dose pack, continue as ordered. Take prescribed ibuprofen PRN pain. New prescription today for Flexeril PRN. immediate need form and new RX hand delivered to . encouraged to also follow up with rheumatology provider as pain may be related to his rheumatoid condition. states understanding of all instructions. RTC: As scheduled and as needed. Discussed x-ray with with understanding. SPINE THORACIC 2 VIEWS Exm Date: OCTOBER 27, 2024@14:56 Req Phys: RAJWINDER OLIVER Loc: [facility] (Req'g Img Loc: [facility] Service: [place] [address] (Case [id number] COMPLETE) SPINE THORACIC 2 VIEWS (RAD Detailed) CPT:76426 Reason for Study: mid back pain Clinical History: Report Status: Verified Date Reported: OCTOBER 28, 2024 Date Verified: OCTOBER 28, 2024 Security Investigator E-Sig: Report: AP, lateral and swimmer's views of the thoracic spine reveal mild degenerative skeletal changes with minimal disc disease at multiple levels. There is no appreciable acute osseous or adjacent soft tissue abnormality. Impression: No acute process Primary Interpreting Staff: CONRAD BOYKIN, RADIOLOGIST (Security Investigator, no e-sig) /rld Select an imaging exam... /es/ GOPI CHRISTIANSON, RN [facility] Signed: 10/28/2024 15:55 Receipt Acknowledged By: 10/28/2024 21:00 /stephanie/ THEE [facility],GOPI [employer] [facility]
--- OUTSIDE RECORDS SUMMARY | 2024-11-27 08:00 | XMS_ITS | Encounter Summary ---
Author Name [facility] Address [address] [place] [address] Care Team Providers Care Sterile Technician Name Role Phone RAJWINDER OLIVER Primary Care Provider Unavail able Selected Encounter This section includes the information on record at NH for the Encounter. Date/Time Encounter Type Encounter Description Reason Provider Source Nov 27, 2024 01:00 PM OFF/OP EST OCTOBER X REQ PHY/QHP PRIMARY CARE/MEDICINE ICD-10-CM M25.521 Pain in right elbow CINDY MARQUEZ Elia Encounter Template Text not used by [place] Assessments - Encounter Diagnoses This section includes the primary and secondary diagnoses documented for the Encounter. Date/Time Primary/Secondary Diagnosis Diagnosis Name Provider Source Nov 27, 2024 01:17 PM PRIMARY Pain in right elbow CINDY MARQUEZ [facility] Vital Signs: All taken on the encounter date This section contains inpatient and outpatient Vital Signs collected on the date of the Encounter. Date/Time Temperature Pulse Blood Pressure Respiratory Rate SP02 Pain Height Weight Body Mass Index Source Nov 27, 2024 12:56 PM 98.4 F 89 /min 136/86 mm[Hg] 18 /min 98 % 220.4 lb 30 [facility] Social History: Smoking Status (Most current) and Tobacco Use (All prior to encounter date) This section includes the most current, and the historical, smoking and tobacco- related health factors from the [place] facility where the Encounter took place. Current Smoking Status This section includes the most current smoking, or tobacco-related health factor, from the NH facility where the Encounter took place. Date/Time Current Smoking Status Comment Facil ity October 16, 2023 08:30 AM VA-TOBACCO NEVER USED [facility] Tobacco Use History This section includes a history of the smoking, or tobacco-related health factors, that were collected on or before the date of the Encounter. The data comes from the [place] facility where the Encounter took place. Date/Time Smoking Status/Tobacco Use Comment F acility Aug 02, 2022 09:00 AM VA-TOBACCO NEVER USED [facility] Aug 14, 2021 11:00 AM VA-TOBACCO NEVER USED [facility] Jul 05, 2020 09:00 AM VA-TOBACCO FORMER USER [facility] Jul 05, 2020 09:00 AM VA-TOBACCO QUIT < 1 YEAR [facility] Dec 16, 2018 02:50 PM VA-TOBACCO FORMER USER [facility] Dec 16, 2018 02:50 PM VA-TOBACCO QUIT 5 TO < 15 YRS [facility] Feb 03, 2018 01:52 PM VA-TOBACCO FORMER USER [facility] Feb 03, 2018 01:52 PM VA-TOBACCO QUIT < 1 YEAR [facility] Apr 24, 2013 08:38 AM TOBACCO MEDS OFFERED BUT DECLINE D [facility] Apr 24, 2013 08:38 AM TOBACCO OFFERED PT MEDS (PROVIDE R) [facility] Apr 24, 2013 08:38 AM TOBACCO OFFERED STOP SMOKING CLI SAGAR [facility] Jul 05, 2010 02:05 PM LIFETIME NON-USER OF TOBACCO [facility] Jul 06, 2009 11:32 AM CURRENT TO[facility]ACCO USER [facility] Jul 06, 2009 11:32 AM TOBACCO OFFERED STOP SMOKING CLI SAGAR [facility] Radiology Reports: +/- 30 days of the [...] the Encounter. The data comes from all [place] treatment facilities. Date/Time Radiology Report Provider Source Nov 27, 2024 01:04 PM ELBOW,RIGHT,2 VIEW S: PETER GONZALEZ [id number] -[id number] M Exm Date: NOV 27, 2024@13:04 Req Phys: LISA DARBY III Pat Loc: PB-CHRISTA PACT ANTONELLA LINDSEY (Req'g Img Loc: PB-XRAY WANTAGH Service: [place] [address] (Case [id number] COMPLETE) ELBOW,RIGHT,2 VIEWS (RAD Detailed) CPT:40558 Reason for Study: Pain x 2 months Clinical History: Report Status: Verified Date Reported: NOV 27, 2024 Date Verified: NOV 27, 2024 Silver Cleaner E-Sig: Report: 2 views of the right elbow reveal no acute osseous or adjacent soft tissue abnormality. Impression: No acute process Primary Interpreting Staff: CONRAD BOYKIN RADIOLOGIST (Silver Cleaner, no e-sig) /CONRAD Ch[facility]vez [facility] Encounter Notes: All associated encounter notes This section contains the clinical notes associated to the Encounter. Date/Time Encounter Note(s) Provider Source Nov 27, 2024 01:45 PM PHYSICIAN LETTERS: LOCAL TITLE: TEST RESULT GENERAL LETTER ST STANDARD TITLE: PHYSICIAN LETTERS DATE OF NOTE: NOV 27, 2024@13:45 ENTRY DATE: NOV 27, 2024@13:45:09 AUTHOR: LISA DARBY III EXP COSIGNER: URGENCY: STATUS: COMPLETED [facility] [address] [place] [address] NOV 27, 2024 PETER GONZALEZ [id number] [address] Dear Peter Gonzalez, I would like to update you on your recent test results. OTHER TEST RESULTS RADIOLOGY (NON-INVASIVE TEST RESULTS): Report: 2 views of the right elbow reveal no acute osseous or adjacent soft tissue abnormality. Impression: No acute process FUTURE APPOINTMENTS: 08/25/2025 14:30 SHANNON BERMAN NP [facility] Sincerely, MD KRISTIAN RUBIO III [facility] PETER GONZALEZ HOMER E III [facility] Nov 27, 2024 12:58 PM NURSING PROGRESS N OTE: LOCAL TITLE: NURSING NOTE PB STANDARD TITLE: NURSING PROGRESS NOTE DATE OF NOTE: NOV 27, 2024@12:58 ENTRY DATE: NOV 27, 2024@12:58:30 AUTHOR: JAIDA MARQUEZ COSIGNER: URGENCY: STATUS: COMPLETED This is a 39 year old MALE with known Allergies as noted: Patient has answered NKA C/C: Right elbow pain S: advised that he has noticed for 2 months pain in his right elbow that comes and goes. This week the pain in the outer right side of right elbow has gotten worse if he is going to picker something. [place] stated that he is on methotrexate and prednisone for arthritis pain but it is not helping current pain. stated that he has not injured the arm in anyway. On the following Active Medications: Active Outpatient Medications (including Supplies): Active Outpatient Medications Status === 1) FOLIC ACID 1MG TAB TAKE ONE [...] TWICE A ACTIVE DAY TAKE WITH FOOD. O: ambulated into the clinic without assistance. Steady gait. Alert and oriented x4. Unlabored breathing. Right lateral portion of elbow red, warm, and swollen. A/P: Escalated to Provider Dr. Darby for further evaluation and treatment. RTC: as needed /stephanie/ ALYSSIA [facility], P [facility] Signed: 11/27/2024 13:17 JAIDA MARQUEZ [facility]
--- OUTSIDE RECORDS SUMMARY | 2024-12-06 11:42 | XMS_ITS | Continuity of Care Document ---
Author Name [facility] Organization [facility] Care Team Providers Care Manager Behavioral Name Role Phone [facility] Unavailable Unavailable Problems Combined list of problems from Department of Defense and Veterans Affairs facilities. It does not include entries that were removed or entered in error. Problem Status Onset Date Problem Type Date of Resolution Comments Source Actinic keratosis Active Condition [place] [facility] Arthritis of knee Active Condition [place] 2022 Entered By: CLAU MARES Comment: right followed by rheumatology [place] [facility] Capsulitis Active Condition October 10 Entered By: CLAU MARES Comment: left ankle [place] [facility] Chronic back pain Active Condition [facility] Chronic post-traumatic stress disorder following combat Active Condition [place] [facility] Gout (SCT 19945339) Active Condition [place] [facility] HLD - Hyperlipidemia Active Condition [place] [facility] Inflammatory arthritis Active Condition Sep 11, 2023 Entered By: CLAU MARES Comment: Left ankle [place] [facility] Insomnia Active Condition [facility] Legal problem Active Condition [place] [facility] Migraine without aura Active Condition [place] [facility] Nightmares associated with chronic post-traumatic stress disorder Active Condition [place] [facility] Secondary autoimmune thrombocytopenia Active Condition [facility] Simple renal cyst Active Condition [place] [facility] Sleep Apnea (SCT 07614272) Active Condition [place] [facility] Traumatic brain injury with loss of consciousness Active Condition [place] [facility] Acute upper respiratory infections of unspecified site (ICD-9-CM 465.9) Inactive Condition 05/20/2016 [facility] Laboratory Examination Ordered as part of a Routine General Medical Examination Inactive Condition 05/20/2016 [facility] Laboratory test result abnormal Inactive Condition 05/20/2016 [place] [facility] Other Unspecified Counseling (ICD-9-CM V65.40) Inactive Condition 05/20/2016 [facility] Routine General Medical Examination at a Health Care Facility * (ICD-9-CM V70.0) Inactive Condition 05/20/2016 [place] [facility] Screening for Diabetes Mellitus (ICD-9-CM V77.1) Inactive Condition 05/20/2016 [facility] Screening for Lipoid disorders (ICD-9-CM V77.91) Inactive Condition 05/20/2016 [facility] Screening for Thyroid Disorders (ICD-9-CM V77.0) Inactive Condition 05/20/2016 [facility] Tobacco user (SNOMED CT [id number]) Inactive Condition 07/05/2020 [facility] VACCIN FOR INFLUENZA Inactive Condition 05/20/2016 [facility] Diagnosis: ICD-10-CM M25.521 Pain in right elbow Active Diagnosis [facility] Diagnosis: ICD-10-CM M77.11 Lateral epicondylitis, right elbow Active Diagnosis [facility] Diagnosis: ICD-10-CM M54.50 Low back pain, unspecified Active Diagnosis [facility] Diagnosis: ICD-10-CM Z00.00 Encntr for general adult medical exam w/o abnormal findings Active Diagnosis [facility] Diagnosis: ICD-10-CM M25.572 Pain in left ankle and joints of left foot Active Diagnosis [facility] Diagnosis: ICD-10-CM R10.30 Lower abdominal pain, unspecified Active Diagnosis [facility] Diagnosis: ICD-10-CM M19.90 Unspecified osteoarthritis, unspecified site Active Diagnosis [facility] Diagnosis: ICD-10-CM R52 Pain, unspecified Active Diagnosis [facility] Diagnosis: ICD-10-CM S22.32XA Fracture of one rib, left side, init for clos fx Active Diagnosis [facility] Diagnosis: ICD-10-CM R07.82 Intercostal pain Active Diagnosis [facility] Medications Combined list of outpatient medications from Department of Defense and Veterans Affairs facilities.Medications provided include 1) outpatient medications from the last 15 months, and 2) patient-reported medications. Medication Details Route Status Patient Instructions Prescription Expires Prescription Number Last Dispense Date Ordering Provider Order Date Order Qty Source CYANOCOBALA MIN 1000MCG TAB TAKE ONE TABLET BY MOUTH ONCE A DAY FOR VITAMIN B12 SUPPLEME NTATION ORAL ACTIVE 11/28/2025 [id number] FLOWER REARDON III 2024 100 [place] [facility] FOLIC ACID 1MG TAB TAKE ONE TABLET BY MOUTH ONCE A DAY ORAL ACTIVE 08/18/2025 [id number] 5 SANDY GALLEGOS 2024 100 [place] [facility] FOLIC ACID 1MG TAB TAKE ONE TABLET BY MOUTH ONCE A DAY ORAL DISCONT INUED 04/15/2025 [id number] 4 SANDY GALLEGOS 2023 100 [place] [facility] FOLIC ACID 1MG TAB TAKE ONE TABLET BY MOUTH ONCE A DAY ORAL DISCONT INUED 12/09/2024 [id number] 4 SANDY GALLEGOS 2023 100 [place] [facility] FOLIC ACID 1MG TAB TAKE ONE TABLET BY MOUTH ONCE A DAY ORAL DISCONT INUED 08/06/2024 [id number] 4 SANDY GALLEGOS 2023 100 [place] [facility] IBUPROFEN 800MG TAB TAKE ONE TABLET BY MOUTH THREE TIMES A DAY NEEDED FOR PAIN TAKE WITH FOOD. ORAL DISCONT INUED 10/16/2024 [id number] 4 Mark OLIVER 2023 270 [place] [facility] IBUPROFEN 800MG TAB TAKE ONE TABLET BY MOUTH TWICE DAILY NEEDED TAKE WITH FOOD. ORAL 10/22/2024 [id number] 5 SANDY GALLEGOS 2024 60 [place] [facility] IBUPROFEN 800MG TAB TAKE ONE TABLET BY MOUTH TWICE DAILY NEEDED TAKE WITH FOOD. ORAL 09/16/2024 [id number] 5 SANDY GALLEGOS 2024 60 [place] [facility] MELATONIN 5MG CAP/TAB TAKE TWO CAP/TAB BY MOUTH AT BEDTIME FOR SLEEP ORAL 10/16/2024 [id number] 4 Mark OLIVER R 2023 180 [facility] METHOTREXAT E NA 2.5MG TAB TAKE FIVE TABLETS BY MOUTH EVERY WEEK ORAL ACTIVE 08/18/2025 [id number] 5 SANDY GALLEGOS 2024 60 [place] [facility] METHOTREXAT E NA 2.5MG TAB TAKE FIVE TABLETS BY MOUTH EVERY WEEK ORAL DISCONT INUED 04/16/2025 [id number] 4 SANDY GALLEGOS 2023 65 [place] [facility] METHOTREXAT E NA 2.5MG TAB TAKE FIVE TABLETS BY MOUTH EVERY WEEK FOR RHEUMATO ID ARTHRITI S. ORAL DISCONT INUED 12/09/2024 [id number] 4 SANDY GALLEGOS 2023 75 [place] [facility] METHOTREXAT E NA 2.5MG TAB TAKE TEN TABLETS BY MOUTH EVERY WEEK TAKE 5 TABLETS IN THE MORNING AND 5 TABLETS IN THE EVENING ON THE SAME DAY EACH WEEK ORAL DISCONT INUED 01/15/2024 [id number] 4 Mark OLIVER R 2023 120 [facility] METHOTREXAT E NA 2.5MG TAB TAKE TEN TABLETS BY MOUTH EVERY WEEK TAKE 5 TABLETS IN THE MORNING AND 5 TABLETS IN THE EVENING ON THE SAME DAY EACH WEEK ORAL DISCONT INUED 01/14/2024 [id number] 4 Mark OLIVER R 2023 120 [facility] PRAZOSIN HCL 5MG CAP TAKE ONE CAPSULE BY MOUTH AT BEDTIME FOR NIGHTMAR ES MAY CAUSE DIZZINES S OR DROWSINE SS. ORAL 10/16/2024 [id number] 4 Mark OLIVER 2023 90 [facility] PREDNISONE 20MG TAB TAKE 1 OR 2 TABS TABLET(S ) BY MOUTH EVERY DAY NEEDED FOR JOINT PAIN FLARE FOR UP TO 7 DAYS. TAKE WITH FOOD. ORAL ACTIVE 04/15/2025 [id number] 4 SANDY GALLEGOS 2023 30 [place] [facility] PREDNISONE 20MG TAB TAKE 1-2 TABLETS BY MOUTH ONCE A DAY NEEDED FOR ARTHRITI S/JOINT PAIN FLARE FOR 3-7 DAYS. TAKE WITH FOOD OR MILK. ORAL DISCONT INUED 12/09/2024 [id number] 4 SANDY GALLEGOS 2023 30 [place] [facility] PREDNISONE 20MG TAB TAKE TWO TABLETS BY MOUTH DIRECTED TAKE WITH FOOD OR MILK. ORAL DISCONT INUED 10/17/2024 [id number] 4 Mark OLIVER R 2023 30 [place] [facility] PREDNISONE 20MG TAB TAKE TWO TABLETS BY MOUTH DIRECTED TAKE WITH FOOD OR MILK. ORAL DISCONT INUED 04/02/2024 [id number] 4 SANDY GALLEGOS 2022 30 [place] [facility] SULFASALAZI NE 500MG TAB TAKE TWO TABLETS BY MOUTH TWICE A DAY TAKE WITH FOOD. ORAL ACTIVE 08/18/2025 [id number] 5 SANDY GALLEGOS 2024 360 [place] [facility] SULFASALAZI NE 500MG TAB TAKE TWO TABLETS BY MOUTH TWICE A DAY FOR ARTHRITI S WITH FOOD ORAL DISCONT INUED 04/15/2025 [id number] 4 SANDY GALLEGOS 2023 360 [place] [facility] SULFASALAZI NE 500MG TAB TAKE TWO TABLETS BY MOUTH TWICE A DAY . TAKE WITH FOOD. ORAL DISCONT INUED 12/09/2024 [id number] 4 SANDY GALLEGOS 2023 360 [place] [facility] SULFASALAZI NE 500MG TAB TAKE TWO TABLETS BY MOUTH TWICE A DAY TAKE WITH FOOD ORAL DISCONT INUED 10/17/2024 [id number] 4 Mark OLIVER R 2023 120 [place] [facility] SULFASALAZI NE 500MG TAB TAKE TWO TABLETS BY MOUTH TWICE A DAY TAKE WITH FOOD ORAL DISCONT INUED 08/06/2024 [id number] 4 SANDY GALLEGOS 2023 120 [facility] Immunizations Combined list of available immunizations from the Department of Defense and Veterans Affairs facilities. Immunization Series Date Given Administered By Site Reaction Lot Number CVX Code Drug Heavy Duty Mechanic Status Comments Source PNEUMOCOCCAL POLYSACCHARID E PPV23 2015 33 complet ed [facility] INFLUENZA, UNSPECIFIED FORMULATION 2012 88 complet ed [facility] TDAP 2012 115 complet ed Left Deltoid [facility] INFLUENZA, UNSPECIFIED FORMULATION 2011 88 complet ed [facility] TDAP 2 2009 115 complet ed HISTORICA L INFORMATI ON - FROM OTHER REGISTRY, [facility] TD (ADULT), 2 LF TETANUS TOXOID, PRESERVATIVE FREE, ADSORBED 1 1997 09 complet ed HISTORICA L INFORMATI ON - FROM OTHER REGISTRY, [facility] Results Combined list of recent chemistry, hematology and other laboratory results from Department of Defense and Veterans Affairs, ranging from 15 months to all on record, depending upon the facility. Order Name Results Value Reference Range Date Interpretation Specimen Comments Source KAPPA/GONCALVES BDA LIGHT CHAINS, TOTAL (PB) KAPPA LIGHT CHAINS.FREE /LAMBDA LIGHT CHAINS.FREE [MASS RATIO] IN SERUM 2.35 1.29 - 2.55 08/25 Specimen Type: SERUM Comment: This assay provides a measurement of the total kappa and total lambda light chains, ie., the amount of free (unattached ) light chain in circulation and the amount of light chain linked to heavy chain in intact immunoglobu neha molecules. Assays for serum free light chain only, kappa and lambda with ratio, may be more useful in evaluating and managing light chain gammo- pathies including those associated with myeloma, lymphoproli ferative disorders, and amyloidosis . Test Performed by [facility], [facility], [address] [place] [address] Jay Golden M.D., Ph.D., Director of Laboratorie s , CLIA [id number] Ordering Provider: SHELTON OLIVER Report Released Date/Time: Aug 25, 2024 03:35 PM Reporting Lab: [facility] [address] [facility] [place] [address] Performing Lab: [facility] [address] [facility] KAPPA/GONCALVES BDA LIGHT CHAINS, TOTAL (PB) KAPPA LIGHT CHAINS [MASS/VOLUM E] IN SERUM OR PLASMA 237 mg/dL 176 - 443 08/25 Specimen Type: SERUM Comment: This assay provides a measurement of the total kappa and total lambda light chains, ie., the amount of free (unattached ) light chain in circulation and the amount of light chain linked to heavy chain in intact immunoglobu neha molecules. Assays for serum free light chain only, kappa and lambda with ratio, may be more useful in evaluating and managing light chain gammo- pathies including those associated with myeloma, lymphoproli ferative disorders, and amyloidosis . Test Performed by [facility] [place], [facility], [address] [place] [address] Jay Golden M.D., Ph.D., Director of Laboratorie s , [place] [id number] Ordering Provider: SHELTON OLIVER Report Released Date/Time: Aug 25, 2024 03:35 PM Reporting Lab: [facility] [address] [facility] [address] Performing Lab: [facility] [id number] [place] [address] [facility] KAPPA/GONCALVES BDA LIGHT CHAINS, TOTAL (PB) LAMBDA LIGHT CHAINS [MASS/VOLUM E] IN SERUM OR PLASMA 101 mg/dL 91 - 240 08/25 Specimen Type: SERUM Comment: This assay provides a measurement of the total kappa and total lambda light chains, ie., the amount of free (unattached ) light chain in circulation and the amount of light chain linked to heavy chain in intact immunoglobu neha molecules. Assays for serum free light chain only, kappa and lambda with ratio, may be more useful in evaluating and managing light chain gammo- pathies including those associated with myeloma, lymphoproli ferative disorders, and amyloidosis . Test Performed by [facility], [address] [place] [address] Jay Golden M.D., Ph.D., Director of Laboratorie s , CLIA [id number] Ordering Provider: SHELTON OLIVER Report Released Date/Time: Aug 25, 2024 03:35 PM Reporting Lab: [place] [facility] [address] [place] [address] Performing Lab: [place] [id number] [place] [address] [facility] PROTEIN ELECTROPH ORESIS BLOOD ALPHA 1 GLOBULIN [MASS/VOLUM E] IN SERUM OR PLASMA BY ELECTROPHOR ESIS 0.3 g/dL 0.2 - 0.3 08/25 Specimen Type: SERUM Comment: No M Philipp detected. Reference Range: None Detected Normal Serum Protein Electrophor esis Pattern. No abnormal protein bands (M-protein) detected. Test Performed by [facility], [address] [place] [address] Jay Golden M.D., Ph.D., Director of Laboratorie s , CLIA [id number] Ordering Provider: SHELTON OLIVER Report Released Date/Time: Aug 25, 2024 03:35 PM Reporting Lab: [place] [facility] [address] [place] [address] Performing Lab: [place] [address] [facility] PROTEIN ELECTROPH ORESIS BLOOD ALPHA 2 GLOBULIN [MASS/VOLUM E] IN SERUM OR PLASMA BY ELECTROPHOR ESIS 0.6 g/dL 0.5 - 0.9 08/25 Specimen Type: SERUM Comment: No M Philipp detected. Reference Range: None Detected Normal Serum Protein Electrophor esis Pattern. No abnormal protein bands (M-protein) detected. Test Performed by [facility], [address] [place] [address] Jay Golden M.D., Ph.D., Director of Laboratorie s , CLIA [id number] Ordering Provider: SHELTON OLIVER Report Released Date/Time: Aug 25, 2024 03:35 PM Reporting Lab: [place] [facility] [address] [place] [address] Performing Lab: [place] [address] [facility] PROTEIN ELECTROPH ORESIS BLOOD BETA 1 GLOBULIN(SO -PB-STL) 0.5 g/dL 0.4 - 0.6 08/25 Specimen Type: SERUM Comment: No M Philipp detected. Reference Range: None Detected Normal Serum Protein Electrophor esis Pattern. No abnormal protein bands (M-protein) detected. Test Performed by [facility], [facility], [address] [place] [address] Jay Golden M.D., Ph.D., Director of Laboratorie s , CLIA [id number] Ordering Provider: SHELTON OLIVER Report Released Date/Time: Aug 25, 2024 03:35 PM Reporting Lab: [place] [facility] [address] [place] [facility] Performing Lab: [place] [address] [facility] PROTEIN ELECTROPH ORESIS BLOOD GAMMA GLOBULIN [MASS/VOLUM E] IN SERUM OR PLASMA BY ELECTROPHOR ESIS 0.8 g/dL 0.8 - 1.7 08/25 Specimen Type: SERUM Comment: No M Philipp detected. Reference Range: None Detected Normal Serum Protein Electrophor esis Pattern. No abnormal protein bands (M-protein) detected. Test Performed by [employer], [facility] [place], [address] [place] [address] Jay Golden M.D., Ph.D., Director of Laboratorie s , CLIA [id number] Ordering Provider: SHELTON OLIVER Report Released Date/Time: Aug 25, 2024 03:35 PM Reporting Lab: [place] [facility] [address] [place] [address] Performing Lab: [place] [address] [facility] PROTEIN ELECTROPH ORESIS BLOOD PROTEIN [MASS/VOLUM E] IN SERUM OR PLASMA 7.3 g/dL 6.1 - 8.1 08/25 Specimen Type: SERUM Comment: No M Philipp detected. Reference Range: None Detected Normal Serum Protein Electrophor esis Pattern. No abnormal protein bands (M-protein) detected. Test Performed by [employer], [facility] [place], [address] [place] [address] Jay Golden M.D., Ph.D., Director of Laboratorie s , CLIA [id number] Ordering Provider: SHELTON OLIVER Report Released Date/Time: Aug 25, 2024 03:35 PM Reporting Lab: [place] [facility] [address] [place] [facility] [place] [address] Performing Lab: [place] [address] [facility] PROTEIN ELECTROPH ORESIS BLOOD ALBUMIN [MASS/VOLUM E] IN SERUM OR PLASMA 4.8 g/dL 3.8 - 4.8 08/25 Specimen Type: SERUM Comment: No M Philipp detected. Reference Range: None Detected Normal Serum Protein Electrophor esis Pattern. No abnormal protein bands (M-protein) detected. Test Performed by [employer], [facility] [place], [address] [place] [address] Jay Golden M.D., Ph.D., Director of Laboratorie s , CLIA [id number] Ordering Provider: SHELTON OLIVER Report Released Date/Time: Aug 25, 2024 03:35 PM Reporting Lab: [place] [facility] [address] [place] [facility] [place] [address] Performing Lab: [place] [id number] [place] [address] [facility] PROTEIN ELECTROPH ORESIS BLOOD BETA 2 GLOBULIN (SO-PB) 0.4 g/dL 0.2 - 0.5 08/25 Specimen Type: SERUM Comment: No M Philipp detected. Reference Range: None Detected Normal Serum Protein Electrophor esis Pattern. No abnormal protein bands (M-protein) detected. Test Performed by [facility], [address] [place] [address] Jay Golden M.D., Ph.D., Director of Laboratorie s , CLIA [id number] Ordering Provider: SHELTON OLIVER Report Released Date/Time: Aug 25, 2024 03:35 PM Reporting Lab: [place] [facility] [address] [place] [address] Performing Lab: [place] [address] [facility] PROTEIN ELECTROPH ORESIS BLOOD INTERPRETAT ION (STL-PB) SEE NOTE 08/25 Specimen Type: SERUM Comment: No M Philipp detected. Reference Range: None Detected Normal Serum Protein Electrophor esis Pattern. No abnormal protein bands (M-protein) detected. Test Performed by [facility] [place], [address] [place] [address] Jay Golden M.D., Ph.D., Director of Laboratorie s , CLIA [id number] Ordering Provider: SHELTON OLIVER Report Released Date/Time: Aug 25, 2024 03:35 PM Reporting Lab: [place] [facility] [address] [place] [address] Performing Lab: [place] [address] [facility] PROTEIN ELECTROPH ORESIS BLOOD ABNORMAL PROTEIN BAND 1 (SO-PB-STL) SEE NOTE 08/25 Specimen Type: SERUM Comment: No M Philipp detected. Reference Range: None Detected Normal Serum Protein Electrophor esis Pattern. No abnormal protein bands (M-protein) detected. Test Performed by [facility] [place], [address] [place] [address] Jay Golden M.D., Ph.D., Director of Laboratorie s , CLIA [id number] Ordering Provider: SHELTON OLIVER Report Released Date/Time: Aug 25, 2024 03:35 PM Reporting Lab: [place] [facility] [address] [place] [address] Performing Lab: [place] [facility] [address] [place] [address]9983 [facility] IRON/TIBC PROFILE IRON BINDING CAPACITY [MASS/VOLUM E] IN SERUM OR PLASMA 303 ug/dL 08/25 Specimen Type: SERUM No comment entered. Ordering Provider: SHELTON OLIVER Report Released Date/Time: Aug 25, 2024 03:35 PM Reporting Lab: [place] [facility] [address] [place] [address] Performing Lab: [place] [facility] [address] [place] [address] [facility] IRON/TIBC PROFILE TRANSFERRIN [MASS/VOLUM E] IN SERUM OR PLASMA 242 mg/dL 163 - 344 08/25 Specimen Type: SERUM No comment entered. Ordering Provider: SHELTON OLIVER Report Released Date/Time: Aug 25, 2024 03:35 PM Reporting Lab: [place] [facility] [address] [place] [address] Performing Lab: [place] [facility] [address] [place] [address] [facility] IRON/TIBC PROFILE IRON SATURATION [MASS FRACTION] IN SERUM OR PLASMA 35 20 - 50 08/25 Specimen Type: SERUM No comment entered. Ordering Provider: SHELTON OLIVER Report Released Date/Time: Aug 25, 2024 03:35 PM Reporting Lab: [place] [facility] [address] [place] [address] Performing Lab: [place] [facility] [address] [place] [address] [facility] IRON/TIBC PROFILE IRON [MASS/VOLUM E] IN SERUM OR PLASMA 107 ug/dL 65 - 175 08/25 Specimen Type: SERUM No comment entered. Ordering Provider: SHELTON OLIVER Report Released Date/Time: Aug 25, 2024 03:35 PM Reporting Lab: [place] [facility] [address] [place] [address] Performing Lab: [place] [facility] [address] [place] [address] [facility] FERRITIN FERRITIN [MASS/VOLUM E] IN SERUM OR PLASMA 559 ng/mL 22 - 275 08/25 H Specimen Type: SERUM No comment entered. Ordering Provider: SHELTON OLIVER R Report Released Date/Time: Aug 25, 2024 03:35 PM Reporting Lab: [place] [facility] [address] [place] [address] Performing Lab: [place] [facility] [address] [place] [address] [facility] TESTOSTER ONE, TOTAL (PB-MA) TESTOSTERON E [MASS/VOLUM E] IN SERUM OR PLASMA 347 ng/dL 221.0 - 871.0 08/24 Specimen Type: SERUM No comment entered. Ordering Provider: SHELTON OLIVER R Report Released Date/Time: Aug 19, 2024 01:18 PM Reporting Lab: [place] [facility] [address] [place] [id number] Performing Lab: [place] [facility] [address] [place] [facility] [facility] TSH (MA-PB) THYROTROPIN [UNITS/VOLU ME] IN SERUM OR PLASMA 3.227 u[IU]/mL 0.47 - 5 08/24 Specimen Type: SERUM No comment entered. Ordering Provider: SHELTON OLIVER R Report Released Date/Time: Aug 19, 2024 01:18 PM Reporting Lab: [place] [facility] [address] [place] [id number] Performing Lab: [place] [facility] [address] [place] [address] [facility] VITAMIN D, 25-HYDROX Y 25-HYDROXYV ITAMIN D3 [MASS/VOLUM E] IN SERUM OR PLASMA 34.3 ng/mL 30 - 96 08/24 Specimen Type: SERUM No comment entered. Ordering Provider: SHELTON OLIVER Report Released Date/Time: Aug 19, 2024 01:18 PM Reporting Lab: [place] [facility] [address] [place] [address] Performing Lab: [place] [facility] [address] [place] [address] [facility] PROST. SPECIFIC AG.(PB-ST L) PROSTATE SPECIFIC AG [MASS/VOLUM E] IN SERUM OR PLASMA 0.51 ng/mL 0 - 4 08/24 Specimen Type: SERUM No comment entered. Ordering Provider: SHELTON OLIVER Report Released Date/Time: Aug 19, 2024 01:18 PM Reporting Lab: [place] [facility] [address] [place] [address] Performing Lab: [place] [facility] [address] [place] [address] [facility] URINALYSI S (STL-PB) COLOR OF URINE Yellow 08/24 Specimen Type: URINE No comment entered. Ordering Provider: SHELTON OLIVER Report Released Date/Time: Aug 19, 2024 01:18 PM Reporting Lab: [place] [facility] [address] [place] [id number] Performing Lab: [place] [facility] [address] [place] [address] [facility] URINALYSI S (STL-PB) BILIRUBIN.T OTAL [PRESENCE] IN URINE BY TEST STRIP NEGATIVE mg/dL 08/24 Specimen Type: URINE No comment entered. Ordering Provider: SHELTON OLIVER Report Released Date/Time: Aug 19, 2024 01:18 PM Reporting Lab: [place] [facility] [address] [place] [id number] Performing Lab: [place] [facility] [address] [place] [address] [facility] URINALYSI S (STL-PB) PH OF URINE BY TEST STRIP 5.5 5.0 - 8.0 08/24 Specimen Type: URINE No comment entered. Ordering Provider: SHELTON OLIVER R Report Released Date/Time: Aug 19, 2024 01:18 PM Reporting Lab: [place] [facility] [address] [place] [id number] Performing Lab: [place] [facility] [address] [place] [address] [facility] URINALYSI S (STL-PB) APPEARANCE OF URINE CLEAR 08/24 Specimen Type: URINE No comment entered. Ordering Provider: SHELTON OLIVER Report Released Date/Time: Aug 19, 2024 01:18 PM Reporting Lab: [place] [facility] [address] [place] [address] Performing Lab: [place] [facility] [address] [place] [address] [facility] URINALYSI S (STL-PB) NITRITE [PRESENCE] IN URINE BY TEST STRIP NEGATIVE mg/dL 08/24 Specimen Type: URINE No comment entered. Ordering Provider: SHELTON OLIVER Report Released Date/Time: Aug 19, 2024 01:18 PM Reporting Lab: [place] [facility] [address] [place] [id number] Performing Lab: [place] [facility] [address] [place] [address] [facility] URINALYSI S (STL-PB) GLUCOSE [MASS/VOLUM E] IN URINE BY TEST STRIP NORMALmg /dL 08/24 Specimen Type: URINE No comment entered. Ordering Provider: SHELTON OLIVER Report Released Date/Time: Aug 19, 2024 01:18 PM Reporting Lab: [place] [facility] [address] [place] [address] Performing Lab: [place] [facility] [address] [place] [address] [facility] URINALYSI S (STL-PB) PROTEIN [MASS/VOLUM E] IN URINE BY TEST STRIP NEGATIVE mg/dL 08/24 Specimen Type: URINE No comment entered. Ordering Provider: SHELTON OLIVER R Report Released Date/Time: Aug 19, 2024 01:18 PM Reporting Lab: [place] [facility] [address] [place] [address] Performing Lab: [place] [facility] [address] [place] [address] [facility] URINALYSI S (STL-PB) URN.UROBILI NOGEN NORMALmg /dL 08/24 Specimen Type: URINE No comment entered. Ordering Provider: SHELTON OLIVER Report Released Date/Time: Aug 19, 2024 01:18 PM Reporting Lab: [place] [facility] [address] [place] [address] Performing Lab: [place] [facility] [address] [place] [address] [facility] URINALYSI S (STL-PB) HEMOGLOBIN [MASS/VOLUM E] IN URINE BY TEST STRIP NEGATIVE mg/dL 08/24 Specimen Type: URINE No comment entered. Ordering Provider: SHELTON OLIVER Report Released Date/Time: Aug 19, 2024 01:18 PM Reporting Lab: [place] [facility] [address] [place] [address] Performing Lab: [place] [facility] [address] [place] [address] [facility] URINALYSI S (STL-PB) KETONES [MASS/VOLUM E] IN URINE BY TEST STRIP NEGATIVE mg/dL 08/24 Specimen Type: URINE No comment entered. Ordering Provider: SHELTON OLIVER Report Released Date/Time: Aug 19, 2024 01:18 PM Reporting Lab: [place] [facility] [address] [place] [address] Performing Lab: [place] [facility] [address] [place] [address] [facility] URINALYSI S (STL-PB) URN.LEUK.ES T. NEGATIVE 08/24 Specimen Type: URINE No comment entered. Ordering Provider: SHELTON OLIVER Report Released Date/Time: Aug 19, 2024 01:18 PM Reporting Lab: [place] [facility] [address] [place] [address] Performing Lab: [place] [facility] [address] [place] [address] [facility] URINALYSI S (STL-PB) SPECIFIC GRAVITY OF URINE 1.022 1.005 - 1.029 08/24 Specimen Type: URINE No comment entered. Ordering Provider: SHELTON OLIVER R Report Released Date/Time: Aug 19, 2024 01:18 PM Reporting Lab: [place] [facility] [address] [place] [address] Performing Lab: [place] [facility] [address] [place] [address] [facility] CBC LEUKOCYTES [#/VOLUME] IN BLOOD BY AUTOMATED COUNT 5.4 10*3/uL 3.6 - 11.2 08/24 Specimen Type: BLOOD No comment entered. Ordering Provider: SHELTON OLIVER R Report Released Date/Time: Aug 19, 2024 01:18 PM Reporting Lab: [place] [facility] [address] [place] [address] Performing Lab: [place] [facility] [address] [place] [address] [facility] CBC ERYTHROCYTE S [#/VOLUME] IN BLOOD BY AUTOMATED COUNT 4.58 10*6/uL 4.10 - 5.70 08/24 Specimen Type: BLOOD No comment entered. Ordering Provider: SHELTON OLIVER R Report Released Date/Time: Aug 19, 2024 01:18 PM Reporting Lab: [place] [facility] [address] [place] [address] Performing Lab: [place] [facility] [address] [place] [address] [facility] CBC HEMOGLOBIN [MASS/VOLUM E] IN BLOOD 14.6 g/dL 13.1 - 16.8 08/24 Specimen Type: BLOOD No comment entered. Ordering Provider: SHELTON OLIVER R Report Released Date/Time: Aug 19, 2024 01:18 PM Reporting Lab: [place] [facility] [address] [place] [address] Performing Lab: [place] [facility] [address] [place] [address] [facility] CBC HEMATOCRIT [VOLUME FRACTION] OF BLOOD 42.0 38.2 - 48.4 08/24 Specimen Type: BLOOD No comment entered. Ordering Provider: SHELTON OLIVER Report Released Date/Time: Aug 19, 2024 01:18 PM Reporting Lab: [place] [facility] [address] [place] [facility] Performing Lab: [place] [facility] [address] [place] [address] [facility] CBC MCV [ENTITIC VOLUME] BY AUTOMATED COUNT 91.7 fL 80.0 - 100.0 08/24 Specimen Type: BLOOD No comment entered. Ordering Provider: SHELTON OLIVER Report Released Date/Time: Aug 19, 2024 01:18 PM Reporting Lab: [place] [facility] [address] [place] [address] Performing Lab: [place] [facility] [address] [place] [address] [facility] CBC MCH [ENTITIC MASS] BY AUTOMATED COUNT 31.9 pg 27.0 - 34.0 08/24 Specimen Type: BLOOD No comment entered. Ordering Provider: SHELTON OLIVER R Report Released Date/Time: Aug 19, 2024 01:18 PM Reporting Lab: [place] [facility] [address] [place] [facility] Performing Lab: [place] [facility] [address] [place] [id number] [facility] CBC MCHC [MASS/VOLUM E] BY AUTOMATED COUNT 34.8 g/dL 33.0 - 36.0 08/24 Specimen Type: BLOOD No comment entered. Ordering Provider: SHELTON OLIVER R Report Released Date/Time: Aug 19, 2024 01:18 PM Reporting Lab: [place] [facility] [address] [place] [address] Performing Lab: [place] [facility] [address] [place] [facility] [facility] CBC PLATELETS [#/VOLUME] IN BLOOD BY AUTOMATED COUNT 133 10*3/uL 150 - 400 08/24 L Specimen Type: BLOOD No comment entered. Ordering Provider: SHELTON OLIVER R Report Released Date/Time: Aug 19, 2024 01:18 PM Reporting Lab: [place] [facility] [address] [place] [address] Performing Lab: [place] [facility] [address] [place] [address] [facility] CBC PLATELET MEAN VOLUME [ENTITIC VOLUME] IN BLOOD BY AUTOMATED COUNT 11.5 fL 7.5 - 11.2 08/24 H Specimen Type: BLOOD No comment entered. Ordering Provider: SHELTON OLIVER R Report Released Date/Time: Aug 19, 2024 01:18 PM Reporting Lab: [place] [facility] [address] [place] [address] Performing Lab: [place] [facility] [address] [place] [address] [facility] CBC ERYTHROCYTE DISTRIBUTIO N WIDTH [RATIO] BY AUTOMATED COUNT 13.0 11.8 - 15.1 08/24 Specimen Type: BLOOD No comment entered. Ordering Provider: SHELTON OLIVER R Report Released Date/Time: Aug 19, 2024 01:18 PM Reporting Lab: [place] [facility] [address] [place] [address] Performing Lab: [place] [facility] [address] [place] [address] [facility] CBC LYMPHOCYTES /100 LEUKOCYTES IN BLOOD BY AUTOMATED COUNT 31.2 08/24 Specimen Type: BLOOD No comment entered. Ordering Provider: SHELTON OLIVER R Report Released Date/Time: Aug 19, 2024 01:18 PM Reporting Lab: [place] [facility] [address] [place] [address] Performing Lab: [place] [facility] [address] [place] [address] [facility] CBC MONOCYTES/1 00 LEUKOCYTES IN BLOOD BY AUTOMATED COUNT 11.9 08/24 Specimen Type: BLOOD No comment entered. Ordering Provider: SHELTON OLIVER R Report Released Date/Time: Aug 19, 2024 01:18 PM Reporting Lab: [place] [facility] [address] [place] [address] Performing Lab: [place] [facility] [address] [place] [address] [facility] CBC NEUTROPHILS /100 LEUKOCYTES IN BLOOD BY AUTOMATED COUNT 54.8 08/24 Specimen Type: BLOOD No comment entered. Ordering Provider: SHELTON OLIVER R Report Released Date/Time: Aug 19, 2024 01:18 PM Reporting Lab: [place] [facility] [address] [place] [address] Performing Lab: [place] [facility] [address] [place] [address] [facility] CBC EOSINOPHILS /100 LEUKOCYTES IN BLOOD BY AUTOMATED COUNT 0.7 08/24 Specimen Type: BLOOD No comment entered. Ordering Provider: SHELTON OLIVER Report Released Date/Time: Aug 19, 2024 01:18 PM Reporting Lab: [place] [facility] [address] [place] [address] Performing Lab: [place] [facility] [address] [place] [address] [facility] CBC BASOPHILS/1 00 LEUKOCYTES IN BLOOD BY AUTOMATED COUNT 0.7 08/24 Specimen Type: BLOOD No comment entered. Ordering Provider: SHELTON OLIVER R Report Released Date/Time: Aug 19, 2024 01:18 PM Reporting Lab: [place] [facility] [address] [place] [address] Performing Lab: [place] [facility] [address] [place] [address] [facility] CBC LYMPHOCYTES [#/VOLUME] IN BLOOD BY AUTOMATED COUNT 1.68 10*3/uL 0.77 - 4.50 08/24 Specimen Type: BLOOD No comment entered. Ordering Provider: SHELTON OLIVER R Report Released Date/Time: Aug 19, 2024 01:18 PM Reporting Lab: [place] [facility] [address] [place] [address] Performing Lab: [place] [facility] [address] [place] [address] [facility] CBC MONOCYTES [#/VOLUME] IN BLOOD BY AUTOMATED COUNT 0.64 10*3/uL 0.19 - 0.8 08/24 Specimen Type: BLOOD No comment entered. Ordering Provider: SHELTON OLIVER Report Released Date/Time: Aug 19, 2024 01:18 PM Reporting Lab: [place] [facility] [address] [place] [address] Performing Lab: [place] [facility] [address] [place] [address] [facility] CBC NEUTROPHILS [#/VOLUME] IN BLOOD BY AUTOMATED COUNT 2.95 10*3/uL 2.10 - 8.00 08/24 Specimen Type: BLOOD No comment entered. Ordering Provider: SHELTON OLIVER R Report Released Date/Time: Aug 19, 2024 01:18 PM Reporting Lab: [place] [facility] [address] [place] [address] Performing Lab: [place] [facility] [address] [place] [address] [facility] CBC EOSINOPHILS [#/VOLUME] IN BLOOD BY AUTOMATED COUNT 0.04 10*3/uL 0.00 - 0.60 08/24 Specimen Type: BLOOD No comment entered. Ordering Provider: SHELTON OLIVER R Report Released Date/Time: Aug 19, 2024 01:18 PM Reporting Lab: [place] [facility] [address] [place] [id number] Performing Lab: [place] [facility] [address] [place] [address] [facility] CBC BASOPHILS [#/VOLUME] IN BLOOD BY AUTOMATED COUNT 0.04 10*3/uL 0.00 - 0.20 08/24 Specimen Type: BLOOD No comment entered. Ordering Provider: SHELTON OLIVER R Report Released Date/Time: Aug 19, 2024 01:18 PM Reporting Lab: [place] [facility] [address] [place] [address] Performing Lab: [place] [facility] [address] [place] [address] [facility] CBC PLATELETS RETICULATED /100 PLATELETS IN BLOOD BY AUTOMATED COUNT 7.9 1.0 - 7.0 08/24 H Specimen Type: BLOOD No comment entered. Ordering Provider: SHELTON OLIVER Report Released Date/Time: Aug 19, 2024 01:18 PM Reporting Lab: [place] [facility] [address] [place] [address] Performing Lab: [place] [facility] [address] [place] [address] [facility] CBC IMMATURE GRANULOCYTE S/100 LEUKOCYTES IN BLOOD BY AUTOMATED COUNT 0.7 08/24 Specimen Type: BLOOD No comment entered. Ordering Provider: SHELTON OLIVER Report Released Date/Time: Aug 19, 2024 01:18 PM Reporting Lab: [place] [facility] [address] [place] [address] Performing Lab: [place] [facility] [address] [place] [address] [facility] CBC IMMATURE GRANULOCYTE S [#/VOLUME] IN BLOOD BY AUTOMATED COUNT 0.04 10*3/uL 0.00 - 0.05 08/24 Specimen Type: BLOOD No comment entered. Ordering Provider: SHELTON OLIVER Report Released Date/Time: Aug 19, 2024 01:18 PM Reporting Lab: [place] [facility] [address] [place] [address] Performing Lab: [place] [facility] [address] [place] [address] [facility] Vital Signs Combined list of inpatient and outpatient Vital Signs from Department of Defense and Veterans Affairs, ranging from 12 months to all on record, depending upon the facility. Vital Sign Value Date Comments Source SYSTOLIC BLOOD PRESSURE 136 11/27/2024 12:56:59 [facility] DIASTOLIC BLOOD PRESSURE 86 11/27/2024 12:56:59 [facility] PULSE OXIMETRY 98 % 11/27/2024 12:56:59 [facility] WEIGHT 220.4 11/27/2024 12:56:59 [facility] BMI 30 kg/m2 11/27/2024 12:56:59 [facility] TEMPERATURE 98.4 11/27/2024 12:56:59 [facility] PULSE 89 11/27/2024 12:56:59 [place] [facility] RESPIRATION 18 11/27/2024 12:56:59 [place] [facility] SYSTOLIC BLOOD PRESSURE 137 10/28/2024 15:37:00 [place] [facility] DIASTOLIC BLOOD PRESSURE 88 10/28/2024 15:37:00 [place] [facility] TEMPERATURE 97.7 10/28/2024 15:37:00 [place] [facility] PULSE 78 10/28/2024 15:37:00 [place] [facility] SYSTOLIC BLOOD PRESSURE 138 10/27/2024 15:16:00 [place] [facility] DIASTOLIC BLOOD PRESSURE 81 10/27/2024 15:16:00 [place] [facility] TEMPERATURE 98 10/27/2024 15:16:00 [place] [facility] PULSE 90 10/27/2024 15:16:00 [place] [facility] SYSTOLIC BLOOD PRESSURE 147 10/22/2024 10:55:00 [place] [facility] DIASTOLIC BLOOD PRESSURE 87 10/22/2024 10:55:00 [place] [facility] PULSE OXIMETRY 94 10/22/2024 10:55:00 [facility] [place] [facility] WEIGHT 225.6 10/22/2024 10:55:00 [place] [facility] BMI 31 kg/m2 10/22/2024 10:55:00 [place] [facility] TEMPERATURE 97.9 10/22/2024 10:55:00 [place] [facility] PULSE 87 10/22/2024 10:55:00 [place] [facility] RESPIRATION 20 10/22/2024 10:55:00 [place] [facility] SYSTOLIC BLOOD PRESSURE 151 08/25/2024 14:47:00 [place] [facility] DIASTOLIC BLOOD PRESSURE 96 08/25/2024 14:47:00 [place] [facility] PULSE OXIMETRY 96 08/25/2024 14:47:00 [facility] [place] [facility] WEIGHT 222.5 08/25/2024 14:47:00 [place] [facility] BMI 30 kg/m2 08/25/2024 14:47:00 [place] [facility] PULSE 95 08/25/2024 14:47:00 [place] [facility] RESPIRATION 16 08/25/2024 14:47:00 [place] [facility] Encounters Combined list of: 1) Encounters from Department of Veterans Affairs facilities going backup to the last 18 months, not all VA inpatient encounters are included; 2) Encounters from the Department of Defense facilities going backup to 280 months. Location Location Details Encounter Type Encounter Number Reason For Visit Attending Provider ADM Date DC Date Status Disposition Source [facility] Outpatient Encounter [id number] 07/[address] [facility] Outpatient Encounter [id number] 07/29 [facility] N [facility] Outpatient Encounter [id number] MATTY MYERS 07/30 [facility] N [facility] Outpatient Encounter [id number] 07/31 [facility] N [facility] Outpatient Encounter [id number] 08/06 [facility] OFF/OP EST MAY X REQ PHY/QHP [id number] Diagnos is: ICD-10- CM R07.82 Interco stal pain Gage MARQUEZ 10/09 [facility] OFFICE O/P EST LOW 20 MIN [id number] Diagnos is: ICD-10- CM S22.32X A Fractur e of one rib, left side, init for clos fx IWONA BURNETTE 10/09 [facility] OFF/OP EST MAY X REQ PHY/QHP [id number] Diagnos is: ICD-10- CM R52 Pain, unspeci fied Gage MARQUEZ 10/10 [place] [facility] OFFICE O/P EST LOW 20 MIN [id number] Diagnos is: ICD-10- CM M19.90 Unspeci fied osteoar thritis , unspeci fied site PORFIRIO OLIVER R 10/15 [facility] Outpatient Encounter [id number] 10/[address] [facility] Outpatient Encounter [id number] 10/[address] [facility] Outpatient Encounter [id number] 10/28 [facility] N [facility] Outpatient Encounter [id number] 10/[address] [facility] Outpatient Encounter [id number] 10/[address] [facility] Outpatient Encounter [id number] 12/[address] [facility] [place] [facility] Outpatient Encounter [id number] 12/08 [place] [facility] OFF/OP EST MAY X REQ PHY/QHP [id number] Diagnos is: ICD-10- CM R10.30 Lower abdomin al pain, unspeci fied CUSTRED,TO RRI J 03/27 [facility] [id number] MATTY MYERS RIL L 03/[address] [facility] OFFICE O/P EST LOW 20 MIN [id number] Diagnos is: ICD-10- CM R10.30 Lower abdomin al pain, unspeci fied PORFIRIO OLIVER R 04/02 [facility] OFF/OP EST MAY X REQ PHY/QHP [id number] Diagnos is: ICD-10- CM M25.572 Pain in left ankle and joints of left foot CUSTRED,TO RRI J 04/09 [facility] Outpatient Encounter [id number] 04/13 [facility] Outpatient Encounter [id number] 04/13 [facility] Outpatient Encounter [id number] 04/23 [facility] Outpatient Encounter [id number] 05/13 [facility] Outpatient Encounter [id number] 06/12 [facility] Outpatient Encounter [id number] 07/02 [facility] Outpatient Encounter [id number] 08/17 [facility] Outpatient Encounter [id number] PORFIRIO OLIVER 08/25 [facility] Outpatient Encounter [id number] Diagnos is: ICD-10- CM Z00.00 Encntr for general adult medical exam w/o abnorma l finding s PORFIRIO OLIVER R 08/25 [facility] OFF/OP EST OCTOBER X REQ PHY/QHP [id number] Diagnos is: ICD-10- CM M25.521 Pain in right elbow FRANCISCO GARCIA AMEENA D 10/22 [facility] CB[facility] OFF/OP EST OCTOBER X REQ PHY/QHP [id number] Diagnos is: ICD-10- CM M54.50 Low back pain, unspeci fied CUSTRED,TO RRI J 10/27 [facility] Outpatient Encounter [id number] PORFIRIO OLIVER R 10/28 [facility] CB[facility] OFF/OP EST OCTOBER X REQ PHY/QHP [id number] Diagnos is: ICD-10- CM M54.50 Low back pain, unspeci fied CUSTRED,TO RRI J 10/28 [facility] OFFICE O/P EST LOW 20 MIN [id number] Diagnos is: ICD-10- CM M77.11 Lateral epicond ylitis, right elbow REARDON,CASIE ER E III 11/27 [facility] OFF/OP EST OCTOBER X REQ PHY/QHP [id number] Diagnos is: ICD-10- CM M25.521 Pain in right elbow Gage MARQUEZ 11/27 [facility] Social History Combined list of available smoking, tobacco, and other social history from [facility] and [facility] facilities. Social History Type Response Date Comment Sourc e Tobacco smoking status [facility] VA-TOBACCO NEVER USED 10/16/2023 [facility] History of tobacco use VA-TOBACCO NEVER USED 08/02/2022 [facility] History of tobacco use VA-TOBACCO NEVER USED 08/14/2021 [facility] History of tobacco use VA-TOBACCO FORMER USER 07/05/2020 [facility] History of tobacco use VA-TOBACCO QUIT 5 TO < 15 YRS 12/16/2018 [facility] History of tobacco use VA-TOBACCO FORMER USER 02/03/2018 [facility] History of tobacco use TOBACCO OFFERED P T MEDS (PROVIDER) 04/24/2013 [facility] History of tobacco use LIFETIME NON-USER OF TOBACCO 07/05/2010 [facility] History of tobacco use TOBACCO OFFERED S [facility] 07/06/2009 [facility]
--- NOTE | 2024-12-06 16:37 | XRR_ITS ---
PROCEDURE INFORMATION: Exam: XR Chest Exam date and time: 12/06/2024 4:51 PM Age: 39 years old Clinical indication: Chest pressure; Chest pain; Extremity numbness TECHNIQUE: Imaging protocol: Radiologic exam of the chest. Views: 1 view. COMPARISON: CT abdomen pelvis w con* [id number] 03/27/2024 10:05 AM FINDINGS: Lungs: Lungs are clear. Pleural spaces: There is no pleural effusion or pneumothorax. Heart/Mediastinum: Cardiomediastinal contours are unremarkable. Bones/joints: Bones are unremarkable. XR/XR chest 1V portable [id number] IMPRESSION: No acute findings.
[2024-12-06 16:39] VITALS: BP 155/110; PULSE 95; TEMP 36.4; O2SAT 98; BMI 29.8
--- NOTE | 2024-12-06 16:42 | ECG_ITS ---
[facility] 2024[facility]12[facility]06 Pat Name: Peter Gonzalez Department: Room: Gender: Male Straightener: : 1985 Requested By: Pilar Cowan Order Number: [id number] Patt MD: Giorgio Krishnan M.D. Measurements Intervals [place] Rate: 92 P: 65 IA: 159 QRS: 95 QRSD: 86 T: 50 QT: 341 QTc: 422 Interpretive Statements SINUS RHYTHM BORDERLINE RIGHT AXIS DEVIATION [QRS AXIS > 90] No previous ECG available for comparison Electronically Signed On 12-10-2024 09:11:22 CDT by Giorgio Krishnan M.D. [email or web address]
--- OUTSIDE RECORDS SUMMARY | 2024-12-06 16:42 | XMS_ITS | Clinical Summary ---
Author Organization [facility] Address [address] [place] [address] Phone Care Team Providers Care Raveler Name Role Phone Unavailable Primary Care Provider Unavailabl e Allergies No known active allergies Medications HYDROcodone-taina taminophen (NORCO) 10-325 mg Tablet Take 1 Tablet by mouth every 4 hours as needed for Pain, Moderate. 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 Gender Identity Not on file Sexual Orientation Not on file Last Filed Vital Signs Vital Sign Reading Time Taken Comments Blood Pressure 130/73 10/07/2017 12:10 PM CDT Pulse 74 10/07/2017 12:10 PM CDT Temperature 37.1 C (98.7 F) 10/07/2017 12:10 PM CDT Respiratory Rate 16 10/07/2017 12:10 PM CDT Oxygen Saturation 95% 10/07/2017 12:10 PM CDT Inhaled Oxygen Concentration - - Weight 93 kg (205 lb) 10/07/2017 11:28 AM CDT Height 182.9 cm (6') 10/07/2017 11:28 AM CDT Body Mass Index 27.8 10/07/2017 11:28 AM CDT Plan of Treatment Health Maintenance Due Date Last Done Comments DTAP/TDAP/TD VACCINES (1 - Tdap) 2002 HEPATITIS B VACCINES (1 of 3 - 19+ 3-dose series) 2002 INFLUENZA VACCINE (#1) 2024 HPV VACCINES Aged Out No longer eligi ble based on patient's age to complete this topic Advance Directives For more information, please contact: [phone] * Full Code (Latest Code Status on File) Date Activated Date Inactivated Comments 10/07/2017 11:28 AM 10/07/2017 3:22 PM
--- OUTSIDE RECORDS SUMMARY | 2024-12-06 16:42 | XMS_ITS | Encounter Summary ---
Author Organization [facility] Address [address] [place] [address] Care Team Providers Care Commercial Fisherman Name Role Phone Unavailable Primary Care Provider Unavailabl e Encounter Details Date Type Department Care Team (Late st Contact Info) Description 08/23/2017 Ancillary Orders [facility] - [facility] [address] [place] [address] Reinaldo Parish III, MD [address] [facility] [place] [address] [place] [address] Pain Social History Tobacco Use Types Packs/Day Years Used Date Smoking Tobacco: Former Smokeless Tobacco: Never Sex and Gender Information Value Date Recorded Sex Assigned at Not on file 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 us Reinaldo Parish III, MD MR ORDERABLES Final Result * MRI PRIOR STUDY (08/23/2017 2:17 PM CDT) Narrative 08/23/2017 2:17 PM CDT This exam was auto finalized to allow images to be scanned to PACS. us Reinaldo Parish III, MD MR ORDERABLES Final Result documented in this encounter Visit Diagnoses Diagnosis Pain Generalized pain Pain Generalized pain Pain Generalized pain documented in this encounter
--- OUTSIDE RECORDS SUMMARY | 2024-12-06 16:42 | XMS_ITS | Encounter Summary ---
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 Installer Helper Name Role Phone Unavailable Primary Care Provider Unavailabl e Encounter Details Date Type Department Care Team (Latest Contact Info) Description 12/30/2000 Outpatient Historical [facility] [place] MD [address] [place] [address] Bronchitis, not specified as acute or chronic (Primary Dx) Social History Tobacco Use Types Packs/Day Years Used Date Smoking Tobacco: Never Assessed Sex and Gender Information Value Date Recorded Sex Assigned at Not on file 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
--- OUTSIDE RECORDS SUMMARY | 2024-12-06 16:43 | XMS_ITS | Clinical Summary ---
Author Organization [facility] Address [address] [place]: Epic Prelude ADT [place] [address] Care Team Providers Care Light Air Defense Artillery Crewmember Name Role Phone Unavailable Primary Care Provider Unavailabl e Allergies No known active allergies Medications HYDROcodone-taina taminophen (NORCO) 10-325 mg Tablet Take 1 Tablet by mouth every 4 hours as needed for Pain, Moderate. Max Daily Amount: 6 Tablets 25 Tablet 0 10/07/2017 Active FOLIC ACID ORAL daily. 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 Gender Identity Not on file Sexual Orientation Not on file Last Filed Vital Signs Vital Sign Reading Time Taken Comments Blood Pressure 130/73 10/07/2017 12:10 PM CDT Pulse 74 10/07/2017 12:10 PM CDT Temperature 37.1 C (98.7 F) 10/07/2017 12:10 PM CDT Respiratory Rate 16 10/07/2017 12:10 PM CDT Oxygen Saturation - - Inhaled Oxygen Concentration - - Weight 97.5 kg (215 lb) 05/10/2023 2:34 PM FRONT DESK ADMINISTRATOR Height 182.9 cm (6') 05/10/2023 2:34 PM FRONT DESK ADMINISTRATOR Body Mass Index 29.16 05/10/2023 2:34 PM FRONT DESK ADMINISTRATOR Plan of Treatment Health Maintenance Due Date Last Done Comments HEPATITIS B VACCINES (1 of 3 - 19+ 3-dose series) 2002 DTAP/TDAP/TD VACCINES (2 - T d or Tdap) 04/24/2023 04/24/2013 INFLUENZA VACCINE (#1) 2024 HPV VACCINES Aged Out No longer eligi ble based on patient's age to complete this topic Insurance * Guarantor: [employer] Account Type Relation to Patient Date of Phone Billing Address Corporate Other DEFAULT ADDRESS [address] [place] * Guarantor: [employer] [facility] [employer] ([employer]) Account Type Relation to Patient Date of Phone Billing Address Corporate Other DEFAULT ADDRESS [address] [place]
--- NOTE | 2024-12-06 16:49 | W.ED.CHESTPA ---
HPI - Chest Pain General: Chief Complaint: Chest Pain Stated Complaint: chest pressure Time Seen by Provider: 12/06/24 16:49 Source: patient Mode of arrival: ambulatory Limitations: no limitations History of Present Illness: 39-year-old male states has been having some chest pains over the last 2 days. States been pressure type pain in his right side of his chest. States that it did worsen today he denies any vomiting denies any severe shortness of breath states has had some tingling and numbness to his right lower leg denies any pain or swelling Associated symptoms: Deny abdominal pain, fever(s), nausea or vomiting Related Data Previous Rx's ?Medication ?Instructions ?Recorded ASO brace #1 ea 09/04/22 prednisone 20 mg tablet See Rx Instructions PO .COMPLEX 04/14/24 PRN joint pain flare #30 tabs folic acid 1 mg tablet 1 mg PO DAILY #90 tabs 08/17/24 ibuprofen 800 mg tablet 800 mg PO BID PRN pain (scale 08/17/24 score 7-10) #60 tabs methotrexate sodium 2.5 mg tablet 12.5 mg (5 x 2.5 mg) PO .Q7days 08/17/24 #75 tabs sulfasalazine 500 mg tablet 1 g (2 x 500 mg) PO BID #360 tabs 08/17/24 Allergies Allergy/AdvReac Type Severity Reaction Status Date / Time No Known Allergies Allergy Verified 12/06/24 16:47 Review of Systems Const: Denies: fever(s), chills, body aches or change in appetite ENMT: Denies: throat pain or dental pain Card: Reports: chest pain GI: Denies: abdominal pain, nausea, vomiting or diarrhea : Denies: dysuria Musc: Denies: neck pain or back pain Skin/Breast: Denies: rash Neuro: Denies: headache(s) PFSH ED PFSH: Medical History Seronegative rheumatoid arthritis of both hands Immunization counseling High risk medication use 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 Actinic keratoses Gout Hyperlipemia Personal history of traumatic brain injury Sleep apnea PTSD (post-traumatic stress disorder) Chronic diarrhea No significant past medical history Surgical History History of foot surgery History of left inguinal hernia repair 03/29/22 History of left knee surgery No significant past surgical history Family History Denies family history of Rheumatoid arthritis Diabetes Lupus CAD (coronary artery disease) Chronic kidney disease (CKD) Lung disease Cancer Hypertension Stroke Social History Smoking and tobacco/nicotine status: never used tobacco/nicotine Alcohol intake: current Alcohol intake frequency: few times a month Physical Exam Const: COMMON NORMALS: no acute distress, patient oriented x3 and healthy appearing HENMT: COMMON NORMALS: normocephalic and atraumatic HEAD & SCALP: normocephalic and atraumatic Eye: COMMON NORMALS: Equal, round and reactive pupils present and EOMs intact bilaterally PUPIL: Yes Equal, round and reactive pupils present Neck/C-Spine: COMMON NORMALS: full ROM and supple Chest: COMMONS NORMALS: normal inspection of the chest and normal palpation of entire chest wall Resp: COMMON NORMALS: normal respiratory effort, No retractions, No use of accessory muscles and clear to auscultation bilaterally AUSCULTATION: clear to auscultation bilaterally Cardio: COMMON NORMALS: regular rate, regular rhythm and No murmurs present (Cardio) RATE: regular rate RHYTHM: regular rhythm GI: COMMON NORMALS: Normal to inspection, nondistended, normoactive bowel sounds present, Soft to palpation, non-tender and no masses PALPATION: Yes Soft to palpation Extremity: COMMON NORMALS: normal to inspection and full ROM Neuro: COMMON NORMALS: patient oriented x3, moves all extremities and no focal motor deficits Psych: COMMON NORMALS: mental status grossly normal, Normal thought process present and cooperative THOUGHT PROCESS: Normal thought process present Skin: COMMON NORMALS: no rashes or lesions noted and no wounds GENERAL SKIN EXAM: no rashes or lesions noted Course Vital Signs: Vital signs: Vital Signs Temperature 97.6 F 12/06/24 16:39 Pulse Rate 92 12/06/24 17:15 Respiratory Rate 16 12/06/24 17:15 Blood Pressure 152/93 12/06/24 17:15 Pulse Oximetry 95 12/06/24 17:15 Oxygen Delivery Me thod Room Air 12/06/24 17:15 MDM - Chest Pain Medical Decision Making Patient presents here with chest pain atypical in nature patient has no signs of ACS troponin here is normal he does have some paresthesias to his left lower leg exam is benign he stable for discharge follow-up PCP return if worsening. Medical Records I reviewed the patient's medical records. Lab Data I reviewed the patient's lab results. 12/06/24 16:58 12/06/24 16:58 Radiology Impressions Chest X-Ray 12/06/24 16:37 IMPRESSION: No acute findings. Laboratory Results WBC 5.56 10^3/uL (3.29-11.43) 12/06/24 16:58 RBC 4.69 10^6/uL (3.85-5.65) 12/06/24 16:58 Hgb 14.70 g/dL (11.27-16.99) 12/06/24 16:58 Hct 42.2 % (37-53) 12/06/24 16:58 MCV 90.0 fl (82-101) 12/06/24 16:58 MCH 31.3 pg (27-33) 12/06/24 16:58 MCHC 34.8 g/dL (30-55) 12/06/24 16:58 RDW 12.9 % (12.1-15.1) 12/06/24 16:58 Plt Count 153 10^3/cmm (157-399) L 12/06/24 16:58 MPV 10.5 fL (7.4-10.4) H 12/06/24 16:58 Neut % (Auto) 48.4 % 12/06/24 16:58 Lymph % (Auto) 37.6 % 12/06/24 16:58 Bowie % (Auto) 10.4 % 12/06/24 16:58 Eos % (Auto) 2.2 % 12/06/24 16:58 Baso % (Auto) 0.7 % 12/06/24 16:58 Neut # (Auto) 2.69 10^3/uL (1.8-7.7) 12/06/24 16:58 Lymph # (Auto) 2.1 10^3/uL (0.8-4.8) 12/06/24 16:58 Bowie # (Auto) 0.6 10^3/uL (0.2-0.9) 12/06/24 16:58 Eos # (Auto) 0.1 10^3/uL (0.0-0.8) 12/06/24 16:58 Baso # (Auto) 0.0 10^3/uL (0.0-0.1) 12/06/24 16:58 Nucleated RBC % (auto) 0 % 12/06/24 16:58 Nucleated RBCs # 0.0 /100WBC 12/06/24 16:58 PT 12.00 SECONDS (12.1-14.9) L 12/06/24 16:58 INR 0.83 (0.8-1.2) 12/06/24 16:58 Sodium 136 mmol/L (136-145) 12/06/24 16:58 Potassium 3.7 mmol/L (3.5-5.1) 12/06/24 16:58 Chloride 99 mmol/L (98-107) 12/06/24 16:58 Carbon Dioxide 23 mmol/L (22-29) 12/06/24 16:58 Anion Gap 17.7 (5-19) 12/06/24 16:58 BUN 12 mg/dL (6-20) 12/06/24 16:58 Creatinine 1.1 mg/dL (0.7-1.2) 12/06/24 16:58 GFR Calculation 73.8 mL/min (90-130) L 12/06/24 16:58 Glucose 113 mg/dL (65-115) 12/06/24 16:58 Calculated Osmolality 283 mOsm/kg (285-295) L 12/06/24 16:58 Calcium 9.4 mg/dL (8.5-10.5) 12/06/24 16:58 Total Bilirubin 0.5 mg/dL (0.15-1.2) 12/06/24 16:58 AST 24 U/L (0-40) 12/06/24 16:58 ALT 25 U/L (0-41) 12/06/24 16:58 Alkaline Phosphatase 95 U/L (40-130) 12/06/24 16:58 Troponin T Baseline 8 ng/L (0-15) 12/06/24 16:58 Total Protein 7.1 g/dL (6.6-8.7) 12/06/24 16:58 Albumin 4.7 g/dL (3.5-5.2) 12/06/24 16:58 Globulin 2.4 g/dL (1.3-4.6) 12/06/24 16:58 Lipase 53 U/L (13-60) 12/06/24 16:58 All radiology interpretation(s) finalized by discharge EKG Data EKG 1: I personally reviewed and interpreted this EKG as follows: EKG interpretation date: 12/06/24 EKG interpretation time: 16:42 Interpretation: nsr hr [address] elevation qrs 86 qtc 391 Discharge Plan Discharge Patient Disposition: Home Clinical Impression: Chest pain Condition: Stable Prescriptions: No Action (DME) ASO brace See Rx Instructions .Route .MEDSUPPLY Qty: 1 0RF Rx Instructions: As directed folic acid 1 mg tablet 1 mg PO DAILY Qty: 90 3RF ibuprofen 800 mg tablet 800 mg PO BID PRN (Reason: pain (scale score 7-10)) Qty: 60 0RF methotrexate sodium 2.5 mg tablet 12.5 mg PO .Q7days Qty: 75 1RF Rx Instructions: take 5 tabs on same day once a week. sulfasalazine 500 mg tablet 1 g PO BID Qty: 360 1RF Rx Instructions: give with food. prednisone 20 mg tablet See Rx Instructions PO .COMPLEX PRN (Reason: joint pain flare) Qty: 30 1RF Rx Instructions: take 1 or 2 tab daily for up to 7 days as needed for arthritis flare PO PRN; Discharge Orders: Discharge ED (Routine); Ordered 12/06/24 Ordered By: Pilar Cowan Referrals: Shyann Corrales RESOURCE AGENT [Primary Care Provider, Nurse Practitioner] - 4-7 days Discharge Diet: Advance as tolerated Discharge Activity: Resume usual activity Patient Instructions: Chest Pain (ED), Paresthesia (ED) Print Language: Kazakh Coding Level of Care Code ED Reeling Machine Setup Operator for Nicholas Manriquez
[2024-12-06] MEDS: aspirin 81 mg Chew Tablet 324 MG PO (17:04)
[2024-12-06 17:11] LABS: Basophils % 0.7 %; Eosinophils # 0.1 10^3/uL (0.0-0.8); Eosinophils % 2.2 %; Hematocrit 42.2 % (37-53); Lymphocytes # 2.1 10^3/uL (0.8-4.8); Lymphocytes % 37.6 %; Mean Corpuscular HGB Conc 34.8 g/dL (30-55); Mean Corpuscular Hemoglobin 31.3 pg (27-33); Mean Platelet Volume 10.5 fL (7.4-10.4); Monocytes # 0.6 10^3/uL (0.2-0.9); Monocytes % 10.4 %; Neutrophils # 2.69 10^3/uL (1.8-7.7); Neutrophils % 48.4 %; Nucleated Red Blood Cells % 0 %; Platelet Count 153 10^3/cmm (157-399); Red Blood Count 4.69 10^6/uL (3.85-5.65); Red Cell Distribution Width 12.9 % (12.1-15.1); White Blood Count 5.56 10^3/uL (3.29-11.43)
[2024-12-06 17:15] VITALS: BP 152/93; PULSE 92; RESP 16; O2SAT 95
[2024-12-06 17:19] LABS: INR 0.83 (0.8-1.2)
[2024-12-06 17:28] LABS: Troponin(5th) Baseline 8 ng/L (0-15)
[2024-12-06 17:40] LABS: Alanine Aminotransferase 25 U/L (0-41); Albumin Level 4.7 g/dL (3.5-5.2); Alkaline Phosphatase 95 U/L (40-130); Aspartate Amino Transferase 24 U/L (0-40); Blood Urea Nitrogen 12 mg/dL (6-20); Calcium 9.4 mg/dL (8.5-10.5); Carbon Dioxide 23 mmol/L (22-29); Chloride 99 mmol/L (98-107); Globulin 2.4 g/dL (1.3-4.6); Glomerular Filtration Rate 73.8 mL/min (90-130); Glucose 113 mg/dL (65-115); Lipase 53 U/L (13-60); Osmolality Calculated 283 mOsm/kg (285-295); Sodium 136 mmol/L (136-145); Total Bilirubin 0.5 mg/dL (0.15-1.2); Total Protein 7.1 g/dL (6.6-8.7)
[2024-12-06 17:41] LABS: Anion Gap 17.7 (5-19); Potassium 3.7 mmol/L (3.5-5.1)
[2024-12-06 17:50] VITALS: BP 147/98; PULSE 89; O2SAT 95
== END 2024-12-06 17:51 | disposition home or self-care (01) ==
PROVIDERS: Emergency Provider Emergency Medicine; PCP Nurse Practitioner
DX: R07.9 Chest pain, unspecified (principal); E78.5 Hyperlipidemia, unspecified
CPT/HCPCS: 71045; 80053; 83690; 84484; 85025; 85610; 93005; 99285; J9999

== ENCOUNTER 2024-12-15 11:59 | Outpatient (CLI) | payer OTHER, SELFPAY ==
--- NOTE | 2024-12-15 12:05 | MR_ITS ---
WS: [id number] MRI THORACIC SPINE WITHOUT CONTRAST TECHNIQUE: Sagittal T1, T2 and STIR imaging. Axial T2 imaging. Noncontrast imaging obtained. CLINICAL INFORMATION: MID BACK PAIN W/NUMBNESS TO LOWER EXTREMITY COMPARISON: None. FINDINGS: Mild thoracic curve. No acute compression. No high-grade central canal stenosis. Cord signal is normal. Minimal disc bulging at T6-T8 with slight effacement of the ventral thecal sac. Tiny central protrusions at T6-T7 and T8-9 with slight contact of the thoracic cord. Tiny RIGHT paracentral protrusion T7-8 with slight indentation on the thoracic cord. No significant central canal stenosis. Moderate facet arthropathy lower thoracic spine. Normal caliber descending thoracic aorta. Adrenal glands are normal. Partially visualized LEFT renal cysts. Partially visualized LEFT renal cyst measuring 2.5 cm. MR/MR thoracic spin wo con* [id number] IMPRESSION: 1. Mild thoracic curve. No acute compression fractures. 2. Small central protrusions in the mid thoracic spine described above. 3. No high-grade central canal stenosis.
--- NOTE | 2024-12-15 12:05 | MR_ITS ---
WS: [id number] MRI LUMBAR SPINE NONCONTRAST TECHNIQUE: Sagittal T1, T2 and STIR imaging. Axial T1 and T2 imaging. CLINICAL INFORMATION: LOWER MID BACK PAIN W/NUMBNESS TO LOWER EXTREMITIES COMPARISON: None. FINDINGS: Mild lumbar curve. No acute compression. No high-grade central canal stenosis. L1-L2: Mild facet arthropathy. L2-L3: Mild facet arthropathy. Spinal canal and foramen are patent. L3-L4: No significant disc bulging. Mild facet arthropathy. Spinal canal is patent. Mild RIGHT foraminal narrowing. L4-L5: Mild annular bulging. Slight effacement of ventral thecal sac. Mild to moderate facet arthropathy. Mild RIGHT foraminal narrowing. L5-S1: Mild annular bulging. Mild facet arthropathy. Spinal canal and foramen are patent. Visualized pelvic bony structures: Normal. Paravertebral soft tissues: Normal. 2.7 cm LEFT renal cyst. Smaller LEFT renal cysts. MR/MR lumbar spine wo con* [id number] IMPRESSION: 1. Mild lumbar curve. No acute compression. No high-grade central canal stenos is. 2. Mild RIGHT L3-4 and L4-5 foraminal narrowing without significant nerve root impingement. 3. Mild annular bulging L4-5 with slight effacement of the thecal sac. 4. Mild to moderate facet arthropathy L3-L5 worse at L5-S1.
== END 2024-12-15 12:00 | disposition home or self-care (01) ==
LOC: RAD 12:01
PROVIDERS: PCP Nurse Practitioner; Visit Provider Nurse Practitioner Family
DX: M51.24 Other intervertebral disc displacement, thoracic region (principal); M48.061 Spinal stenosis, lumbar region without neurogenic claudication; M47.816 Spondylosis without myelopathy or radiculopathy, lumbar region; M47.817 Spondylosis without myelopathy or radiculopathy, lumbosacral region; M51.360 Other intervertebral disc degeneration, lumbar region with discogenic back pain only
CPT/HCPCS: 72146; 72148

== ENCOUNTER 2025-02-10 08:39 | Outpatient (CLI) | payer OTHER, SELFPAY ==
[2025-02-10 09:17] LABS: Hematocrit 42.1 % (37-53); Hemoglobin 14.50 g/dL (11.27-16.99); Mean Corpuscular HGB Conc 34.4 g/dL (30-55); Mean Corpuscular Hemoglobin 31.0 pg (27-33); Mean Corpuscular Volume 90.0 fl (82-101); Nucleated Red Blood Cells % 0 %; Platelet Count 166 10^3/cmm (157-399); Red Blood Count 4.68 10^6/uL (3.85-5.65); White Blood Count 8.01 10^3/uL (3.29-11.43)
[2025-02-10 09:37] LABS: Alanine Aminotransferase 39 U/L (0-41); Albumin Level 4.4 g/dL (3.5-5.2); Alkaline Phosphatase 76 U/L (40-130); Aspartate Amino Transferase 24 U/L (0-40); Globulin 2.9 g/dL (1.3-4.6); Total Protein 7.3 g/dL (6.6-8.7)
== END 2025-02-10 08:40 | disposition home or self-care (01) ==
PROVIDERS: PCP Nurse Practitioner; Visit Provider Internal Medicine Rheumatology
DX: Z79.899 Other long term (current) drug therapy (principal)
CPT/HCPCS: 36415; 80076; 82565; 85025; 85651; 86140

== ENCOUNTER → 2025-02-11 12:58 | Outpatient (BNVA) | payer OTHER, SELFPAY | PROVIDERS: PCP Nurse Practitioner; Visit Provider Internal Medicine Rheumatology | DX: M77.52 Other enthesopathy of left foot and ankle (principal); Z79.899 Other long term (current) drug therapy; Z71.85 Encounter for immunization safety counseling; M06.041 Rheumatoid arthritis without rheumatoid factor, right hand; M06.042 Rheumatoid arthritis without rheumatoid factor, left hand | CPT/HCPCS: 99214 ==

== ENCOUNTER → 2025-03-01 13:08 | Outpatient (BNVA) | payer OTHER, SELFPAY | PROVIDERS: PCP Nurse Practitioner; Referring Provider Nurse Practitioner; Visit Provider Anesthesiology Pain Medicine | DX: M54.9 Dorsalgia, unspecified (principal); M47.816 Spondylosis without myelopathy or radiculopathy, lumbar region | CPT/HCPCS: 99214 ==

== ENCOUNTER → 2025-03-10 10:17 | Outpatient (BNVA) | payer OTHER, SELFPAY | PROVIDERS: PCP Nurse Practitioner; Visit Provider Anesthesiology Pain Medicine | DX: M47.816 Spondylosis without myelopathy or radiculopathy, lumbar region (principal) | CPT/HCPCS: 64493; 64494; 64495; J1010; J3490; J9999 ==

== ENCOUNTER → 2025-03-29 08:12 | Outpatient (BNVA) | payer OTHER, SELFPAY | PROVIDERS: PCP Nurse Practitioner; Visit Provider Anesthesiology Pain Medicine | DX: M47.816 Spondylosis without myelopathy or radiculopathy, lumbar region (principal) | CPT/HCPCS: 99214 ==